=== PATIENT | male | born 1960 | race Caucasian/White ===

== ENCOUNTER 2017-01-15 09:30 | Inpatient (IN) ==
[2017-01-15] MEDS ORDERED: 0.9 % Sodium Chloride 1,000 ML IVC ONE (09:57)
[2017-01-15] MEDS ORDERED: Ondansetron 4 MG/2 ML VIAL IVP ONE (09:57)
--- NOTE | 2017-01-15 09:57 | Emergency Department Note ---
Disposition Clinical Impression: Hyponatremia Alcohol withdrawal seizure Qualifiers: Complication of substance-induced condition: with unspecified complication Qualified Code(s): F10.239 - Alcohol dependence with withdrawal, unspecified; R56.9 - Unspecified convulsions Disposition: Admitted As Inpatient Condition: Fair Referrals: Varun Jimenez MD [Primary Care Provider] - Forms: ED Satisfaction Letter Time of Disposition: 13:17 Nausea/Vomiting/Diarrhea HPI - General Chief complaint: ED Nausea/Vomiting/Diarrhea Stated complaint: vomiting, diarrhea Time Seen by Provider: 01/15/17 09:40 Source: patient, family Nursing Notes Reviewed: Yes Vital Signs Reviewed: Yes - History of Present Illness HPI Narrative: Patient is a 56-year-old male who presents to [facility] ED with 1 week history of nausea vomiting and diarrhea. States everything has been very watery. Patient is an alcoholic who has been drinking approximately 30 pack of [place] lites daily every month for the last 3 months. Family states they made him get checked out because they noticed his tremors to be worsening and he was starting to be more confused at home and stumble around. Family also states he has not been eating any food and just drinking. Patient denies any chest pain or difficulty breathing. No abdominal pain. No problems with urination. No fevers/chills. Denies any excessive Tylenol or Motrin use. No other medical problems. Pt Subjective Complaint: vomiting, diarrhea Onset (ago): week(s) Description of emesis: watery Description of Diarrhea: water Associated Abdominal Pain: No Improves with: nothing Worsens with: nonthing Associated symptoms: Reports: headaches, nausea/vomiting. Denies: chest pain, cough, diaphoresis, fever/chills, shortness of breath - Related Data Home Medications Medication Instructions Recorded Confirmed HydrOXYzine PO PRN PRN 02/27/16 Multivitamin PO DAILY 02/27/16 Previous Rx's Medication Instructions Recorded Chlordiazepoxide [Librium] 75 mg PO TID #21 capsule 03/04/16 LORazepam [Ativan] 1 mg PO Q4HR PRN #60 tablet 03/04/16 Allergies Allergy/AdvReac Type Severity Reaction Status Date / Time Sulfa (Sulfonamide Allergy Mild Rash Verified 01/15/17 09:32 Antibiotics) All systems ED: reviewed and negative except as stated. Past Medical History - Past Medical History Attestation: Yes The following information was validated with the patient. Source: patient Medical history: Reports: no medical history Surgical history: Reports: other Psychiatric history: Reports: anxiety, depression - Social History Smoking Status: Current every day smoker Smokeless Tobacco Status: No Alcohol use: Reports: heavy Drug use: Reports: none Physical Exam - General Limitations: no limitations General appearance: alert, in no apparent distress - Head Head exam: atraumatic, normocephalic, normal inspection - Eye Eye exam: Present: normal appearance, PERRL, EOMI - ENT ENT exam: normal exam, normal oropharynx, mucous membranes moist - Neck Neck exam: Present: normal inspection, full ROM, trachea midline - Chest Chest inspection: Present: normal inspection, symmetric chest wall rise - Respiratory Respiratory exam: Present: normal lung sounds bilaterally - Cardiovascular Cardiovascular exam: Present: normal rhythm, tachycardia - Abdominal Exam Abdominal exam: Present: soft, Non-Tender, normal bowel sounds. Absent: tenderness, distention, guarding, rebound, rigidity - Extremities Exam Extremities exam: Present: normal inspection, full ROM. Absent: tenderness, pedal edema - Back Exam Back exam: Present: normal inspection, full ROM. Absent: tenderness - Neurological Exam Neurological exam: Present: alert - Psychiatric Psychiatric exam: Present: normal affect, normal mood - Skin Skin exam: Present: warm, dry, intact, normal color Course Course Narrative: Patient seen and examined. Positive vomiting and diarrhea. No associated abdominal pain. Patient is an alcoholic and had 4-5 beers this morning prior to coming in. Worsening tremors, ataxia. We will give a liter of fluids, check labs, Zofran for nausea. 1 mg Ativan for any alcohol withdrawal. - Reevaluation(s) Reevaluation #1: While workup was being completed, patient had a seizure. 1 mg of Ativan was given. His seizure abated. Labwork shows low sodium of 114. We will have the team come in and place a PICC line and order 3% saline. I spoke with the acid conditioning worker Dr. Ann who has accepted patient for admission. States to repeat a BMP stat and if still low, we can start the 3% saline. Time: 13:15 Vital Signs Temperature 98.0 F 01/15/17 09:32 Pulse Rate 106 01/15/17 09:32 Respiratory Rate 14 01/15/17 09:32 Blood Pressure 141/79 01/15/17 09:32 O2 Sat by Pulse Oximetry 95 01/15/17 09:32 Temperature 98.0 F 01/15/17 09:32 Pulse Rate 85 01/15/17 11:00 Respiratory Rate 16 01/15/17 11:00 Blood Pressure 132/90 01/15/17 11:00 O2 Sat by Pulse Oximetry 97 01/15/17 11:00 Oxygen Delivery Oxygen Delivery Room Air Nausea/Vomiting/Diarrhea - MDM Narrative Medical decision making narrative: I examined this patient and my medical decision-making was reviewed with the [employer] UNIT OPERATOR/PA/Advanced Practice Nurse/Resident Physician. I agree with the documented findings, disposition and treatment plan as described except to the extent set forth below. Patient seen and evaluated that Dr. Salazar and myself, I agree with her evaluation and management plan, supravascular the patient's stay. Patient comes in today he is now on history of alcoholism quit drinking and then has drank a little bit this morning. He has been cooperative. Some nauseous, little bit weak but generalized. Not having any chest pain no fevers and no shortness of breath at this time. When start do a workup on him for his alcoholism. 1114 hrs.: Patient had one generalized seizure here. His sodium is low sort and replace that with 3% saline. Gave him another dose of Ativan here. We will also CT has had an once his labs are back any stable we will bring him in for admission. 1150 hrs.: Because the seizure we talked with pharmacy about 3% saline. They said they like to have it administered through a central line due to the fact that it can be tissue destructive visit extravasates. Patient refuses central line and I do not think he needs a central line in place for other reasons. Review make sure that he has a good IV in his before meals region where he has large veins. From the saline over an hour also running with a second IV so that it is diluted. And we will monitor for any signs of burning or pain in the area. It is difficult to say whether his seizure is from his alcohol withdrawal or from its from his low sodium. His last sodium was in the 130s where this was 114. His alcohol today is 66. Patient's in agreement with this plan. 1200 hrs.: I spoke with the PICC line team they said they would be appropriate PICC line in him in the ICU. In the medication can be run through that since that goes into the SVC. So hold off with the peripheral IV administration of the 3% saline even the pharmacy has diluted down to 500 mL's of fluid. Patient is stable at this time waiting on head CT. Then we will discuss case with ICU and admission. Head CT 01/15/17 11:14 IMPRESSION: No acute intracranial abnormality. D/ / Fredi Montesinos MD / Fredi Montesinos MD Interpreting Provider: Fredi Montesinos MD - Medical Records Medical records reviewed: Yes I reviewed the patient's medical records. - Lab Data Lab results reviewed: Yes I reviewed the patient's lab results. Result diagrams: 01/15/17 10:21 01/15/17 10:21 Lab Results 01/15/17 01/15/17 01/15/17 Range/Units 10:21 10:21 10:21 WBC 4.4 (4.3-11.1) K/mcL RBC 4.58 (4.19-5.50) M/mcL Hgb 14.4 (12.9-16.9) g/dL Hct 38.9 (37.5-50.1) % MCV 84.9 (83.0-100.0) fL MCH 31.4 (28.0-33.3) pg MCHC 37.0 H (31.6-35.5) g/dL RDW 11.9 (11.5-14.5) % Plt Count 54 L (140-400) K/mcL MPV 10.1 (9.4-12.4) fL Immature Gran % 0.7 (0-4) % Seg Neutrophils % 77.9 % Lymphocytes % 7.7 % Monocytes % 13.2 % Eosinophils % 0.0 % Basophils % 0.5 % Neutrophils # 3.4 (1.6-8.9) K/mcL Lymphocytes # 0.3 L (0.6-4.6) K/mcL Monocytes # 0.6 (0.0-1.3) K/mcL Eosinophils # 0.0 (0.0-0.6) K/mcL Basophils # 0.0 (0.0-0.2) K/mcL Sodium 114 L* (136-145) mEq/L Potassium 3.1 L (3.5-4.5) mEq/L Chloride 79 L (98-109) mEq/L Carbon Dioxide 24 (19-29) mEq/L BUN 5 L (8-26) mg/dL Creatinine 0.59 L (0.72-1.25) mg/dL Est GFR ( Amer) > 60 (> 60) Est GFR (Non-Af Amer) > 60 (> 60) BUN/Creatinine Ratio 8 (6-26) Glucose 99 (70-99) mg/dL POC Glucose (58-89) Calculated Osmolality 235 L (280-300) Calcium 8.9 (8.6-10.8) mg/dL Total Bilirubin 0.7 (0.2-1.2) mg/dL AST 232 H (5-34) Units/L ALT 110 H (0-55) Units/L Alkaline Phosphatase 105 (38-126) Units/L Troponin I 0.00 (0-0.03) ng/mL Serum Total Protein 6.5 (6.0-8.3) g/dL Albumin 3.4 L (3.5-5.0) g/dL Globulin 3.1 (2.4-3.5) g/dL Albumin/Globulin Ratio 1.1 (1.1-2.2) Lipase 54 (8-78) Units/L Acetaminophen 5.0 L (10-30) mcg/mL Ethyl Alcohol 66 H (0-10) mg/dL 01/15/ Range/Units 11:36 WBC (4.3-11.1) K/mcL RBC (4.19-5.50) M/mcL Hgb (12.9-16.9) g/dL Hct (37.5-50.1) % MCV (83.0-100.0) fL MCH (28.0-33.3) pg MCHC (31.6-35.5) g/dL RDW (11.5-14.5) % Plt Count (140-400) K/mcL MPV (9.4-12.4) fL Immature Gran % (0-4) % Seg Neutrophils % % Lymphocytes % % Monocytes % % Eosinophils % % Basophils % % Neutrophils # (1.6-8.9) K/mcL Lymphocytes # (0.6-4.6) K/mcL Monocytes # (0.0-1.3) K/mcL Eosinophils # (0.0-0.6) K/mcL Basophils # (0.0-0.2) K/mcL Sodium (136-145) mEq/L Potassium (3.5-4.5) mEq/L Chloride (98-109) mEq/L Carbon Dioxide (19-29) mEq/L BUN (8-26) mg/dL Creatinine (0.72-1.25) mg/dL Est GFR ( Amer) (> 60) Est GFR (Non-Af Amer) (> 60) BUN/Creatinine Ratio (6-26) Glucose (70-99) mg/dL POC Glucose 112 H (58-89) Calculated Osmolality (280-300) Calcium (8.6-10.8) mg/dL Total Bilirubin (0.2-1.2) mg/dL AST (5-34) Units/L ALT (0-55) Units/L Alkaline Phosphatase (38-126) Units/L Troponin I (0-0.03) ng/mL Serum Total Protein (6.0-8.3) g/dL Albumin (3.5-5.0) g/dL Globulin (2.4-3.5) g/dL Albumin/Globulin Ratio (1.1-2.2) Lipase (8-78) Units/L Acetaminophen (10-30) mcg/mL Ethyl Alcohol (0-10) mg/dL - Radiology Data Radiology results reviewed: Yes I reviewed the patient's radiology results. - EKG Data EKG attestation: Yes I reviewed and interpreted this EKG. EKG results narrative: EKG done at 11:15 shows normal sinus rhythm with a rate of 80 beats per minute. No acute ST elevation or depression. Normal axis. Unchanged from prior EKG done 02/27/2016.
[2017-01-15] MEDS ORDERED: *HR* LORazepam 2 MG/ML VIAL IVP ONE (09:59)
[2017-01-15] MEDS ORDERED: Thiamine (B-1) 100 MG in D5% in Water 50 ML IVPB STA (10:12)
[2017-01-15 10:29] LABS: Basophils % 0.5 %; Hematocrit 38.9 % (37.5-50.1); Hemoglobin 14.4 g/dL (12.9-16.9); Immature Granulocytes % 0.7 % (0-4); Lymphocytes # 0.3 K/mcL (0.6-4.6); Lymphocytes % 7.7 %; Mean Corpuscular Hemoglobin 31.4 pg (28.0-33.3); Mean Corpuscular Volume 84.9 fL (83.0-100.0); Mean Platelet Volume 10.1 fL (9.4-12.4); Monocytes # 0.6 K/mcL (0.0-1.3); Monocytes % 13.2 %; Neutrophils # 3.4 K/mcL (1.6-8.9); Red Blood Count 4.58 M/mcL (4.19-5.50); Red Cell Distribution Width 11.9 % (11.5-14.5); Segmented Neutrophils % 77.9 %
[2017-01-15 10:30] LABS: Platelet Count 54 K/mcL (140-400)
[2017-01-15 10:44] LABS: Alanine Aminotransferase 110 Units/L (0-55); Albumin 3.4 g/dL (3.5-5.0); Albumin/Globulin Ratio 1.1 (1.1-2.2); Alkaline Phosphatase 105 Units/L (38-126); Aspartate Amino Transferase 232 Units/L (5-34); BUN/Creatinine Ratio 8 (6-26); Bilirubin,Total 0.7 mg/dL (0.2-1.2); Calcium 8.9 mg/dL (8.6-10.8); Carbon Dioxide 24 mEq/L (19-29); Chloride 79 mEq/L (98-109); Globulin 3.1 g/dL (2.4-3.5); Glucose 99 mg/dL (70-99); Lipase 54 Units/L (8-78); Osmolality,Calculated 235 (280-300); Potassium 3.1 mEq/L (3.5-4.5); Total Protein 6.5 g/dL (6.0-8.3); eGFR For African Americans > 60 (> 60); eGFR For Non-African Americans > 60 (> 60)
[2017-01-15 10:45] LABS: Blood Urea Nitrogen 5 mg/dL (8-26)
[2017-01-15 10:46] LABS: Sodium 114 mEq/L (136-145)
[2017-01-15] MEDS ORDERED: *HR* 3% Sodium Chloride 500 ML IV.SOLN IVC ONE (11:14)
[2017-01-15 11:24] LABS: Ethanol 66 mg/dL (0-10)
[2017-01-15] MEDS ORDERED: *HR* Promethazine 25 MG/ML VIAL IVP PRN (13:55)
[2017-01-15] MEDS ORDERED: diazePAM 10 MG/2 ML SYRINGE IVP PRN ×5 (13:55)
--- NOTE | 2017-01-15 14:16 | Pulmonology History & Physical ---
Date of Encounter: 01/15/17 Time of Encounter: 14:14 Assessment and Plan (1) Hyponatremia Current visit: Yes Status: Acute 114 on admission. Plan to correct with less than 8 mEq every 24 hours. Received 1 L of normal saline in the emergency department. Plan: We will monitor every 2 hours. Consult nephro We will consider starting 3% normal saline after sodium recheck. Protonix for GI prophylaxis. Patient on electrolyte protocol for electrolyte replacement. (2) Alcohol withdrawal Current visit: No Status: Suspected 15 mg of Valium scheduled every 6 hours with 5 mg of Valium every 3 hours when necessary. We will reassess daily for dosing. Qualifiers: Complication of substance-induced condition: with delirium Qualified Code(s ): F10.231 - Alcohol dependence with withdrawal delirium (3) Alcohol withdrawal seizure Current visit: Yes Status: Acute Plan: 15 mg Valium every 6 hours scheduled. 5 mg Valium when necessary every 3 hours. Qualifiers: Complication of substance-induced condition: with unspecified complication Qualified Code(s): F10.239 - Alcohol dependence with withdrawal, unspecified; R56.9 - Unspecified convulsions (4) DVT prophylaxis Current visit: Yes Status: Acute ICDs. (5) Tobacco abuse Current visit: No Status: Acute (6) Elevated LFTs Current visit: Yes Status: Acute Will monitor daily Plan: Right upper quadrant ultrasound. History of Present Illness HPI: Mr. Parker is a 56 year old male who presents emergency department today for nausea and vomiting. Patient states that he has only been able to keep down 5 beers today. He generally drinks 1 beer after another she reports. She states this is about a 30 pack [place] a day. She states he has been increasingly shaky over the past couple days. He is found to be hyponatremic at 114. In the emergency department he had one generalized seizure that was resolved with 1 mg of Ativan. His head CT was read as normal. He is being admitted to the ICU for hyponatremia. He is alert but somewhat confused. He is in no respiratory distress. Past Med Surg Social Fam HX - Past Medical History Medical history: no medical history Psychiatric history: anxiety, depression - Past Surgical History Surgical History: other - Social History Smoking Status: Current every day smoker Smokeless Tobacco Status: No Alcohol use: heavy Drug use: none - Family History Mother Adopted: No Living Status: Hx Family Cardiac Disorders: Yes Hx Family Respiratory Disorders: Yes Hx Family Cancer: Yes Hx Family GI Disorders: No Hx Family Endocrine Disorder: No Hx Family Neuromuscular Disorders: No Hx Family Neurologic Disorders: No Hx Family HEENT Disorders: No Hx Family Autoimmune Disorders: No Father Hx Family Neurologic Disorders: Yes (CVA) Medications and Allergies Cyanocobalamin (Vitamin B-12) [Vitamin B-12] 100 mg PO DAILY 01/15/17 [History] Hydroxyzine HCl [Hydroxyzine HCl] 25 - 50 mg PO Q8H PRN 01/15/17 [History] Multivitamin [Tab-A-Kian] 1 tab PO DAILY 01/15/17 [History] Allergies Sulfa (Sulfonamide Antibiotics) Allergy (Mild, Verified 01/15/17 09:32) Rash All Systems: A 10-system review of systems was performed and is negative for pertinent findings except as documented above in the HPI. Physical Examination General appearance: no acute distress, alert, appears uncomfortable, other ( Confused) Eyes: nonicteric ENT: oropharynx moist Neck: supple, no lymphadenopathy, no JVD Effort: normal Inspection: normal Auscultation: bilateral: clear Cardiovascular: regular rate and rhythm Gastrointestinal: normoactive bowel sounds, soft, non-tender, non-distended Integumentary: normal Extremities: no cyanosis Musculoskeletal: no deformities non-focal exam, pupils equal and round, motor strength normal and symmetric mood appropriate, affect normal Results - Laboratory Findings CBC and BMP: 01/15/17 10:21 01/15/17 13:42 Abnormal lab findings: Abnormal lab results MCHC 37.0 g/dL (31.6-35.5) H 01/15/17 10:21 Plt Count 54 K/mcL (140-400) L 01/15/17 10:21 Lymphocytes # 0.3 K/mcL (0.6-4.6) L 01/15/17 10:21 Sodium 114 mEq/L (136-145) L* 01/15/17 10:21 Potassium 3.1 mEq/L (3.5-4.5) L 01/15/17 10:21 Chloride 79 mEq/L (98-109) L 01/15/17 10:21 BUN 5 mg/dL (8-26) L 01/15/17 10:21 Creatinine 0.59 mg/dL (0.72-1.25) L 01/15/17 10:21 POC Glucose 112 (58-89) H 01/15/17 11:36 Calculated Osmolality 235 (280-300) L 01/15/17 10:21 AST 232 Units/L (5-34) H 01/15/17 10:21 ALT 110 Units/L (0-55) H 01/15/17 10:21 Albumin 3.4 g/dL (3.5-5.0) L 01/15/17 10:21 Acetaminophen 5.0 mcg/mL (10-30) L 01/15/17 10:21 Ethyl Alcohol 66 mg/dL (0-10) H 01/15/17 10:21 - Diagnostic Findings Additional studies: Head CT 01/15/17 11:14 IMPRESSION: No acute intracranial abnormality. D/ / Fredi Montesinos MD / Fredi Montesinos MD Interpreting Provider: Fredi Montesinos MD
[2017-01-15] MEDS ORDERED: diazePAM 10 MG/2 ML SYRINGE IVP SCH (14:21)
[2017-01-15] MEDS ORDERED: Lidocaine -MPF 1% 5 ML AMPUL INFILT ONE (14:48)
[2017-01-15 15:03] LABS: BUN/Creatinine Ratio 7 (6-26); Calcium 8.2 mg/dL (8.6-10.8); Carbon Dioxide 27 mEq/L (19-29); Chloride 83 mEq/L (98-109); Glucose 94 mg/dL (70-99); Osmolality,Calculated 237 (280-300); Potassium 3.4 mEq/L (3.5-4.5); eGFR For African Americans > 60 (> 60); eGFR For Non-African Americans > 60 (> 60)
[2017-01-15 15:04] LABS: Blood Urea Nitrogen 4 mg/dL (8-26)
[2017-01-15 15:05] LABS: Sodium 115 mEq/L (136-145)
[2017-01-15] MEDS ORDERED: 0.9 % Sodium Chloride 1,000 ML IVC SCH (15:15)
[2017-01-15] MEDS: Folic Acid 1 MG in D5% in Water 50 ML IVPB SCH (16:30)
[2017-01-15] MEDS: Pantoprazole 40 MG VIAL IVP SCH (16:31)
--- NOTE | 2017-01-15 17:24 | Nephrology Consult Note ---
Date of Encounter: 01/15/17 Time of Encounter: 17:15 Assessment and Plan (1) Hyponatremia Status: Chronic Hyponatremia in the setting of EtOH abuse and intractable N/D/V Agree with volume repletion for now Will check urine sodium, creatinine and osmolality Will check uric acid level as well as TSH Continue serial sodium check and if repeat sodium is not at least up above 116, will start hypertonic saline at 30cc/hr till sodium up to 120 (2) Alcohol withdrawal Status: Acute Qualifiers: Complication of substance-induced condition: with delirium Qualified Code(s ): F10.231 - Alcohol dependence with withdrawal delirium (3) Hypokalemia Status: Acute Potassium improving with supplements from 3.1 to 3.4likely low from GI losses Will check magnesium levels as well History of Present Illness - Reason for Consult Consult date: 01/15/17 hyponatremia Requesting physician: Chyna Sanchez - History of Present Illness 56 y o male with PMH of EtOH bause admitted with intractable nausea and vomiting along with diarrhea. H was noted with sodium of 114, previously 136 as of march 2016. He had a witnessed seizure activity during ER stay and was treated with valium and also received a liter of saline. Repeat sodium now 115 after almost 4 hours. He reports daily beer consumption up to 30 cans of (12oz) beer daily. He denies any urinary sxs. He reports also smooking under a pack of cigs a day. No diuretics use noted. EtOH level noted elevated at 66. Past Med Surg Social Fam HX - Past Medical History Medical history: no medical history Psychiatric history: anxiety, depression - Past Surgical History Surgical History: other - Social History Smoking Status: Current every day smoker Smokeless Tobacco Status: No Alcohol use: heavy Drug use: none - Family History Mother Adopted: No Living Status: Cause of : old age Hx Family Cardiac Disorders: Yes Hx Family Respiratory Disorders: Yes Hx Family Cancer: Yes Hx Family GI Disorders: No Hx Family Endocrine Disorder: No Hx Family Neuromuscular Disorders: No Hx Family Neurologic Disorders: No Hx Family HEENT Disorders: No Hx Family Autoimmune Disorders: No Father Living Status: Cause of : stroke Hx Family Neurologic Disorders: Yes (CVA) Medications and Allergies Cyanocobalamin (Vitamin B-12) [Vitamin B-12] 100 mg PO DAILY 01/15/17 [History] Multivitamin [Tab-A-Kian] 1 tab PO DAILY 01/15/17 [History] Diazepam [Valium] 2 mg PO DAILY #12 tablet 01/23/17 [Rx] Diazepam [Valium] 2 mg PO DAILY PRN #10 tablet 01/23/17 [Rx] Disulfiram [Antabuse] 250 mg PO DAILY #30 tablet 01/23/17 [Rx] Folic Acid 1 mg PO DAILY #30 tablet 01/23/17 [Rx] Ipratropium/Albuterol Neb [Duoneb] 3 ml IH Q4HR 30 Days 01/23/17 [Rx] Magnesium Oxide [Mag-Ox] 400 mg PO BID #60 tablet 01/23/17 [Rx] Nebulizer [Aeroeclipse] 1 each AD #1 each 01/23/17 [Rx] Nicotine Patch [Nicoderm] 21 mg TD DAILY #30 patch.td24 01/23/17 [Rx] Sodium Chloride 1 gm PO BID #60 tablet 01/23/17 [Rx] Thiamine (B-1) [Vitamin B-1] 100 mg PO DAILY #30 tablet 01/23/17 [Rx] Allergies Sulfa (Sulfonamide Antibiotics) Allergy (Mild, Verified 01/15/17 09:32) Rash Review of Systems All Systems: reviewed and no additional remarkable complaints except as stated ( ten systems reviewed) Exam - Vital Signs Vital signs: Initial Vital Signs Temp Pulse Resp BP Pulse Ox 98.0 F 106 14 141/79 95 01/15/17 09:32 01/15/17 09:32 01/15/17 09:32 01/15/17 09:32 01/15/17 09:32 Vital Signs - Last 8 Hours Temp Pulse Resp BP Pulse Ox 01/15/17 17:05 99.2 F 01/15/17 15:18 82 01/15/17 15:00 86 18 115/68 94 L 01/15/17 14:00 98.5 F 84 18 140/121 94 L Intake and Output 01/15/17 01/15/17 01/15/17 07:59 15:59 23:59 Output Total 800 / 800 Balance -800 / -800 Output: Urine 800 / 800 Other: Stool Size Small Stool Consistency loose liquid Stool Color Green # Bowel Movements 2 Blood Glucose* 102 - General Appearance General appearance: moderate distress (shaking continuously) EENT: ATNC, mucous membranes moist Neck: no JVD, supple Respiratory: clear Cardiology: no edema, regular rate, regular rhythm, normal S1, normal S2 Gastrointestinal: no tenderness, no guarding Integumentary: warm and dry Neurologic: alert and oriented x3 Musculoskeletal: no deformities Psychiatric: mood/affect appropriate Results - Lab Results 01/21/17 07:11 01/23/17 06:12 Most recent lab results Calcium 8.2 mg/dL (8.6-10.8) L 01/15/17 13:42 Consult Discharge Plan - Plan Instructions: Alcohol Withdrawal (DC), Pneumonia (DC) Additional Instructions: STOP DRINKING ALCOHOL. USE OXYGEN ALL THE TIME FOLLOW UP WITH primary care doctor within 1 week Referrals: Varun Jimenez MD [Primary Care Provider] - (f/u in 1 week) Prescriptions: Ipratropium/Albuterol Neb [Duoneb] 3 ml IH Q4HR 30 Days Diazepam [Valium] 2 mg PO DAILY PRN #10 tablet PRN Reason: Alcohol Withdrawal Diazepam [Valium] 2 mg PO DAILY #12 tablet Disulfiram [Antabuse] 250 mg PO DAILY #30 tablet Folic Acid 1 mg PO DAILY #30 tablet Nebulizer [Aeroeclipse] 1 each MC AD #1 each Nicotine Patch [Nicoderm] 21 mg TD DAILY #30 patch.td24 Sodium Chloride 1 gm PO BID #60 tablet Thiamine (B-1) [Vitamin B-1] 100 mg PO DAILY #30 tablet
[2017-01-15 17:44] LABS: Bilirubin,Urine Negative (Negative); Blood,Urine Negative (Negative); Clarity,Urine Clear (Clear); Color,Urine Yellow (Yellow); Glucose,Urine (UA) Normal (Normal); Ketones,Urine Negative (Negative); Leukocyte Esterase,Urine Negative (Negative); Nitrite,Urine Negative (Negative); PH,Urine 6.5 pH Units (5.0-8.0); Protein,Urine Negative (Neg-Trace); Specific Gravity,Urine 1.007 (1.010-1.025); Urobilinogen,Urine Normal (Normal)
[2017-01-15 18:03] LABS: Magnesium 1.5 mg/dL (1.6-2.6); Phosphorous 2.8 mg/dL (2.3-4.7)
[2017-01-15 18:04] LABS: Albumin 3.1 g/dL (3.5-5.0); Bilirubin,Direct 0.5 mg/dL (0.0-0.5); Bilirubin,Indirect 0.5 mg/dL (0.0-1.2); Total Protein 6.1 g/dL (6.0-8.3); Uric Acid 2.5 mg/dL (3.5-7.2)
[2017-01-15 18:25] LABS: Thyroid Stimulating Hormone 1.233 mcIU/mL (0.350-4.840)
[2017-01-15 18:57] LABS: Ionized Calcium 1.05 mmol/L (1.15-1.35)
[2017-01-15] MEDS: diazePAM 10 MG/2 ML SYRINGE IVP SCH ×2 (19:58→23:17)
[2017-01-15 20:18] LABS: Creatinine,Urine 34 mg/dL
[2017-01-15 20:43] LABS: Sodium, Urine < 20.0 mEq/L
[2017-01-15 21:55] LABS: Osmolality,Urine 144 mOsm/kg (300-1090)
[2017-01-16] MEDS ORDERED: 0.9 % Sodium Chloride 1,000 ML IVC SCH (00:30)
[2017-01-16] MEDS: diazePAM 10 MG/2 ML SYRINGE IVP PRN ×4 (02:42→20:34)
[2017-01-16 03:33] LABS: Basophils % 0.3 %; Hematocrit 36.7 % (37.5-50.1); Mean Corpuscular Volume 85.5 fL (83.0-100.0); Red Blood Count 4.29 M/mcL (4.19-5.50); Red Cell Distribution Width 11.9 % (11.5-14.5)
[2017-01-16 03:35] LABS: Hemoglobin 13.1 g/dL (12.9-16.9); Immature Granulocytes % 0.6 % (0-4); Immature Platelets 6.9 % (1.1-6.1); Lymphocytes # 0.3 K/mcL (0.6-4.6); Lymphocytes % 10.4 %; Mean Corpuscular HGB Conc 35.7 g/dL (31.6-35.5); Mean Corpuscular Hemoglobin 30.5 pg (28.0-33.3); Mean Platelet Volume 10.3 fL (9.4-12.4); Monocytes # 0.5 K/mcL (0.0-1.3); Monocytes % 15.7 %; Neutrophils # 2.3 K/mcL (1.6-8.9)
[2017-01-16 03:46] LABS: Alanine Aminotransferase 111 Units/L (0-55); Albumin 2.8 g/dL (3.5-5.0); Alkaline Phosphatase 100 Units/L (38-126); Aspartate Amino Transferase 280 Units/L (5-34); BUN/Creatinine Ratio 8 (6-26); Bilirubin,Total 0.8 mg/dL (0.2-1.2); Calcium 7.6 mg/dL (8.6-10.8); Carbon Dioxide 22 mEq/L (19-29); Chloride 87 mEq/L (98-109); Globulin 2.9 g/dL (2.4-3.5); Glucose 80 mg/dL (70-99); Osmolality,Calculated 246 (280-300); Total Protein 5.7 g/dL (6.0-8.3); eGFR For African Americans > 60 (> 60); eGFR For Non-African Americans > 60 (> 60)
[2017-01-16 03:47] LABS: Platelet Count 53 K/mcL (140-400)
[2017-01-16 03:48] LABS: Blood Urea Nitrogen 5 mg/dL (8-26)
[2017-01-16 03:49] LABS: Sodium 120 mEq/L (136-145)
[2017-01-16] MEDS: Potassium Chloride 40 MEQ/200 ML BAG IVPB PRN ×2 (04:11→16:21)
[2017-01-16] MEDS: diazePAM 10 MG/2 ML SYRINGE IVP SCH ×4 (04:53→23:18)
[2017-01-16] MEDS: Pantoprazole 40 MG VIAL IVP SCH (04:53)
[2017-01-16 05:00] LABS: Ionized Calcium 1.02 mmol/L (1.15-1.35)
[2017-01-16 05:09] LABS: Magnesium 1.7 mg/dL (1.6-2.6); Phosphorous 2.3 mg/dL (2.3-4.7)
[2017-01-16] MEDS: Potassium Phosphate 44 MEQ in 0.9 % Sodium Chloride 250 ML IVPB PRN (05:36)
[2017-01-16] MEDS: Magnesium Sulfate 2 GM in D5% in Water 100 ML IVPB PRN ×2 (05:36→15:46)
[2017-01-16] MEDS: Calcium Gluconate 1,000 MG in D5% in Water 100 ML IVPB PRN ×2 (05:36→15:47)
--- NOTE | 2017-01-16 08:39 | Pulmonology Progress Note ---
Date of Encounter: 01/16/17 Time of Encounter: 08:36 Assessment and Plan (1) Hyponatremia Current Visit: Yes Status: Chronic 56 y/o male with h of alcoholism drinks up to 30 beers a day came to ER with N/ V of two days. He had a seziure in the ER and was given Ativian. On admission he had sodium of 114. He was given 1L NS in ER and has been receiving 75cc NS in the ICU. Awake and alert x3. No return of seizures. Sodium has increased 6meq in the past 24 hours. Will continue IVF Continue GI prophylaxis. appreciate nephrology input. -urine sodium <20 (low), hypoosmolar urine, TSH WNL: consistent with hypovolemic hypoosmolar hyponatremia. monitor mental status clear liquid diet. (2) Alcohol withdrawal Current Visit: Yes Status: Acute Fever 102.4, whole body tremors, Continue valium 15mg and 5mg prn continue valium for another 24 hours and will start tapering tomorrow. tynenol prn fever continue thiamine, folic acid continue phenergan for nausea. Qualifiers: Complication of substance-induced condition: with delirium Qualified Code(s ): F10.231 - Alcohol dependence with withdrawal delirium (3) Alcohol withdrawal seizure Current Visit: Yes Status: Acute Has not had repeat seizure. Continue Valium 15mg scheduled and 5mg prn Qualifiers: Complication of substance-induced condition: with unspecified complication Qualified Code(s): F10.239 - Alcohol dependence with withdrawal, unspecified; R56.9 - Unspecified convulsions (4) Elevated LFTs Current Visit: Yes Status: Acute 2nd to chronic acloholism, LFTs stable from yesterday with AST: ALT ratio 2:1. Liver ultrasound shows fatty liver Low platelets (53) Will check PT/INR hepatitis panel pending. (5) Hypokalemia Current Visit: Yes Status: Acute K+ is 3 continue electrolyte protocol replacement. (6) Tobacco abuse Current Visit: Yes Status: Chronic (7) DVT prophylaxis Current Visit: Yes Status: Acute ICDS Subjective Principal diagnosis: Hyponatremia 2nd to alcohol intoxication Interval history: Patient had no acute events overnight. He has no complaints. He is awake and alert and conversing. He denies nausea and vomiting. Objective PUL Vital signs: Last Vital Signs Temp 102.4 F H 01/16/17 07:00 Pulse 90 03/14/17 08:00 Resp 17 01/16/17 08:00 BP 124/71 01/16/17 08:00 Pulse Ox 97 01/16/17 08:03 General appearance: no acute distress, alert Eyes: nonicteric ENT: oropharynx moist Mallampati (class): 1 Neck: no lymphadenopathy, no JVD Effort: normal Auscultation: bilateral: clear Cardiovascular: regular rate and rhythm Gastrointestinal: normoactive bowel sounds, soft, non-tender, non-distended Integumentary: normal Extremities: no cyanosis, no edema, no clubbing Musculoskeletal: no deformities normal mental status, pupils equal and round, CN II-XII normal tremors b/l upper extremities. Results - Laboratory Findings CBC and BMP: 01/16/17 03:20 01/16/17 05:47 Abnormal lab findings: Abnormal lab results WBC 3.2 K/mcL (4.3-11.1) L 01/16/17 03:20 Hct 36.7 % (37.5-50.1) L 01/16/17 03:20 MCHC 35.7 g/dL (31.6-35.5) H 01/16/17 03:20 Plt Count 53 K/mcL (140-400) L 01/16/17 03:20 Lymphocytes # 0.3 K/mcL (0.6-4.6) L 01/16/17 03:20 Immature Plt Fraction 6.9 % (1.1-6.1) H 01/16/17 03:20 Sodium 120 mEq/L (136-145) L* 01/16/17 05:47 Potassium 3.0 mEq/L (3.5-4.5) L 01/16/17 03:20 Chloride 87 mEq/L (98-109) L 01/16/17 03:20 BUN 5 mg/dL (8-26) L 01/16/17 03:20 Creatinine 0.62 mg/dL (0.72-1.25) L 01/16/17 03:20 POC Glucose 102 (58-89) H 01/15/17 15:47 Serum Osmolality 246 mOsm/kg (280-300) L 01/15/17 21:30 Calculated Osmolality 246 (280-300) L 01/16/17 03:20 Uric Acid 2.5 mg/dL (3.5-7.2) L 01/15/17 17:39 Calcium 7.6 mg/dL (8.6-10.8) L 01/16/17 03:20 Ionized Calcium 1.02 mmol/L (1.15-1.35) L 01/16/17 04:25 AST 280 Units/L (5-34) H 01/16/17 03:20 ALT 111 Units/L (0-55) H 01/16/17 03:20 Serum Total Protein 5.7 g/dL (6.0-8.3) L 01/16/17 03:20 Albumin 2.8 g/dL (3.5-5.0) L 01/16/17 03:20 Albumin/Globulin Ratio 1.0 (1.1-2.2) L 01/16/17 03:20 Ur Specific [place] 1.007 (1.010-1.025) L 01/15/17 16:28 Urine Osmolality 144 mOsm/kg (300-1090) L 01/15/17 16:28 Acetaminophen 5.0 mcg/mL (10-30) L 01/15/17 10:21 Ethyl Alcohol 66 mg/dL (0-10) H 01/15/17 10:21 - Diagnostic Findings Chest x-ray: report reviewed (developing right upper lobe pneumonia (possible) ) - Clinical Findings Intake & Output: Intake & Output 01/15/17 01/16/17 01/16/17 23:59 07:59 15:59 Intake Total 50.2 / 50.2 200 / 200 Output Total 1000 / 1000 600 / 600 125 / 125 Balance -949.8 / -949.8 -400 / -400 -125 / -125 Consult Discharge Plan - Plan Referrals: Varun Jimenez MD [Primary Care Provider] -
[2017-01-16] MEDS ORDERED: Thiamine (B-1) 100 MG, Folic Acid 1 MG, MVI, adult with vitamin K 10 ML in 0.9 % Sodi... IV SCH (09:00)
[2017-01-16] MEDS ORDERED: Thiamine (B-1) 100 MG in D5% in Water 50 ML IVPB SCH (09:00)
[2017-01-16] MEDS: 0.9 % Sodium Chloride 1,000 ML IVC SCH ×2 (09:09→21:04)
[2017-01-16] MEDS: Folic Acid 1 MG in D5% in Water 50 ML IVPB SCH (09:10)
[2017-01-16 10:47] LABS: INR 1.1; Prothrombin Time 12.4 Seconds (9.4-12.1)
[2017-01-16 10:50] LABS: Ionized Calcium 0.99 mmol/L (1.15-1.35)
[2017-01-16 11:00] LABS: BUN/Creatinine Ratio 8 (6-26); Calcium 7.4 mg/dL (8.6-10.8); Carbon Dioxide 22 mEq/L (19-29); Chloride 88 mEq/L (98-109); Glucose 89 mg/dL (70-99); Magnesium 1.9 mg/dL (1.6-2.6); Osmolality,Calculated 249 (280-300); Potassium 3.8 mEq/L (3.5-4.5); Sodium 121 mEq/L (136-145); eGFR For African Americans > 60 (> 60); eGFR For Non-African Americans > 60 (> 60)
[2017-01-16 11:02] LABS: Blood Urea Nitrogen 5 mg/dL (8-26); Phosphorous 3.7 mg/dL (2.3-4.7)
--- NOTE | 2017-01-16 11:24 | Nephrology Progress Note ---
Date of Encounter: 01/16/17 Time of Encounter: 11:00 - Assessment and Plan (1) Hyponatremia Status: Chronic Hyponatremia due to volume depletion +/- beer potomia Sodium improving and currently at 121, continue IVF with NS Tanner consistent with volume depletion at <20 Uosmolality noted appropriate at 144 (2) Alcohol withdrawal Status: Acute EtOH withdrawal protocol per primary team Qualifiers: Complication of substance-induced condition: with delirium Qualified Code(s ): F10.231 - Alcohol dependence with withdrawal delirium (3) Hypokalemia Status: Acute Subjective Principal diagnosis: Hyponatremia 2nd to alcohol intoxication Interval history: Pt seen and examined with some confusion and still with tremors Objective - Vital Signs Vital signs: Vital Signs Temp Pulse Resp BP Pulse Ox 01/16/17 10:00 102.9 F H 103 16 133/110 94 L 01/16/17 09:00 92 22 124/94 95 01/16/17 08:03 97 01/16/17 08:00 90 17 124/71 96 01/16/17 07:00 102.4 F H 84 19 137/83 96 01/16/17 05:52 86 20 132/83 98 01/16/17 05:05 86 16 129/82 97 01/16/17 04:46 101.2 F H 01/16/17 04:00 91 18 124/76 97 01/16/17 03:00 96 22 132/81 97 01/16/17 01:56 96 16 120/87 97 01/16/17 01:00 91 18 135/88 97 01/16/17 00:00 86 17 151/88 95 01/15/17 23:00 96 22 155/86 96 01/15/17 22:00 96 20 122/75 96 01/15/17 21:00 86 17 134/88 96 01/15/17 20:01 100.9 F H 01/15/17 20:00 89 22 131/74 94 L 01/15/17 19:00 88 18 137/75 92 L 01/15/17 18:50 86 01/15/17 18:02 86 18 137/75 94 L 01/15/17 17:05 99.2 F 01/15/17 15:18 82 01/15/17 15:00 86 18 115/68 94 L 01/15/17 14:00 98.5 F 84 18 140/121 94 L Intake and Output 01/15/17 01/16/17 01/16/17 23:59 07:59 15:59 Intake Total 50.2 / 50.2 200 / 200 Output Total 1000 / 1000 600 / 600 125 / 125 Balance -949.8 / -949.8 -400 / -400 -125 / -125 Intake: IV Fluids 50.2 / 50.2 200 / 200 Folvite 1 MG In Dextrose 50.2 / 50.2 5% 50 ML @ 50 mls/hr IVPB DAILY [facility] Rx#:[id number] Potassium Chloride 20 mEq 200 / 200 /100 mL 40 meq In 200 ml @ 100 mls/hr IVPB Q1H PRN Rx#:[id number] Oral 0 / 0 Output: Urine 1000 / 1000 600 / 600 125 / 125 Other: Stool Size Small Stool Consistency loose liquid Stool Color Green # Bowel Movements 2 Blood Glucose* 102 - General Appearance General appearance: Present: chronically ill EENT: Present: ATNC, mucous membranes moist Neck: Present: no JVD, supple Respiratory: Present: clear Cardiology: Present: no edema, normal S1, normal S2 Gastrointestinal: Present: no tenderness, no guarding Integumentary: Present: warm and dry Neurologic: Present: confused Additional Comments: tremors Musculoskeletal: Present: no deformities Psychiatric: Present: mood/affect appropriate - Lab 01/21/17 07:11 01/23/17 06:12 Most recent lab results Calcium 7.4 mg/dL (8.6-10.8) L 01/16/17 10:30 Phosphorus 3.7 mg/dL (2.3-4.7) D 01/16/17 10:30 Magnesium 1.9 mg/dL (1.6-2.6) 01/16/17 10:30 Urine Creatinine 34 mg/dL 01/15/17 16:28 Urine Sodium < 20.0 mEq/L 01/15/17 16:28 Consult Discharge Plan - Plan Instructions: Alcohol Withdrawal (DC), Pneumonia (DC) Additional Instructions: STOP DRINKING ALCOHOL. USE OXYGEN ALL THE TIME FOLLOW UP WITH primary care doctor within 1 week Referrals: Varun Jimenez MD [Primary Care Provider] - (f/u in 1 week) Prescriptions: Ipratropium/Albuterol Neb [Duoneb] 3 ml IH Q4HR 30 Days Diazepam [Valium] 2 mg PO DAILY PRN #10 tablet PRN Reason: Alcohol Withdrawal Diazepam [Valium] 2 mg PO DAILY #12 tablet Disulfiram [Antabuse] 250 mg PO DAILY #30 tablet Folic Acid 1 mg PO DAILY #30 tablet Nebulizer [Aeroeclipse] 1 each MC AD #1 each Nicotine Patch [Nicoderm] 21 mg TD DAILY #30 patch.[id number] Sodium Chloride 1 gm PO BID #60 tablet Thiamine (B-1) [Vitamin B-1] 100 mg PO DAILY #30 tablet
[2017-01-16] MEDS: Acetaminophen 325 MG TABLET PO PRN ×2 (11:39→23:41)
[2017-01-16] MEDS: *HR* Heparin 5,000 UNIT/ML VIAL SQ SCH ×2 (15:45→20:56)
--- NOTE | 2017-01-16 15:47 | Electrocardiograph Report ---
[address] [place] [address] Test Date: 2017-01-15 Pat Name: Douglas Parker Department: 103 Room: 02 Gender: M Residential Life Director: : 1960 Requested By: Manuela Schmidt Order Number: [id number] Reading MD: Shyanne Cohen Measurements Intervals [place] Rate: 80 P: 62 MN: 205 QRS: 50 QRSD: 98 T: 69 QT: 359 QTc: 395 Interpretive Statements SINUS RHYTHM INCOMPLETE RIGHT BUNDLE BRANCH BLOCK SEPTAL MYOCARDIAL INFARCTION, PROBABLY OLD Electronically Signed On 01-16-2017 15:46:01 EDT by Shyanne Cohen
[2017-01-16 15:58] LABS: Phosphorous 3.3 mg/dL (2.3-4.7); Potassium 3.1 mEq/L (3.5-4.5)
[2017-01-17 01:13] LABS: Ionized Calcium 1.02 mmol/L (1.15-1.35); Magnesium 1.8 mg/dL (1.6-2.6); Potassium 3.2 mEq/L (3.5-4.5)
[2017-01-17] MEDS: Potassium Chloride 40 MEQ/200 ML BAG IVPB PRN (01:19)
[2017-01-17] MEDS: Magnesium Sulfate 2 GM in D5% in Water 100 ML IVPB PRN (01:33)
[2017-01-17] MEDS: Calcium Gluconate 1,000 MG in D5% in Water 100 ML IVPB PRN (01:33)
[2017-01-17] MEDS ORDERED: Albuterol 2.5 MG/3 ML NEBULIZER IH PRN (01:59)
[2017-01-17] MEDS ORDERED: Benzonatate 100 MG CAPSULE PO PRN (02:00)
[2017-01-17] MEDS: Levofloxacin 500 MG/100 ML 500 MG/100 ML BAG IVPB SCH (02:15)
[2017-01-17] MEDS: 0.9 % Sodium Chloride 1,000 ML IVC SCH ×2 (02:30→09:37)
[2017-01-17 03:34] LABS: Hemoglobin 14.1 g/dL (12.9-16.9); Mean Platelet Volume 9.5 fL (9.4-12.4)
[2017-01-17 03:35] LABS: Hematocrit 40.3 % (37.5-50.1); Immature Platelets 4.8 % (1.1-6.1); Mean Corpuscular Hemoglobin 30.8 pg (28.0-33.3); Red Blood Count 4.58 M/mcL (4.19-5.50); Red Cell Distribution Width 12.1 % (11.5-14.5)
[2017-01-17 03:36] LABS: Platelet Count 65 K/mcL (140-400)
[2017-01-17 03:38] LABS: Ionized Calcium 1.09 mmol/L (1.15-1.35)
[2017-01-17 03:48] LABS: Alanine Aminotransferase 91 Units/L (0-55); Albumin 2.7 g/dL (3.5-5.0); Albumin/Globulin Ratio 0.9 (1.1-2.2); Alkaline Phosphatase 101 Units/L (38-126); Aspartate Amino Transferase 198 Units/L (5-34); BUN/Creatinine Ratio 7 (6-26); Bilirubin,Total 0.9 mg/dL (0.2-1.2); Calcium 7.8 mg/dL (8.6-10.8); Carbon Dioxide 21 mEq/L (19-29); Chloride 93 mEq/L (98-109); Globulin 3.1 g/dL (2.4-3.5); Glucose 107 mg/dL (70-99); Osmolality,Calculated 255 (280-300); Potassium 4.2 mEq/L (3.5-4.5); Sodium 124 mEq/L (136-145); Total Protein 5.8 g/dL (6.0-8.3); eGFR For African Americans > 60 (> 60); eGFR For Non-African Americans > 60 (> 60)
[2017-01-17 03:51] LABS: Blood Urea Nitrogen 4 mg/dL (8-26)
[2017-01-17 03:54] LABS: Magnesium 2.9 mg/dL (1.6-2.6)
[2017-01-17] MEDS ORDERED: Ipratropium/Albuterol Neb 3 ML IH SCH (05:00)
[2017-01-17] MEDS: *HR* Heparin 5,000 UNIT/ML VIAL SQ SCH ×3 (05:06→21:25)
[2017-01-17] MEDS: diazePAM 10 MG/2 ML SYRINGE IVP SCH (05:07)
[2017-01-17 05:32] LABS: Basophils # 0.1 K/mcL (0.0-0.2); Lymphocytes # 0.1 K/mcL (0.6-4.6); Monocytes # 0.1 K/mcL (0.0-1.3); Neutrophils # 6.3 K/mcL (1.6-8.9)
[2017-01-17 05:33] LABS: Large Platelets Present (Not Present); Platelet Estimate Decreased (Normal)
[2017-01-17] MEDS ORDERED: Pantoprazole 40 MG VIAL IVP SCH (09:00)
--- NOTE | 2017-01-17 09:12 | Pulmonology Progress Note ---
Date of Encounter: 01/17/17 Time of Encounter: 09:10 Assessment and Plan (1) Hyponatremia Current Visit: Yes Status: Chronic 114 on admission. Plan to correct with less than 8 mEq every 24 hours. Received 1 L of normal saline in the emergency department. on 0.9% NS at 75 mL/ hr. 124 this am. Plan: Monitor every 8 hours. Nephro onboard Per their reccomendations we will d/c the fluid, and place the Pt on Sodium tablets. We will place Pt on a full diet. Protonix for GI prophylaxis. Patient on electrolyte protocol for electrolyte replacement. Patient on multivitamin. (2) Alcohol withdrawal Current Visit: Yes Status: Acute Will decrease patient's Valium and intervals. He is still getting 50 mg scheduled today but we have lengthened the time to every 8. Tomorrow he will get 10 mg scheduled every every 8. Patient still has breakthrough diameter available. Qualifiers: Complication of substance-induced condition: with delirium Qualified Code(s ): F10.231 - Alcohol dependence with withdrawal delirium (3) Alcohol withdrawal seizure Current Visit: Yes Status: Acute Plan: 15 mg Valium every 8 hours scheduled. 5 mg Valium when necessary every 3 hours. Qualifiers: Complication of substance-induced condition: with unspecified complication Qualified Code(s): F10.239 - Alcohol dependence with withdrawal, unspecified; R56.9 - Unspecified convulsions (4) DVT prophylaxis Current Visit: Yes Status: Acute Plan : Heparin (5) Tobacco abuse Current Visit: Yes Status: Chronic Plan: Nicotine patch Smoking cessation (6) Elevated LFTs Current Visit: Yes Status: Acute Right upper quadrant ultrasound: Showed fatty liver. Plan: We will continue to monitor daily Awaiting hepatitis panel results (7) Pneumonia Current Visit: Yes Status: Acute Right upper lobe pneumonia, patient does not appear in distress. Normal white count of 6.7. Neutrophils are increased to 16. Plan: Albuterol every 6hrs Levofloxacin 500 mg daily Patient maintain appropriate oxygen saturation on 2 L nasal cannula. Qualifiers: Pneumonia type: due to unspecified organism Laterality: right Lung location: upper lobe of lung Qualified Code(s): J18.1 - Lobar pneumonia, unspecified organism Subjective Principal diagnosis: Hyponatremia 2nd to alcohol intoxication Interval history: Patient is still confused. He is aware that he is and that is January and is unaware of the year. He does not appear in any distress while he is lying in bed however he does have tremors. Overnight patient developed mild respiratory distress. He was placed on levofloxacin and albuterol every 6. His chest x- ray was read as a possible right upper lobe pneumonia. We will continue to treat this as such. His white count is normal at 6.7 however his neutrophils have increased to 16. Sodium is increasing appropriately. It is 124 this morning. We will continue with normal saline replacement for this. Objective PUL Vital signs: Last Vital Signs Temp 98.3 F 01/17/17 07:40 Pulse 90 01/17/17 08:00 Resp 20 01/17/17 08:00 BP 129/86 01/17/17 08:00 Pulse Ox 98 01/17/17 08:00 General appearance: no acute distress, alert, other (Confused. Aware he is in the hospital and that it is January of the year. Unaware of the reason he is in hospital.) Eyes: nonicteric ENT: oropharynx moist Neck: supple, no lymphadenopathy, lymphadenopathy, no JVD Effort: normal Auscultation: bilateral: clear Cardiovascular: regular rate and rhythm Gastrointestinal: normoactive bowel sounds, soft, non-tender, non-distended Integumentary: normal Extremities: no cyanosis, no edema, no clubbing, pink and warm, pulses normal, no ischemia or petechiae Musculoskeletal: no deformities, ROM normal Gait: normal posture non-focal exam, pupils equal and round, motor strength normal and symmetric, other (Patient confused but alert.) mood appropriate, affect normal Results - Laboratory Findings CBC and BMP: 01/17/17 03:15 01/17/17 03:15 PT/INR, D-dimer PT 12.4 Seconds (9.4-12.1) H 01/16/17 10:30 Abnormal lab findings: Abnormal lab results Plt Count 65 K/mcL (140-400) L 01/17/17 03:15 Band Neutrophils % 16.0 % (0-4) H 01/17/17 03:15 Lymphocytes # 0.1 K/mcL (0.6-4.6) L 01/17/17 03:15 Platelet Estimate Decreased (Normal) L 01/17/17 03:15 Large Platelets Present (Not Present) A 01/17/17 03:15 PT 12.4 Seconds (9.4-12.1) H 01/16/17 10:30 Sodium 124 mEq/L (136-145) L 01/17/17 03:15 Chloride 93 mEq/L (98-109) L 01/17/17 03:15 BUN 4 mg/dL (8-26) L 01/17/17 03:15 Creatinine 0.61 mg/dL (0.72-1.25) L 01/17/17 03:15 Glucose 107 mg/dL (70-99) H 01/17/17 03:15 POC Glucose 102 (58-89) H 01/15/17 15:47 Serum Osmolality 246 mOsm/kg (280-300) L 01/15/17 21:30 Calculated Osmolality 255 (280-300) L 01/17/17 03:15 Uric Acid 2.5 mg/dL (3.5-7.2) L 01/15/17 17:39 Calcium 7.8 mg/dL (8.6-10.8) L 01/17/17 03:15 Ionized Calcium 1.09 mmol/L (1.15-1.35) L 01/17/17 03:15 Magnesium 2.9 mg/dL (1.6-2.6) H 01/17/17 03:15 AST 198 Units/L (5-34) H 01/17/17 03:15 ALT 91 Units/L (0-55) H 01/17/17 03:15 Serum Total Protein 5.8 g/dL (6.0-8.3) L 01/17/17 03:15 Albumin 2.7 g/dL (3.5-5.0) L 01/17/17 03:15 Albumin/Globulin Ratio 0.9 (1.1-2.2) L 01/17/17 03:15 Ur Specific [place] 1.007 (1.010-1.025) L 01/15/17 16:28 Urine Osmolality 144 mOsm/kg (300-1090) L 01/15/17 16:28 Acetaminophen 5.0 mcg/mL (10-30) L 01/15/17 10:21 Ethyl Alcohol 66 mg/dL (0-10) H 01/15/17 10:21 - Diagnostic Findings Additional studies: Head CT 01/15/17 11:14 IMPRESSION: No acute intracranial abnormality. D/ / Fredi Montesinos MD / Fredi Montesinos MD Interpreting Provider: Fredi Montesinos MD Liver Ultrasound 01/15/17 15:08 IMPRESSION: Fatty liver D/ / Julio C Curtis MD / Julio C Curtis MD Interpreting Provider: Julio C Curtis MD Chest X-Ray 01/16/17 06:59 IMPRESSION: Subtle right upper lobe base opacities which suggest developing pneumonia. D/ / 01/16/2017 07:32:58 Feder[facility] Interpreting Provider: Federico Burnham MD - Clinical Findings Intake & Output: Intake & Output 01/16/17 01/17/17 01/17/17 23:59 07:59 15:59 Intake Total 1174 / 1174 1104 / 1104 Output Total 500 / 500 100 / 100 Balance 674 / 674 1004 / 1004 Weight 78.653 kg Consult Discharge Plan - Plan Referrals: Varun Jimenez MD [Primary Care Provider] -
[2017-01-17] MEDS ORDERED: Ipratropium/Albuterol Neb 3 ML IH PRN (09:26)
[2017-01-17] MEDS: Nicotine 21 MG PATCH.TD24 TD SCH (09:36)
[2017-01-17] MEDS: Thiamine (B-1) 100 MG TABLET PO SCH (09:37)
[2017-01-17] MEDS: Folic Acid 1 MG TABLET PO SCH (09:37)
[2017-01-17] MEDS: Acetaminophen 325 MG TABLET PO PRN (11:52)
[2017-01-17 14:39] LABS: Hepatitis A Antibody IgM Nonreactive (Nonreactive); Hepatitis B Core IgM Nonreactive (Nonreactive); Hepatitis B Surface Antigen Nonreactive (Nonreactive); Hepatitis C Virus Antibody Nonreactive (Nonreactive)
[2017-01-17] MEDS ORDERED: diazePAM 10 MG/2 ML SYRINGE IVP SCH (16:00)
[2017-01-17] MEDS ORDERED: diazePAM 10 MG TABLET PO SCH (16:00)
[2017-01-17] MEDS: diazePAM 5 MG TABLET PO SCH ×2 (16:25→23:13)
[2017-01-18] MEDS: Levofloxacin 500 MG/100 ML 500 MG/100 ML BAG IVPB SCH (01:42)
[2017-01-18 05:51] LABS: Hemoglobin 13.2 g/dL (12.9-16.9)
[2017-01-18 05:53] LABS: Immature Platelets 5.7 % (1.1-6.1)
[2017-01-18 05:56] LABS: Basophils % 0.1 %; Eosinophils % 0.1 %; Hematocrit 37.5 % (37.5-50.1); Immature Granulocytes % 1.2 % (0-4); Lymphocytes # 0.7 K/mcL (0.6-4.6); Lymphocytes % 9.8 %; Mean Corpuscular HGB Conc 35.2 g/dL (31.6-35.5); Mean Corpuscular Hemoglobin 31.4 pg (28.0-33.3); Mean Corpuscular Volume 89.3 fL (83.0-100.0); Mean Platelet Volume 9.8 fL (9.4-12.4); Monocytes # 0.8 K/mcL (0.0-1.3); Red Cell Distribution Width 12.3 % (11.5-14.5); Segmented Neutrophils % 77.8 %
[2017-01-18] MEDS: *HR* Heparin 5,000 UNIT/ML VIAL SQ SCH ×3 (06:07→21:18)
[2017-01-18 06:10] LABS: Alanine Aminotransferase 62 Units/L (0-55); Albumin 2.5 g/dL (3.5-5.0); Albumin/Globulin Ratio 0.8 (1.1-2.2); Alkaline Phosphatase 87 Units/L (38-126); Aspartate Amino Transferase 116 Units/L (5-34); BUN/Creatinine Ratio 8 (6-26); Bilirubin,Total 0.8 mg/dL (0.2-1.2); Carbon Dioxide 25 mEq/L (19-29); Chloride 94 mEq/L (98-109); Globulin 3.1 g/dL (2.4-3.5); Glucose 100 mg/dL (70-99); Osmolality,Calculated 261 (280-300); Potassium 3.6 mEq/L (3.5-4.5); Sodium 127 mEq/L (136-145); Total Protein 5.6 g/dL (6.0-8.3); eGFR For African Americans > 60 (> 60); eGFR For Non-African Americans > 60 (> 60)
[2017-01-18 06:11] LABS: Blood Urea Nitrogen 5 mg/dL (8-26)
[2017-01-18 06:28] LABS: Neutrophils # 5.8 K/mcL (1.6-8.9); Platelet Count 71 K/mcL (140-400)
[2017-01-18 06:31] LABS: Platelet Estimate Decreased (Normal); Reactive Lymphocytes Present (Not Present)
[2017-01-18] MEDS ORDERED: diazePAM 10 MG/2 ML SYRINGE IVP SCH (08:00)
--- NOTE | 2017-01-18 08:29 | Pulmonology Progress Note ---
Date of Encounter: 01/18/17 Time of Encounter: 08:27 Assessment and Plan (1) Hyponatremia Current Visit: Yes Status: Chronic 114 on admission. Plan to correct with less than 8 mEq every 24 hours. Patient on a by mouth diet. 127 this am. Plan: Monitor daily Nephro onboard Per their reccomendations we will d/c the fluid, and place the Pt on Sodium tablets. We will place Pt on a full diet. Limiting free water. Protonix for GI prophylaxis. Patient on electrolyte protocol for electrolyte replacement. Patient on multivitamin. (2) Alcohol withdrawal Current Visit: Yes Status: Acute Patient still confused. Tremors have decreased significantly. Plan Will continue to decrease patient's Valium dose and intervals. 10 mg every 8 hours. 5 mg IV push when necessary for rescue Qualifiers: Complication of substance-induced condition: with delirium Qualified Code(s ): F10.231 - Alcohol dependence with withdrawal delirium (3) Alcohol withdrawal seizure Current Visit: Yes Status: Acute Plan: 10 mg Valium PO every 8 hours scheduled. 5 mg Valium IVP when necessary every 3 hours. Qualifiers: Complication of substance-induced condition: with unspecified complication Qualified Code(s): F10.239 - Alcohol dependence with withdrawal, unspecified; R56.9 - Unspecified convulsions (4) Pneumonia Current Visit: Yes Status: Acute Right upper lobe pneumonia, patient does not appear in distress. Normal lung sounds. Normal white count. Plan: DuoNeb nebs as needed Levofloxacin 500 mg daily Patient maintaining appropriate oxygen saturation on 2 L nasal cannula. Qualifiers: Pneumonia type: due to unspecified organism Laterality: right Lung location: upper lobe of lung Qualified Code(s): J18.1 - Lobar pneumonia, unspecified organism (5) DVT prophylaxis Current Visit: Yes Status: Acute Plan : Heparin (6) Tobacco abuse Current Visit: Yes Status: Chronic Plan: Nicotine patch Smoking cessation (7) Elevated LFTs Current Visit: Yes Status: Acute Decreasing appropriately daily. Right upper quadrant ultrasound: Showed fatty liver. Hepatitis panel was negative. Plan: We will continue to monitor daily Subjective Principal diagnosis: Hyponatremia 2nd to alcohol intoxication Interval history: Patient confusion is improving. However he is still somewhat confused. He is up at bedside in a chair today. He is able to maintain a by mouth diet. He does not appear in any distress. He does complain of minor aches to his upper legs. Lung sounds are clear and his respirations are unlabored. Were still treating for right upper lobe pneumonia. He is on Levaquin for day 2. He has when necessary albuterol. His sodium is 127 this morning. This is up from 124 yesterday. We will continue with a high sodium diet. Patient's tremors have decreased significantly. Will discuss discharging patient from ICU to the floor today. We have ordered PT /OT and a sitter for him for discharge from the ICU. Objective PUL Vital signs: Last Vital Signs Temp 97.3 F L 01/18/17 07:46 Pulse 104 01/18/17 08:00 Resp 24 01/18/17 08:00 BP 118/86 01/18/17 08:00 Pulse Ox 92 L 01/18/17 08:00 General appearance: no acute distress, alert, other (Confused) Eyes: nonicteric ENT: oropharynx moist Neck: supple Effort: normal Auscultation: bilateral: clear Cardiovascular: regular rate and rhythm Gastrointestinal: normoactive bowel sounds, soft, non-tender, non-distended Integumentary: normal Extremities: no cyanosis, no edema, no clubbing, pink and warm, pulses normal, no ischemia or petechiae Musculoskeletal: no deformities Gait: normal posture non-focal exam, pupils equal and round, motor strength normal and symmetric mood appropriate, affect normal Results - Laboratory Findings CBC and BMP: 01/18/17 05:06 01/18/17 04:30 PT/INR, D-dimer PT 12.4 Seconds (9.4-12.1) H 01/16/17 10:30 Abnormal lab findings: Abnormal lab results Plt Count 71 K/mcL (140-400) L 01/18/17 05:06 Band Neutrophils % 16.0 % (0-4) H 01/17/17 03:15 Reactive Lymphocytes Present (Not Present) A 01/18/17 05:06 Platelet Estimate Decreased (Normal) L 01/18/17 05:06 Large Platelets Present (Not Present) A 01/17/17 03:15 PT 12.4 Seconds (9.4-12.1) H 01/16/17 10:30 Sodium 127 mEq/L (136-145) L 01/18/17 04:30 Chloride 94 mEq/L (98-109) L 01/18/17 04:30 BUN 5 mg/dL (8-26) L 01/18/17 04:30 Creatinine 0.60 mg/dL (0.72-1.25) L 01/18/17 04:30 Glucose 100 mg/dL (70-99) H 01/18/17 04:30 POC Glucose 102 (58-89) H 01/15/17 15:47 Serum Osmolality 246 mOsm/kg (280-300) L 01/15/17 21:30 Calculated Osmolality 261 (280-300) L 01/18/17 04:30 Uric Acid 2.5 mg/dL (3.5-7.2) L 01/15/17 17:39 Calcium 8.0 mg/dL (8.6-10.8) L 01/18/17 04:30 Ionized Calcium 1.09 mmol/L (1.15-1.35) L 01/17/17 03:15 Magnesium 2.9 mg/dL (1.6-2.6) H 01/17/17 03:15 AST 116 Units/L (5-34) H 01/18/17 04:30 ALT 62 Units/L (0-55) H 01/18/17 04:30 Serum Total Protein 5.6 g/dL (6.0-8.3) L 01/18/17 04:30 Albumin 2.5 g/dL (3.5-5.0) L 01/18/17 04:30 Albumin/Globulin Ratio 0.8 (1.1-2.2) L 01/18/17 04:30 Ur Specific [place] 1.007 (1.010-1.025) L 01/15/17 16:28 Urine Osmolality 144 mOsm/kg (300-1090) L 01/15/17 16:28 Acetaminophen 5.0 mcg/mL (10-30) L 01/15/17 10:21 Ethyl Alcohol 66 mg/dL (0-10) H 01/15/17 10:21 - Clinical Findings Intake & Output: Intake & Output 01/17/17 01/18/17 01/18/17 23:59 07:59 15:59 Output Total 500 / 500 0 / 0 Balance -500 / -500 0 / 0 Weight 76.657 kg - VTE Documentation of Mechanical Device: Intermittent pneumatic compression device Consult Discharge Plan - Plan Referrals: Varun Jimenez MD [Primary Care Provider] -
[2017-01-18] MEDS: Nicotine 21 MG PATCH.TD24 TD SCH (09:29)
[2017-01-18] MEDS: Thiamine (B-1) 100 MG TABLET PO SCH (09:29)
[2017-01-18] MEDS: Folic Acid 1 MG TABLET PO SCH (09:30)
[2017-01-18] MEDS: diazePAM 10 MG TABLET PO SCH ×3 (09:30→23:40)
[2017-01-18] MEDS: Potassium Chloride 40 MEQ/200 ML BAG IVPB PRN ×2 (10:32→17:57)
[2017-01-18] MEDS ORDERED: diazePAM 10 MG TABLET PO SCH (16:00)
[2017-01-18 16:59] LABS: Ionized Calcium 1.12 mmol/L (1.15-1.35)
[2017-01-18 17:08] LABS: BUN/Creatinine Ratio 7 (6-26); Calcium 7.9 mg/dL (8.6-10.8); Carbon Dioxide 25 mEq/L (19-29); Chloride 95 mEq/L (98-109); Glucose 97 mg/dL (70-99); Magnesium 1.6 mg/dL (1.6-2.6); Osmolality,Calculated 259 (280-300); Potassium 3.7 mEq/L (3.5-4.5); Sodium 126 mEq/L (136-145); eGFR For African Americans > 60 (> 60); eGFR For Non-African Americans > 60 (> 60)
[2017-01-18 17:44] LABS: Blood Urea Nitrogen 4 mg/dL (8-26); Phosphorous 1.4 mg/dL (2.3-4.7)
--- NOTE | 2017-01-18 17:52 | Nephrology Progress Note ---
Date of Encounter: 01/18/17 Time of Encounter: 11:00 - Assessment and Plan (1) Hyponatremia Current Visit: Yes Status: Chronic Sodium improved at 127. Continue salt tabs 1g bid as started yesterday Continue liberalized sodium in diet (2) Alcohol withdrawal Current Visit: Yes Status: Acute per primary team Qualifiers: Complication of substance-induced condition: with delirium Qualified Code(s ): F10.231 - Alcohol dependence with withdrawal delirium (3) Hypokalemia Current Visit: Yes Status: Acute Resolved Subjective Principal diagnosis: Hyponatremia 2nd to alcohol intoxication Interval history: Pt seen and examined sitting up in chair with girlfriend at bedside eating. His tremors has significantly subsided and he feels better Objective - Vital Signs Vital signs: Vital Signs Temp Pulse Resp BP Pulse Ox 01/18/17 16:27 100.7 F H 01/18/17 15:00 90 18 88 L 01/18/17 13:00 90 16 01/18/17 12:13 99.0 F 01/18/17 11:00 97 20 118/79 98 01/18/17 10:00 97 20 117/100 98 01/18/17 09:00 88 20 116/81 99 01/18/17 08:00 104 24 118/86 92 L 01/18/17 07:46 97.3 F L 01/18/17 07:00 88 18 116/78 94 L 01/18/17 06:00 88 16 114/82 100 01/18/17 05:00 96 16 113/71 95 01/18/17 04:00 98.5 F 95 16 113/77 95 01/18/17 03:25 92 01/18/17 03:00 92 16 114/75 95 01/18/17 02:00 102 18 113/79 95 01/18/17 01:00 92 16 104/72 96 01/18/17 00:00 99 18 127/84 95 01/17/17 23:48 99.4 F 01/17/17 23:03 98 01/17/17 23:00 98 20 118/82 95 01/17/17 22:00 96 18 126/88 92 L 01/17/17 21:00 95 20 144/76 97 01/17/17 20:40 99.6 F 01/17/17 20:00 96 20 109/78 95 01/17/17 19:37 98 01/17/17 19:00 96 20 128/84 93 L 01/17/17 18:00 94 18 130/83 94 L Intake and Output 01/18/17 01/18/17 01/18/17 07:59 15:59 23:59 Intake Total 100 / 100 560 / 560 Output Total 0 / 0 275 / 275 Balance 100 / 100 285 / 285 Intake: IV Fluids 100 / 100 200 / 200 Levaquin 500mg/100mL 500 100 / 100 mg In 100 ml @ 100 mls/hr IVPB Q24H [facility] Rx#: [id number] Potassium Chloride 20 mEq 200 / 200 /100 mL 40 meq In 200 ml @ 100 mls/hr IVPB Q1H PRN Rx#:[id number] Oral 360 / 360 Output: Urine 0 / 0 275 / 275 Other: Meal Lunch Percent of Meal Consumed 40% Stool Size Small Stool Consistency loose Stool Color Brown # Bowel Movements 1 - General Appearance General appearance: Present: chronically ill (NAD) EENT: Present: ATNC, mucous membranes moist Neck: Present: no JVD, supple Respiratory: Present: clear Cardiology: Present: no edema, normal S1, normal S2 Gastrointestinal: Present: no tenderness, no guarding Integumentary: Present: warm and dry Neurologic: Present: alert and oriented x3 Musculoskeletal: Present: no deformities Psychiatric: Present: mood/affect appropriate - Lab 01/18/17 05:06 01/18/17 16:20 Most recent lab results Calcium 7.9 mg/dL (8.6-10.8) L 01/18/17 16:20 Phosphorus 1.4 mg/dL (2.3-4.7) L D 01/18/17 16:20 Magnesium 1.6 mg/dL (1.6-2.6) 01/18/17 16:20 Urine Creatinine 34 mg/dL 01/15/17 16:28 Urine Sodium < 20.0 mEq/L 01/15/17 16:28 - VTE Documentation of Mechanical Device: Intermittent pneumatic compression device Consult Discharge Plan - Plan Referrals: Varun Jimenez MD [Primary Care Provider] -
[2017-01-18] MEDS: Acetaminophen 325 MG TABLET PO PRN (17:56)
[2017-01-18] MEDS: Magnesium Sulfate 2 GM in D5% in Water 100 ML IVPB PRN (18:33)
[2017-01-18] MEDS: Potassium Phosphate 44 MEQ in 0.9 % Sodium Chloride 250 ML IVPB PRN (18:33)
[2017-01-19] MEDS: Levofloxacin 500 MG/100 ML 500 MG/100 ML BAG IVPB SCH (03:28)
[2017-01-19 03:55] LABS: Basophils % 0.3 %; Immature Granulocytes % 1.6 % (0-4); Red Cell Distribution Width 12.6 % (11.5-14.5)
[2017-01-19 03:56] LABS: Hematocrit 36.1 % (37.5-50.1); Hemoglobin 12.5 g/dL (12.9-16.9); Immature Platelets 4.1 % (1.1-6.1); Lymphocytes % 14.4 %; Mean Corpuscular HGB Conc 34.6 g/dL (31.6-35.5); Mean Corpuscular Hemoglobin 31.3 pg (28.0-33.3); Mean Corpuscular Volume 90.5 fL (83.0-100.0); Red Blood Count 3.99 M/mcL (4.19-5.50); Segmented Neutrophils % 66.6 %
[2017-01-19 03:57] LABS: Eosinophils # 0.1 K/mcL (0.0-0.6); Eosinophils % 1.6 %; Lymphocytes # 0.8 K/mcL (0.6-4.6); Monocytes # 0.9 K/mcL (0.0-1.3); Monocytes % 15.5 %
[2017-01-19 04:08] LABS: Alanine Aminotransferase 46 Units/L (0-55); Albumin 2.2 g/dL (3.5-5.0); Albumin/Globulin Ratio 0.7 (1.1-2.2); Alkaline Phosphatase 94 Units/L (38-126); Aspartate Amino Transferase 80 Units/L (5-34); BUN/Creatinine Ratio 7 (6-26); Bilirubin,Total 0.7 mg/dL (0.2-1.2); Calcium 7.8 mg/dL (8.6-10.8); Carbon Dioxide 25 mEq/L (19-29); Chloride 99 mEq/L (98-109); Globulin 3.2 g/dL (2.4-3.5); Glucose 96 mg/dL (70-99); Osmolality,Calculated 271 (280-300); Potassium 4.1 mEq/L (3.5-4.5); Sodium 132 mEq/L (136-145); Total Protein 5.4 g/dL (6.0-8.3); eGFR For African Americans > 60 (> 60); eGFR For Non-African Americans > 60 (> 60)
[2017-01-19 04:09] LABS: Blood Urea Nitrogen 4 mg/dL (8-26)
[2017-01-19 04:16] LABS: Neutrophils # 3.9 K/mcL (1.6-8.9); Platelet Count 93 K/mcL (140-400)
[2017-01-19 04:22] LABS: Ionized Calcium 1.12 mmol/L (1.15-1.35)
[2017-01-19 04:29] LABS: Magnesium 1.8 mg/dL (1.6-2.6)
[2017-01-19 04:30] LABS: Phosphorous 4.2 mg/dL (2.3-4.7)
[2017-01-19 05:11] LABS: Platelet Estimate Decreased (Normal)
[2017-01-19] MEDS: *HR* Heparin 5,000 UNIT/ML VIAL SQ SCH ×3 (05:49→21:09)
[2017-01-19] MEDS: Magnesium Sulfate 2 GM in D5% in Water 100 ML IVPB PRN (05:49)
--- NOTE | 2017-01-19 08:42 | Pulmonology Progress Note ---
Date of Encounter: 01/19/17 Time of Encounter: 08:42 Assessment and Plan (1) Hyponatremia Current Visit: Yes Status: Chronic 114 on admission. Plan to correct with less than 8 mEq every 24 hours. Patient on a by mouth diet. 132 this am. Plan: Monitor daily Nephro onboard Per their reccomendations we will d/c the fluid, and place the Pt on Sodium tablets. We will place Pt on a full diet. Limiting free water. Protonix for GI prophylaxis. Patient on electrolyte protocol for electrolyte replacement. Patient on multivitamin. (2) Alcohol withdrawal Current Visit: Yes Status: Acute Patient alert and oriented to person place and time at this time. Tremors have decreased significantly. Plan Will continue to decrease patient's Valium dose and intervals. Qualifiers: Complication of substance-induced condition: with delirium Qualified Code(s ): F10.231 - Alcohol dependence with withdrawal delirium (3) Alcohol withdrawal seizure Current Visit: Yes Status: Acute Plan: Continue to decrease Valium daily. Qualifiers: Complication of substance-induced condition: with unspecified complication Qualified Code(s): F10.239 - Alcohol dependence with withdrawal, unspecified; R56.9 - Unspecified convulsions (4) Pneumonia Current Visit: Yes Status: Acute Right upper lobe pneumonia, patient does not appear in distress. Normal lung sounds. Normal white count. Plan: DuoNeb nebs as needed Levofloxacin 500 mg daily Patient maintaining appropriate oxygen saturation on 2 L nasal cannula. Qualifiers: Pneumonia type: due to unspecified organism Laterality: right Lung location: upper lobe of lung Qualified Code(s): J18.1 - Lobar pneumonia, unspecified organism (5) DVT prophylaxis Current Visit: Yes Status: Acute Plan : Heparin (6) Tobacco abuse Current Visit: Yes Status: Chronic Plan: Nicotine patch Smoking cessation (7) Elevated LFTs Current Visit: Yes Status: Acute Decreasing appropriately daily. Right upper quadrant ultrasound: Showed fatty liver. Hepatitis panel was negative. Plan: We will continue to monitor daily Subjective Principal diagnosis: Hyponatremia 2nd to alcohol intoxication Interval history: Patient alert and oriented sitting in his bedside chair at this time. He states that he is unaware of why he was brought to the emergency department. I discussed this with him. He does know where he is what month it is and what year it is. His tremors have improved significantly. He only has it at rest tremor that is mild. He has no complaints and appears in no distress. His lung sounds are clear and unlabored. He has been tolerating a by mouth diet very well. We will continue to limit his free water as his sodium is increasing appropriately. He is on day 3 of Levaquin for right upper lobe pneumonia. He is still spiking fevers are being treated with Tylenol. Sign out was given to the hospitalist yesterday. We are awaiting bed placement on the floor. Objective PUL Vital signs: Last Vital Signs Temp 98.4 F 01/19/17 07:41 Pulse 79 01/19/17 03:53 Resp 20 01/19/17 03:53 BP 122/85 01/19/17 03:53 Pulse Ox 94 L 01/19/17 03:53 General appearance: no acute distress, alert Eyes: nonicteric ENT: oropharynx moist Neck: supple, no lymphadenopathy Effort: normal Auscultation: bilateral: clear Cardiovascular: regular rate and rhythm Gastrointestinal: normoactive bowel sounds Integumentary: normal Extremities: no cyanosis, no edema, no clubbing, pink and warm, pulses normal Musculoskeletal: no deformities Gait: normal posture normal mental status, non-focal exam, pupils equal and round mood appropriate, affect normal Results - Laboratory Findings CBC and BMP: 01/19/17 03:30 01/19/17 03:30 PT/INR, D-dimer PT 12.4 Seconds (9.4-12.1) H 01/16/17 10:30 Abnormal lab findings: Abnormal lab results RBC 3.99 M/mcL (4.19-5.50) L 01/19/17 03:30 Hgb 12.5 g/dL (12.9-16.9) L 01/19/17 03:30 Hct 36.1 % (37.5-50.1) L 01/19/17 03:30 Plt Count 93 K/mcL (140-400) L 01/19/17 03:30 MPV 9.0 fL (9.4-12.4) L 01/19/17 03:30 Band Neutrophils % 16.0 % (0-4) H 01/17/17 03:15 Reactive Lymphocytes Present (Not Present) A 01/18/17 05:06 Platelet Estimate Decreased (Normal) L 01/19/17 03:30 Large Platelets Present (Not Present) A 01/17/17 03:15 PT 12.4 Seconds (9.4-12.1) H 01/16/17 10:30 Sodium 132 mEq/L (136-145) L 01/19/17 03:30 BUN 4 mg/dL (8-26) L 01/19/17 03:30 Creatinine 0.54 mg/dL (0.72-1.25) L 01/19/17 03:30 POC Glucose 102 (58-89) H 01/15/17 15:47 Serum Osmolality 246 mOsm/kg (280-300) L 01/15/17 21:30 Calculated Osmolality 271 (280-300) L 01/19/17 03:30 Uric Acid 2.5 mg/dL (3.5-7.2) L 01/15/17 17:39 Calcium 7.8 mg/dL (8.6-10.8) L 01/19/17 03:30 Ionized Calcium 1.12 mmol/L (1.15-1.35) L 01/19/17 03:55 AST 80 Units/L (5-34) H 01/19/17 03:30 Serum Total Protein 5.4 g/dL (6.0-8.3) L 01/19/17 03:30 Albumin 2.2 g/dL (3.5-5.0) L 01/19/17 03:30 Albumin/Globulin Ratio 0.7 (1.1-2.2) L 01/19/17 03:30 Ur Specific [place] 1.007 (1.010-1.025) L 01/15/17 16:28 Urine Osmolality 144 mOsm/kg (300-1090) L 01/15/17 16:28 Acetaminophen 5.0 mcg/mL (10-30) L 01/15/17 10:21 Ethyl Alcohol 66 mg/dL (0-10) H 01/15/17 10:21 - Clinical Findings Intake & Output: Intake & Output 01/18/17 01/19/17 01/19/17 23:59 07:59 15:59 Intake Total 304 / 304 704 / 704 Balance 304 / 304 704 / 704 Weight 81 kg - VTE Documentation of Mechanical Device: Intermittent pneumatic compression device Consult Discharge Plan - Plan Referrals: Varun Jiemnez MD [Primary Care Provider] -
[2017-01-19] MEDS: Thiamine (B-1) 100 MG TABLET PO SCH (08:51)
[2017-01-19] MEDS: Nicotine 21 MG PATCH.TD24 TD SCH (08:51)
[2017-01-19] MEDS: Folic Acid 1 MG TABLET PO SCH (08:51)
[2017-01-19] MEDS ORDERED: diazePAM 10 MG TABLET PO SCH ×2 (09:00→21:00)
--- NOTE | 2017-01-19 11:09 | Nephrology Progress Note ---
Date of Encounter: 01/19/17 Time of Encounter: 09:00 - Assessment and Plan (1) Hyponatremia Current Visit: Yes Status: Chronic Acute on chronic hyponatremia. He has slowly and safely corrected to his baseline PNa of the low 130s. Agree with NaCl 1gm po bid. Will sign-off, but I do recommend outpt nephrology follow up in about 3-6 weeks after discharge. Thank you. Subjective Principal diagnosis: Hyponatremia 2nd to alcohol intoxication Interval history: Pt was s/e earlier today. He did not affirm N/V/D at present. He voiced having a hx of beer drinking. He did not report other major complaints. Objective - Vital Signs Vital signs: Vital Signs Temp Pulse Resp BP Pulse Ox 01/19/17 08:00 89 18 112/92 97 01/19/17 07:41 98.4 F 01/19/17 03:53 97.6 F 79 20 122/85 94 L 01/19/17 03:00 87 01/19/17 00:00 97.6 F 87 16 109/87 97 01/18/17 19:00 99.9 F H 89 14 109/71 92 L 01/18/17 18:00 91 20 119/84 96 01/18/17 16:27 100.7 F H 01/18/17 15:00 90 18 112/76 88 L 01/18/17 13:00 90 16 01/18/17 12:13 99.0 F Intake and Output 01/18/17 01/19/17 01/19/17 23:59 07:59 15:59 Intake Total 304 / 304 704 / 704 120 / 120 Output Total 700 / 700 Balance 304 / 304 704 / 704 -580 / -580 Intake: IV Fluids 304 / 304 464 / 464 Levaquin 500mg/100mL 500 100 / 100 mg In 100 ml @ 100 mls/hr IVPB Q24H [facility] Rx#: [id number] Magnesium Sulfate 2 GM In 104 / 104 104 / 104 Dextrose 5% 100 ML @ 50 mls/hr IVPB Q6H PRN Rx#: [id number] Potassium Chloride 20 mEq 200 / 200 /100 mL 40 meq In 200 ml @ 100 mls/hr IVPB Q1H PRN Rx#:[id number] Potassium Phosphate 44 260 / 260 MEQ In 0.9 % Sodium Chloride 250 ML @ 40 mls/ hr IVPB Q10H PRN Rx#: [id number] Oral 240 / 240 120 / 120 Output: Urine 700 / 700 Other: Stool Size Moderate Stool Consistency liquid soft Stool Color Brown Green # Voids 1 # Bowel Movements 1 Weight 81 kg Patient Weight 01/19/17 23:59 Weight 81 kg - General Appearance General appearance: Present: cachectic, fatigue EENT: Present: ATNC, mucous membranes moist Neck: Present: supple Respiratory: Present: clear Cardiology: Present: no edema, regular rate, normal S1, normal S2 Gastrointestinal: Present: normoactive bowel sounds, no guarding Integumentary: Present: warm and dry Neurologic: Present: no focal deficit (but slow response) Musculoskeletal: Present: no deformities, no erythema Psychiatric: Present: cooperative - Lab 01/19/17 03:30 01/19/17 03:30 Most recent lab results Calcium 7.8 mg/dL (8.6-10.8) L 01/19/17 03:30 Phosphorus 4.2 mg/dL (2.3-4.7) D 01/19/17 03:55 Magnesium 1.8 mg/dL (1.6-2.6) 01/19/17 03:55 Urine Creatinine 34 mg/dL 01/15/17 16:28 Urine Sodium < 20.0 mEq/L 01/15/17 16:28 - VTE Documentation of Mechanical Device: Intermittent pneumatic compression device Consult Discharge Plan - Plan Referrals: Varun Jimenez MD [Primary Care Provider] -
[2017-01-19] MEDS ORDERED: *HR* Promethazine 25 MG/ML VIAL IVP PRN (11:28)
[2017-01-19] MEDS ORDERED: Calcium Gluconate 1,000 MG in D5% in Water 100 ML IVPB PRN (11:28)
[2017-01-19] MEDS ORDERED: Ipratropium/Albuterol Neb 3 ML IH PRN (11:28)
[2017-01-19] MEDS ORDERED: diazePAM 10 MG/2 ML SYRINGE IVP PRN (11:28)
[2017-01-19] MEDS ORDERED: Magnesium Sulfate 2 GM in D5% in Water 100 ML IVPB PRN (11:28)
[2017-01-19] MEDS ORDERED: Acetaminophen 325 MG TABLET PO PRN (11:28)
[2017-01-19] MEDS ORDERED: Potassium Chloride 40 MEQ/200 ML BAG IVPB PRN (11:28)
[2017-01-19] MEDS ORDERED: Potassium Phosphate 44 MEQ in 0.9 % Sodium Chloride 250 ML IVPB PRN (11:28)
[2017-01-20] MEDS: Levofloxacin 500 MG/100 ML 500 MG/100 ML BAG IVPB SCH (02:26)
[2017-01-20] MEDS: *HR* Heparin 5,000 UNIT/ML VIAL SQ SCH ×3 (05:29→23:23)
[2017-01-20] MEDS ORDERED: diazePAM 5 MG TABLET PO SCH (09:00)
[2017-01-20] MEDS: Thiamine (B-1) 100 MG TABLET PO SCH (09:14)
[2017-01-20] MEDS: Nicotine 21 MG PATCH.TD24 TD SCH (09:15)
[2017-01-20] MEDS: Folic Acid 1 MG TABLET PO SCH (09:15)
[2017-01-20] MEDS: diazePAM 5 MG TABLET PO SCH ×3 (09:15→20:56)
--- NOTE | 2017-01-20 17:35 | Internal Med Progress Note ---
Date of Encounter: 01/20/17 Time of Encounter: 14:30 - Assessment and plan (1) Acute encephalopathy Current Visit: Yes Status: Acute Assessment and plan: metabolic. multifactorial: hyponatremia, seizure, infection. (2) Hyponatremia Current Visit: No Status: Chronic Assessment and plan: Patient presented to our ED complaining of nausea, vomiting and no oral intake. Sodium was 114. He was admitted to our ICU and his sodium has corrected nicely to 132. continue sodium tablets 1 gm bid. discontinue fluid restriction. (3) Alcohol withdrawal Current Visit: Yes Status: Acute Assessment and plan: heavy alcohol drinker, he drinks up to 30 beers per day. continue fixed diazepam regimen taper and prn. still having tremors and imbalance. close monitor. Qualifiers: Complication of substance-induced condition: with delirium Qualified Code(s ): F10.231 - Alcohol dependence with withdrawal delirium (4) Seizure Current Visit: Yes Status: Resolved Assessment and plan: Patient had seizure in the ER on admission. Sodium was 114. seizure secondary to hyponatremia and alcohol withdrawal (not able to drink due to nausea and vomiting). (5) Pneumonia Current Visit: Yes Status: Acute Assessment and plan: CXR showed right lower lobe pna improving slowly. continue levaquin for total of 5 days. Qualifiers: Pneumonia type: due to unspecified organism Laterality: right Lung location: upper lobe of lung Qualified Code(s): J18.1 - Lobar pneumonia, unspecified organism (6) Elevated LFTs Current Visit: Yes Status: Acute Assessment and plan: secondary to alcohol abuse. LFTs are trending down. (7) Tobacco abuse Current Visit: Yes Status: Chronic Assessment and plan: counseled to quit. nicotine patch - Subjective Interval history: patient is alert but confused. he still complains of tremors and difficulty ambulating. - Constitutional Vitals: Temp Pulse Resp BP Pulse Ox 98.1 F 93 18 143/90 93 L 01/20/17 15:55 01/20/17 15:55 01/20/17 15:55 01/20/17 15:55 01/20/17 15:55 General appearance: Present: cooperative, A&O X 2, pleasant, no acute distress - Eye Eye exam: Present: PERRL, sclera anicteric - Neck Neck exam general surgery: Present: supple, trachea midline. Absent: lymphadenopathy - Respiratory Respiratory exam: Present: CTAB - Cardiovascular Cardiovascular exam: Present: RRR - GI/Abdominal GI/Abdominal exam: Present: normal bowel sounds, soft. Absent: distended, tenderness - Extremities Exam Extremities exam: Absent: pedal edema - Back Exam Back exam: Absent: CVA tenderness (L), CVA tenderness (R) - Neurological Exam Neurological exam: Present: alert, strengths equal and symetr throughout. Absent: facial droop, speech deficit - Skin Skin exam: Present: dry. Absent: rash Internal Medicine: Result - Labs CBC & Chem 7: 01/19/17 03:30 01/19/17 03:30 - ABG Interpretation ABG results: PT/INR, D-dimer PT 12.4 Seconds (9.4-12.1) H 01/16/17 10:30 - VTE Documentation of Mechanical Device: Intermittent pneumatic compression device Consult Discharge Plan - Plan Referrals: Varun Jimenez MD [Primary Care Provider] -
[2017-01-21] MEDS: Levofloxacin 500 MG/100 ML 500 MG/100 ML BAG IVPB SCH (04:01)
[2017-01-21] MEDS: *HR* Heparin 5,000 UNIT/ML VIAL SQ SCH ×3 (05:32→23:25)
[2017-01-21 06:50] LABS: BUN/Creatinine Ratio 7 (6-26); Calcium 8.1 mg/dL (8.6-10.8); Carbon Dioxide 27 mEq/L (19-29); Chloride 99 mEq/L (98-109); Glucose 100 mg/dL (70-99); Magnesium 1.4 mg/dL (1.6-2.6); Osmolality,Calculated 273 (280-300); Potassium 3.5 mEq/L (3.5-4.5); Sodium 133 mEq/L (136-145); eGFR For African Americans > 60 (> 60); eGFR For Non-African Americans > 60 (> 60)
[2017-01-21 06:52] LABS: Blood Urea Nitrogen 4 mg/dL (8-26)
[2017-01-21 08:09] LABS: Hemoglobin 12.6 g/dL (12.9-16.9); Mean Corpuscular HGB Conc 34.1 g/dL (31.6-35.5); Mean Corpuscular Volume 91.1 fL (83.0-100.0); Mean Platelet Volume 8.8 fL (9.4-12.4); Platelet Count 196 K/mcL (140-400); Red Blood Count 4.06 M/mcL (4.19-5.50); Red Cell Distribution Width 12.4 % (11.5-14.5)
[2017-01-21] MEDS: diazePAM 5 MG TABLET PO SCH ×2 (08:12→19:45)
[2017-01-21] MEDS: Folic Acid 1 MG TABLET PO SCH (08:12)
[2017-01-21] MEDS: Thiamine (B-1) 100 MG TABLET PO SCH (08:12)
[2017-01-21] MEDS: Nicotine 21 MG PATCH.TD24 TD SCH (08:12)
[2017-01-21] MEDS ORDERED: diazePAM 5 MG TABLET PO SCH (09:00)
[2017-01-21 09:08] LABS: Eosinophils # 0.2 K/mcL (0.0-0.6); Lymphocytes # 1.3 K/mcL (0.6-4.6); Neutrophils # 3.3 K/mcL (1.6-8.9); Platelet Estimate Normal (Normal); Reactive Lymphocytes Present (Not Present)
[2017-01-21] MEDS ORDERED: Magnesium Sulfate 1 GM in D5% in Water 100 ML IVPB ONE (12:31)
--- NOTE | 2017-01-21 17:54 | Internal Med Progress Note ---
Date of Encounter: 01/21/17 Time of Encounter: 17:30 - Assessment and plan (1) Alcohol withdrawal Current Visit: Yes Status: Acute Assessment and plan: heavy alcohol drinker, he drinks up to 30 beers per day. continue fixed diazepam regimen taper and prn. still having tremors and imbalance. close monitor. Awaiting social services coordinator input about discharged to rehabilitation facility. Qualifiers: Complication of substance-induced condition: with delirium Qualified Code(s ): F10.231 - Alcohol dependence with withdrawal delirium (2) Acute encephalopathy Current Visit: Yes Status: Acute Assessment and plan: metabolic. multifactorial: hyponatremia, seizure, infection. Treating underlying etiology (3) Hyponatremia Current Visit: No Status: Chronic Assessment and plan: Patient presented to our ED complaining of nausea, vomiting and no oral intake. Sodium was 114. He was admitted to our ICU and his sodium has corrected nicely to 133. continue sodium tablets 1 gm bid. (4) Seizure Current Visit: Yes Status: Resolved Assessment and plan: Patient had seizure in the ER on admission. Sodium was 114. seizure secondary to hyponatremia and alcohol withdrawal (not able to drink due to nausea and vomiting). (5) Pneumonia Current Visit: Yes Status: Acute Assessment and plan: CXR showed right lower lobe pna improving slowly. continue levaquin for total of 5 days. Qualifiers: Pneumonia type: due to unspecified organism Laterality: right Lung location: upper lobe of lung Qualified Code(s): J18.1 - Lobar pneumonia, unspecified organism (6) Elevated LFTs Current Visit: Yes Status: Acute Assessment and plan: secondary to alcohol abuse. LFTs are trending down. (7) Tobacco abuse Current Visit: Yes Status: Chronic Assessment and plan: counseled to quit. nicotine patch - Subjective Interval history: patient is alert but confused. He reports persistent tremors and imbalance. - Constitutional Vitals: Temp Pulse Resp BP Pulse Ox 99.0 F 88 16 145/87 93 L 01/21/17 15:12 01/21/17 15:12 01/21/17 15:12 01/21/17 15:12 01/21/17 15:12 General appearance: Present: cooperative, A&O X 2, pleasant, no acute distress - Eye Eye exam: Present: PERRL, sclera anicteric - Neck Neck exam general surgery: Present: supple, trachea midline. Absent: lymphadenopathy - Respiratory Respiratory exam: Present: decreased breath sounds (At the right lung base) - Cardiovascular Cardiovascular exam: Present: RRR - GI/Abdominal GI/Abdominal exam: Present: normal bowel sounds, soft. Absent: distended, tenderness - Extremities Exam Extremities exam: Absent: pedal edema - Back Exam Back exam: Absent: CVA tenderness (L), CVA tenderness (R) - Neurological Exam Neurological exam: Present: alert, oriented X3, no focal deficits, strengths equal and symetr throughout. Absent: facial droop, speech deficit Additional comments: Tremors. - Skin Skin exam: Absent: rash Internal Medicine: Result - Labs CBC & Chem 7: 01/21/17 07:11 01/21/17 06:20 Labs: Short CBC 01/21/17 Range/Units 07:11 WBC 5.7 (4.3-11.1) K/mcL Hgb 12.6 L (12.9-16.9) g/dL Hct 37.0 L (37.5-50.1) % Plt Count 196 D (140-400) K/mcL Neutrophils # 3.3 (1.6-8.9) K/mcL BMP 01/21/17 06:20 Sodium 133 L Potassium 3.5 Chloride 99 Carbon Dioxide 27 BUN 4 L Creatinine 0.58 L Glucose 100 H Calcium 8.1 L - ABG Interpretation ABG results: PT/INR, D-dimer PT 12.4 Seconds (9.4-12.1) H 01/16/17 10:30 - VTE Documentation of Mechanical Device: Intermittent pneumatic compression device Consult Discharge Plan - Plan Referrals: Varun Jimenez MD [Primary Care Provider] -
[2017-01-22] MEDS: Levofloxacin 500 MG/100 ML 500 MG/100 ML BAG IVPB SCH (02:06)
[2017-01-22] MEDS: *HR* Heparin 5,000 UNIT/ML VIAL SQ SCH ×3 (05:16→22:29)
[2017-01-22 05:40] LABS: BUN/Creatinine Ratio 7 (6-26); Calcium 8.1 mg/dL (8.6-10.8); Carbon Dioxide 25 mEq/L (19-29); Chloride 99 mEq/L (98-109); Glucose 121 mg/dL (70-99); Magnesium 1.4 mg/dL (1.6-2.6); Osmolality,Calculated 274 (280-300); Potassium 3.4 mEq/L (3.5-4.5); Sodium 133 mEq/L (136-145); eGFR For African Americans > 60 (> 60); eGFR For Non-African Americans > 60 (> 60)
[2017-01-22 05:41] LABS: Blood Urea Nitrogen 4 mg/dL (8-26)
[2017-01-22] MEDS ORDERED: Magnesium Sulfate 2 GM in D5% in Water 100 ML IVPB ONE (08:02)
[2017-01-22] MEDS ORDERED: diazePAM 2 MG TABLET PO SCH (09:00)
[2017-01-22] MEDS: Nicotine 21 MG PATCH.TD24 TD SCH (09:03)
[2017-01-22] MEDS: Folic Acid 1 MG TABLET PO SCH (09:05)
[2017-01-22] MEDS: diazePAM 2 MG TABLET PO SCH ×2 (09:05→20:27)
[2017-01-22] MEDS: Thiamine (B-1) 100 MG TABLET PO SCH (09:05)
--- NOTE | 2017-01-22 16:51 | Internal Med Progress Note ---
Date of Encounter: 01/22/17 Time of Encounter: 15:00 - Assessment and plan (1) Acute respiratory failure with hypoxia Current Visit: Yes Status: Acute Assessment and plan: Secondary to pneumonia. Service consulted for oxygen to be set up at home. (2) Pneumonia Current Visit: Yes Status: Acute Assessment and plan: CXR showed right lower lobe pna improving slowly. completed 7 days of levaquin inpatient. reepat CXR given persistent hypoxemia. Qualifiers: Pneumonia type: due to unspecified organism Laterality: right Lung location: upper lobe of lung Qualified Code(s): J18.1 - Lobar pneumonia, unspecified organism (3) Alcohol withdrawal Current Visit: Yes Status: Acute Assessment and plan: heavy alcohol drinker, he drinks up to 30 beers per day. continue fixed diazepam regimen taper and prn. still having tremors and imbalance. close monitor. Patient and family declined any rehabilitation placement despite patient is unable to ambulate and is at high risk for falling. Sister reports that his girlfriend will stay with him 24 hours daily and 7 days a week. Qualifiers: Complication of substance-induced condition: with delirium Qualified Code(s ): F10.231 - Alcohol dependence with withdrawal delirium (4) Acute encephalopathy Current Visit: Yes Status: Acute Assessment and plan: metabolic. multifactorial: hyponatremia, seizure, infection. Treating underlying etiology (5) Hyponatremia Current Visit: No Status: Chronic Assessment and plan: Patient presented to our ED complaining of nausea, vomiting and no oral intake. Sodium was 114. He was admitted to our ICU and his sodium has corrected nicely to 133. continue sodium tablets 1 gm bid. (6) Seizure Current Visit: Yes Status: Resolved Assessment and plan: Patient had seizure in the ER on admission. Sodium was 114. seizure secondary to hyponatremia and alcohol withdrawal (not able to drink due to nausea and vomiting). (7) Elevated LFTs Current Visit: Yes Status: Acute Assessment and plan: secondary to alcohol abuse. LFTs are trending down. (8) Tobacco abuse Current Visit: Yes Status: Chronic Assessment and plan: counseled to quit. nicotine patch (9) Hypomagnesemia Current Visit: Yes Status: Acute Assessment and plan: replete - Subjective Interval history: patient is alert and is eager to go home. He and his sister decline any rehabilitation placement. resting SaO2 is 84% at room air. - Constitutional Vitals: Temp Pulse Resp BP Pulse Ox 97.8 F 84 16 132/83 95 01/22/17 15:24 01/22/17 15:24 01/22/17 15:24 01/22/17 15:24 01/22/17 15:24 General appearance: Present: cooperative, A&O X 2, pleasant, no acute distress - Eye Eye exam: Present: PERRL, sclera anicteric - Neck Neck exam general surgery: Present: supple, trachea midline. Absent: lymphadenopathy - Respiratory Respiratory exam: Present: decreased breath sounds (at right lung base) - GI/Abdominal GI/Abdominal exam: Present: normal bowel sounds, soft. Absent: distended, tenderness - Extremities Exam Extremities exam: Absent: pedal edema - Back Exam Back exam: Absent: CVA tenderness (L), CVA tenderness (R) - Neurological Exam Neurological exam: Present: abnormal gait (imbalance), alert, oriented X3, no focal deficits, strengths equal and symetr throughout. Absent: facial droop, speech deficit - Skin Skin exam: Present: dry. Absent: normal color Internal Medicine: Result - Labs CBC & Chem 7: 01/21/17 07:11 01/22/17 05:03 Labs: BMP 01/22/17 05:03 Sodium 133 L Potassium 3.4 L Chloride 99 Carbon Dioxide 25 BUN 4 L Creatinine 0.59 L Glucose 121 H Calcium 8.1 L - ABG Interpretation ABG results: PT/INR, D-dimer PT 12.4 Seconds (9.4-12.1) H 01/16/17 10:30 - VTE Documentation of Mechanical Device: Intermittent pneumatic compression device Consult Discharge Plan - Plan Referrals: Varun Jimenez MD [Primary Care Provider] -
[2017-01-23] MEDS: Levofloxacin 500 MG/100 ML 500 MG/100 ML BAG IVPB SCH (01:46)
[2017-01-23] MEDS: *HR* Heparin 5,000 UNIT/ML VIAL SQ SCH (05:55)
[2017-01-23 06:44] LABS: BUN/Creatinine Ratio 8 (6-26); Calcium 8.6 mg/dL (8.6-10.8); Carbon Dioxide 28 mEq/L (19-29); Chloride 100 mEq/L (98-109); Glucose 100 mg/dL (70-99); Magnesium 1.8 mg/dL (1.6-2.6); Osmolality,Calculated 279 (280-300); Sodium 136 mEq/L (136-145); eGFR For African Americans > 60 (> 60); eGFR For Non-African Americans > 60 (> 60)
[2017-01-23 06:46] LABS: Blood Urea Nitrogen 5 mg/dL (8-26); Potassium 4.6 mEq/L (3.5-4.5)
--- NOTE | 2017-01-23 07:56 | Discharge Summary ---
Date of Encounter: 01/23/17 Time of Encounter: 07:45 - Discharge Diagnosis (1) Acute respiratory failure with hypoxia Priority: Primary Status: Acute (2) Pneumonia Priority: Primary Status: Acute Qualifiers: Pneumonia type: due to unspecified organism Laterality: right Lung location: upper lobe of lung Qualified Code(s): J18.1 - Lobar pneumonia, unspecified organism (3) Alcohol withdrawal Priority: Primary Status: Acute Qualifiers: Complication of substance-induced condition: with delirium Qualified Code(s ): F10.231 - Alcohol dependence with withdrawal delirium (4) Acute encephalopathy Priority: Primary Status: Acute (5) Hyponatremia Priority: Primary Status: Chronic (6) Seizure Priority: Primary Status: Resolved (7) Elevated LFTs Priority: Primary Status: Acute (8) Tobacco abuse Priority: Secondary Status: Chronic (9) Hypomagnesemia Priority: Primary Status: Resolved - Discharge Medications Prescriptions: Ipratropium/Albuterol Neb [Duoneb] 3 ml IH Q4HR 30 Days Diazepam [Valium] 2 mg PO DAILY PRN #10 tablet PRN Reason: Alcohol Withdrawal Diazepam [Valium] 2 mg PO DAILY #12 tablet Disulfiram [Antabuse] 250 mg PO DAILY #30 tablet Folic Acid 1 mg PO DAILY #30 tablet Nebulizer [Aeroeclipse] 1 each MC AD #1 each Nicotine Patch [Nicoderm] 21 mg TD DAILY #30 patch.td24 Sodium Chloride 1 gm PO BID #60 tablet Thiamine (B-1) [Vitamin B-1] 100 mg PO DAILY #30 tablet Home Medications: Cyanocobalamin (Vitamin B-12) [Vitamin B-12] 100 mg PO DAILY 01/15/17 [History] Multivitamin [Tab-A-Kian] 1 tab PO DAILY 01/15/17 [History] Diazepam [Valium] 2 mg PO DAILY #12 tablet 01/23/17 [Rx] Diazepam [Valium] 2 mg PO DAILY PRN #10 tablet 01/23/17 [Rx] Disulfiram [Antabuse] 250 mg PO DAILY #30 tablet 01/23/17 [Rx] Folic Acid 1 mg PO DAILY #30 tablet 01/23/17 [Rx] Ipratropium/Albuterol Neb [Duoneb] 3 ml IH Q4HR 30 Days 01/23/17 [Rx] Magnesium Oxide [Mag-Ox] 400 mg PO BID #60 tablet 01/23/17 [Rx] Nebulizer [Aeroeclipse] 1 each MC AD #1 each 01/23/17 [Rx] Nicotine Patch [Nicoderm] 21 mg TD DAILY #30 patch.td24 01/23/17 [Rx] Sodium Chloride 1 gm PO BID #60 tablet 01/23/17 [Rx] Thiamine (B-1) [Vitamin B-1] 100 mg PO DAILY #30 tablet 01/23/17 [Rx] Allergies/Adverse Reactions: Allergies Sulfa (Sulfonamide Antibiotics) Allergy (Mild, Verified 01/15/17 09:32) Rash Date of admission: 01/16/17 14:38 Primary care physician: Varun Jimenez MD Consults: 01/17/17 01:59 Consult to Nurse Navigator [CONS] Routine Comment: 01/18/17 11:00 Consult to Physical Therapy [CONS] Routine Comment: Evaluate, develop and implement POC OT [Consult to Occupational Therapy] [CONS] Routine Comment: Evaluate, develop and implement POC - Patient Status Disposition: Home, Self-Care Condition: Fair Functional capacity at discharge: uses cane/walker Overall status at discharge: patient is not back to baseline - Discharge Instructions Instructions: Alcohol Withdrawal (DC), Pneumonia (DC) Follow Up With: Varun Jimenez MD [Primary Care Provider] - (f/u in 1 week) Additional Instructions: STOP DRINKING ALCOHOL. USE OXYGEN ALL THE TIME FOLLOW UP WITH primary care doctor within 1 week - Diet and Activity Activity: ambulate only with your walker, wear oxygen at all times Diet: regular diet Interval History: No nausea. No vomiting. No chest pain. Chronic cough is still present. No abdominal pain. Patient is eager to go home. Hospital course: Mr. Parker is a 56 year old male with past medical history of heavy alcohol use and tobacco use who presented with nausea, vomiting and no oral intake. In our ED, patient had a seizure and received IV Ativan with resolution of it. Sodium on admission was 114. She was admitted to our intensive care unit where his sodium corrected nicely to 133. He was treated for metabolic encephalopathy due to hyponatremia, seizures, aspiration pneumonia. Completed 7 days of Levaquin in patient and was started on sodium tablets 1 g twice a day. He had no more seizures during this hospitalization. She required oxygen due to aspiration pneumonia and possible COPD from long-term use of tobacco. PLAN: repeat CXR in 4-6 weeks. PFTs as an outpatient. Alcohol cessation as outpatient. Follow-up with primary care physician in one week for possible COPD , alcohol withdrawal, repeat BMP, LFTs. Patient encouraged to quit alcohol and tobacco. He will try. - Time Spent with Patient Total time spent providing and/or coordinating discharge services: - Constitutional Vitals: Temp Pulse Resp BP Pulse Ox 98.3 F 82 16 138/89 93 L 01/23/17 06:35 01/23/17 06:35 01/23/17 06:35 01/23/17 06:35 01/23/17 06:35 General appearance: Present: cooperative, A&O X 2, pleasant, no acute distress - Eye Eye exam: Present: PERRL, sclera anicteric - ENT ENT exam: Present: mucous membranes moist - Neck Neck exam general surgery: Present: supple, trachea midline. Absent: lymphadenopathy - Respiratory Respiratory exam: Present: decreased breath sounds - Cardiovascular Cardiovascular exam: Present: RRR - GI/Abdominal GI/Abdominal exam: Present: normal bowel sounds, soft. Absent: distended, tenderness - Extremities Exam Extremities exam: Absent: pedal edema - Back Exam Back exam: Absent: CVA tenderness (L), CVA tenderness (R) - Neurological Exam Neurological exam: Present: alert, oriented X3, no focal deficits, strengths equal and symetr throughout. Absent: facial droop, speech deficit - Skin Skin exam: Absent: rash - VTE Documentation of Mechanical Device: Intermittent pneumatic compression device
[2017-01-23] MEDS: Folic Acid 1 MG TABLET PO SCH (08:45)
[2017-01-23] MEDS: Nicotine 21 MG PATCH.TD24 TD SCH (08:45)
[2017-01-23] MEDS: Thiamine (B-1) 100 MG TABLET PO SCH (08:45)
[2017-01-23] MEDS ORDERED: diazePAM 2 MG TABLET PO SCH (09:00)
[2017-01-23] MEDS ORDERED: Magnesium Oxide 400 MG TABLET PO SCH (09:00)
[2017-01-23 10:46] VITALS: BP 117/76
== END 2017-01-23 15:33 | disposition home or self-care (01) | DRG 775 ==
LOC: ICNU 09:30 → EMEROO 09:30 → ICNU 13:41 → SUATTDRO 01-16 14:38 → 3NENU 01-19 23:02
PROVIDERS: ADMIT Internal Medicine; ATTEND Internal Medicine

== ENCOUNTER 2017-05-29 14:27 | Inpatient (IN) ==
--- NOTE | 2017-05-29 14:31 | Emergency Department Note ---
Disposition Clinical Impression: Alcohol withdrawal Disposition: Admitted As Inpatient Forms: ED Satisfaction Letter Alcohol HPI - General Chief Complaint: ED Alcohol Abuse Stated Complaint: Alcohol withdrawl Time Seen by Provider: 05/29/17 14:30 Source: patient Mode of arrival: ambulatory Limitations: no limitations Nursing Notes Reviewed: Yes Vital Signs Reviewed: Yes - History of Present Illness Pt Subjective Complaint: alcohol withdrawal Last Drink: days (ago) (1) Alcohol Type: Beer Amount of alcohol consumed: 12 per day Chronic Alcohol Use: Yes Previous Visits for Alcohol Intoxication?: Yes Recent Trauma: No Associated symptoms: Reports: diaphoresis, tremors Treatments prior to arrival: none - Related Data Home Medications Medication Instructions Recorded Confirmed Cyanocobalamin (Vitamin B-12) 100 mg PO DAILY 01/15/17 01/15/17 [Vitamin B-12] Multivitamin [Tab-A-Kian] 1 tab PO DAILY 01/15/17 01/15/17 Previous Rx's Medication Instructions Recorded Disulfiram [Antabuse] 250 mg PO DAILY #30 tablet 01/23/17 Folic Acid 1 mg PO DAILY #30 tablet 01/23/17 Ipratropium/Albuterol Neb [Duoneb] 3 ml IH Q4HR 30 Days 01/23/17 Magnesium Oxide [Mag-Ox] 400 mg PO BID #60 tablet 01/23/17 Nebulizer [Aeroeclipse] 1 each AD #1 each 01/23/17 Nicotine Patch [Nicoderm] 21 mg TD DAILY #30 patch.td24 01/23/17 Sodium Chloride 1 gm PO BID #60 tablet 01/23/17 Thiamine (B-1) [Vitamin B-1] 100 mg PO DAILY #30 tablet 01/23/17 diazePAM [Valium] 2 mg PO DAILY #12 tablet 01/23/17 diazePAM [Valium] 2 mg PO DAILY PRN #10 tablet 01/23/17 Ondansetron ODT [Zofran ODT] 4 mg SL Q6HR #10 tab.rapdis 02/17/17 Allergies Allergy/AdvReac Type Severity Reaction Status Date / Time Sulfa (Sulfonamide Allergy Mild Rash Verified 05/29/17 14:28 Antibiotics) All systems ED: reviewed and negative except as stated. Constitutional: Denies: fever, chills Cardiovascular: Denies: chest pain, palpitations, dyspnea on exertion Respiratory: Denies: cough Gastrointestinal: Denies: abdominal pain Past Medical History - Past Medical History Source: patient, old records reviewed, nursing notes reviewed Medical history: Reports: no medical history Surgical history: Reports: other Psychiatric history: Reports: anxiety, depression - Social History Smoking Status: Current every day smoker Smokeless Tobacco Status: No Alcohol use: Reports: heavy Drug use: Reports: none Physical Exam - General Limitations: no limitations General appearance: alert, in no apparent distress - Head Head exam: atraumatic, normocephalic, normal inspection - Eye Eye exam: Present: normal appearance, PERRL, EOMI - Expanded Eye Exam Pupils: Left: reactive - ENT ENT exam: normal exam, normal oropharynx, mucous membranes moist - Expanded ENT Exam External ear exam: Present: normal external inspection Mouth exam: Present: normal external inspection Teeth exam: Present: normal inspection Throat exam: Present: normal inspection - Neck Neck exam: Present: normal inspection, full ROM, trachea midline - Chest Chest inspection: Present: normal inspection, symmetric chest wall rise - Respiratory Respiratory exam: Present: normal lung sounds bilaterally - Cardiovascular Cardiovascular exam: Present: regular rate, normal rhythm, normal heart sounds - Abdominal Exam Abdominal exam: Present: soft, Non-Tender. Absent: tenderness, distention, guarding, rebound, rigidity - Extremities Exam Extremities exam: Present: normal inspection, full ROM. Absent: tenderness, pedal edema - Expanded Upper Extremity Exam Shoulder exam: Present: normal inspection, full ROM Arm exam: Present: normal inspection, full ROM Elbow exam: Present: normal inspection, full ROM Forearm/Wrist exam: Present: normal inspection, full ROM Hand exam: Present: normal inspection, full ROM Vascular exam: Normal: capillary refill, radial pulse - Expanded Lower Extremity Exam Hip/Pelvis exam: Present: normal inspection, full ROM Upper leg exam: Present: normal inspection, full ROM Knee exam: Present: normal inspection, full ROM Lower leg exam: Present: normal inspection, full ROM Ankle exam: Present: normal inspection, full ROM Foot/toe exam: Present: normal inspection, full ROM Neurovascular/Tendon exam: Absent: motor deficit, sensory deficit, tendon deficit - Back Exam Back exam: Present: normal inspection, full ROM. Absent: tenderness - Neurological Exam Neurological exam: Present: alert, oriented X3, other (tremor bilat upper ext.) - Expanded Neurological Exam Patient oriented to: Present: person, place, time Coma Scale Eye Opening: Spontaneous Coma Scale Motor Response: Obeys Commands Coma Scale Verbal Response: Oriented Coma Scale Total: 15 - Psychiatric Psychiatric exam: Present: normal affect, normal mood - Skin Skin exam: Present: warm, dry, intact, normal color Course Vital Signs Temperature 98.6 F 05/29/17 14:28 Pulse Rate 85 05/29/17 14:28 Respiratory Rate 18 05/29/17 14:28 Blood Pressure 143/92 05/29/17 14:28 O2 Sat by Pulse Oximetry 100 05/29/17 14:28 Temperature 98.6 F 05/29/17 14:28 Pulse Rate 90 05/29/17 15:38 Respiratory Rate 18 05/29/17 14:28 Blood Pressure 137/93 05/29/17 15:38 O2 Sat by Pulse Oximetry 96 05/29/17 15:38 Oxygen Delivery Oxygen Delivery Room Air Alcohol - Lab Data Result diagrams: 05/29/17 14:51 05/29/17 15:44 Lab Results 05/29/17 05/29/17 05/29/17 Range/Units 14:51 14:51 15:44 WBC 5.8 (4.3-11.1) K/mcL RBC 5.12 (4.19-5.50) M/mcL Hgb 15.9 (12.9-16.9) g/dL Hct 45.2 (37.5-50.1) % MCV 88.3 (83.0-100.0) fL MCH 31.1 (28.0-33.3) pg MCHC 35.2 (31.6-35.5) g/dL RDW 12.7 (11.5-14.5) % Plt Count 90 L (140-400) K/mcL MPV 9.9 (9.4-12.4) fL Immature Gran % 0.3 (0-4) % Seg Neutrophils % 91.0 % Lymphocytes % 3.8 % Monocytes % 4.7 % Eosinophils % 0.0 % Basophils % 0.2 % Neutrophils # 5.3 (1.6-8.9) K/mcL Lymphocytes # 0.2 L (0.6-4.6) K/mcL Monocytes # 0.3 (0.0-1.3) K/mcL Eosinophils # 0.0 (0.0-0.6) K/mcL Basophils # 0.0 (0.0-0.2) K/mcL Immature Plt Fraction 5.3 (1.1-6.1) % Sodium 134 L (136-145) mEq/L Potassium 4.0 (3.5-4.5) mEq/L Chloride 95 L (98-109) mEq/L Carbon Dioxide 27 (19-29) mEq/L BUN 7 L (8-26) mg/dL Creatinine 0.70 L (0.72-1.25) mg/dL Est GFR ( Amer) > 60 (> 60) Est GFR (Non-Af Amer) > 60 (> 60) BUN/Creatinine Ratio 10 (6-26) Glucose 125 H (70-99) mg/dL Calculated Osmolality 277 L (280-300) Calcium 9.3 (8.6-10.8) mg/dL Magnesium 1.5 L (1.6-2.6) mg/dL Total Bilirubin 0.4 (0.2-1.2) mg/dL AST 34 (5-34) Units/L ALT 12 (0-55) Units/L Alkaline Phosphatase 41 (38-126) Units/L Serum Total Protein 7.1 (6.0-8.3) g/dL Albumin 3.5 (3.5-5.0) g/dL Globulin 3.6 H (2.4-3.5) g/dL Albumin/Globulin Ratio 1.0 L (1.1-2.2) Lipase 26 (8-78) Units/L Ethyl Alcohol 97 H (0-10) mg/dL Specimen Rejected Hemolyzed
[2017-05-29] MEDS ORDERED: *HR* LORazepam 2 MG/ML VIAL IVP ONE ×2 (14:37→15:07)
[2017-05-29 14:59] LABS: Mean Corpuscular HGB Conc 35.2 g/dL (31.6-35.5); Mean Platelet Volume 9.9 fL (9.4-12.4)
[2017-05-29 15:01] LABS: Basophils % 0.2 %; Hematocrit 45.2 % (37.5-50.1); Hemoglobin 15.9 g/dL (12.9-16.9); Immature Granulocytes % 0.3 % (0-4); Immature Platelets 5.3 % (1.1-6.1); Lymphocytes # 0.2 K/mcL (0.6-4.6); Lymphocytes % 3.8 %; Mean Corpuscular Hemoglobin 31.1 pg (28.0-33.3); Mean Corpuscular Volume 88.3 fL (83.0-100.0); Monocytes # 0.3 K/mcL (0.0-1.3); Monocytes % 4.7 %; Red Blood Count 5.12 M/mcL (4.19-5.50); Red Cell Distribution Width 12.7 % (11.5-14.5)
[2017-05-29 15:06] LABS: Neutrophils # 5.3 K/mcL (1.6-8.9)
[2017-05-29 15:07] LABS: Platelet Count 90 K/mcL (140-400)
[2017-05-29 16:05] LABS: Alanine Aminotransferase 12 Units/L (0-55); Albumin 3.5 g/dL (3.5-5.0); Alkaline Phosphatase 41 Units/L (38-126); Aspartate Amino Transferase 34 Units/L (5-34); BUN/Creatinine Ratio 10 (6-26); Bilirubin,Total 0.4 mg/dL (0.2-1.2); Blood Urea Nitrogen 7 mg/dL (8-26); Calcium 9.3 mg/dL (8.6-10.8); Carbon Dioxide 27 mEq/L (19-29); Chloride 95 mEq/L (98-109); Globulin 3.6 g/dL (2.4-3.5); Glucose 125 mg/dL (70-99); Lipase 26 Units/L (8-78); Magnesium 1.5 mg/dL (1.6-2.6); Osmolality,Calculated 277 (280-300); Sodium 134 mEq/L (136-145); Total Protein 7.1 g/dL (6.0-8.3); eGFR For African Americans > 60 (> 60); eGFR For Non-African Americans > 60 (> 60)
[2017-05-29] MEDS ORDERED: Folic Acid 1 MG in D5% in Water 50 ML IVPB STA (16:09)
[2017-05-29] MEDS ORDERED: Thiamine (B-1) 100 MG TABLET PO STA (16:09)
[2017-05-29 16:24] LABS: Ethanol 97 mg/dL (0-10)
[2017-05-29 16:38] LABS: Folate 13.2 ng/mL (7.0-31.4)
[2017-05-29] MEDS ORDERED: *HR* Morphine 2 MG/ML SYRINGE IVP PRN (17:15)
[2017-05-29] MEDS ORDERED: Ondansetron 4 MG/2 ML VIAL IVP PRN (17:15)
[2017-05-29] MEDS ORDERED: Naloxone 0.4 MG/ML INJ IVP PRN (17:15)
[2017-05-29] MEDS ORDERED: Acetaminophen 325 MG TABLET PO PRN (17:15)
[2017-05-29] MEDS ORDERED: *HR* LORazepam 2 MG/ML VIAL IVP PRN (17:15)
[2017-05-29] MEDS ORDERED: Ipratropium/Albuterol Neb 3 ML IH PRN (17:18)
[2017-05-29] MEDS ORDERED: MVI, adult with vitamin K 10 ML in 0.9 % Sodium Chloride 1,000 ML IVC ONE (17:20)
--- NOTE | 2017-05-29 17:24 | Internal Med History&Physical ---
Date of Encounter: 05/29/17 Time of Encounter: 17:21 Assessment and Plan (1) Alcohol withdrawal Current visit: No Status: Acute Possible early alcohol withdrawal Continue and taper Librium. Order Ativan as needed for CIWA scale Banana bag, IV fluids afterwards. Start thiamine, folate and multivitamins Fall and aspiration precautions Hold Antabuse Omeprazole for GI prophylaxis and subcutaneous Heparin for DVT prophylaxis. The patient will be admitted as inpatient, expected to stay more than 2 midnights. Full code. Time spent on this admission 40 minutes. High risk due to alcohol withdrawal Qualifiers: Complication of substance-induced condition: with delirium Qualified Code(s ): F10.231 - Alcohol dependence with withdrawal delirium (2) Hyponatremia Current visit: No Status: Chronic Monitor sodium (3) Tobacco abuse Current visit: No Status: Chronic Smoking cessation counseling. Nicotine patch ordered (4) Depression Current visit: Yes Status: Acute Qualifiers: Depression Type: major depressive disorder Major depression recurrence: recurrent Active/Remission status: remission status unspecified Qualified Code(s): F33.9 - Major depressive disorder, recurrent, unspecified Internal Medicine - H&P: HPI Chief complaint: Shaking Admitted From: Emergency Dept History of present illness: Mr. Parker is a 56 year old male with a past medical history of alcohol abuse, seizures in the past due to withdrawal, tobacco abuse, hypomagnesemia, depression. Came to the emergency room complaining of severe shaking. He started shaking last night after having his last drink of beer. In the past he used to drink 30 beers a day now he cut down to 12 per day. The patient is not sure whether he was started recently on disulfiram/Antabuse but currently is on his list of medications being likely the source of his symptoms of nausea. His alcohol level was 97. He is tachycardic appears dehydrated complains of severe nausea and some abdominal pain. Denies any chest pain, has watery diarrhea since early this morning without cramps at this time. Past Med Surg Social Fam HX - Past Medical History Medical history: other (Aspiration pneumonia, respiratory failure, alcohol abuse , hyponatremia, seizures secondary to withdrawal, tobacco, hypomagnesemia, depression, possible COPD diagnosed officially) Psychiatric history: anxiety, depression - Past Surgical History Surgical History: other (Back surgery) - Social History Smoking Status: Current every day smoker Packs per day: One pack per day Smokeless Tobacco Status: No Alcohol use: heavy (12 beers a day) Drug use: none - Family History Mother Adopted: No Living Status: Hx Family Cardiac Disorders: Yes Hx Family Respiratory Disorders: Yes Hx Family Cancer: Yes Hx Family GI Disorders: No Hx Family Endocrine Disorder: No Hx Family Neuromuscular Disorders: No Hx Family Neurologic Disorders: No Hx Family HEENT Disorders: No Hx Family Autoimmune Disorders: No Father Living Status: Hx Family Neurologic Disorders: Yes (CVA) - Additional Family History Additional family history: Mother with heart disease Internal Medicine - H&P: Meds Cyanocobalamin (Vitamin B-12) [Vitamin B-12] 100 mg PO DAILY 01/15/17 [History] Multivitamin [Tab-A-Kian] 1 tab PO DAILY 01/15/17 [History] Disulfiram [Antabuse] 250 mg PO DAILY #30 tablet 01/23/17 [Rx] Folic Acid 1 mg PO DAILY #30 tablet 01/23/17 [Rx] Ipratropium/Albuterol Neb [Duoneb] 3 ml IH Q4HR 30 Days 01/23/17 [Rx] Magnesium Oxide [Mag-Ox] 400 mg PO BID #60 tablet 01/23/17 [Rx] Nebulizer [Aeroeclipse] 1 each AD #1 each 01/23/17 [Rx] Nicotine Patch [Nicoderm] 21 mg TD DAILY #30 patch.td24 01/23/17 [Rx] Sodium Chloride 1 gm PO BID #60 tablet 01/23/17 [Rx] Thiamine (B-1) [Vitamin B-1] 100 mg PO DAILY #30 tablet 01/23/17 [Rx] diazePAM [Valium] 2 mg PO DAILY #12 tablet 01/23/17 [Rx] diazePAM [Valium] 2 mg PO DAILY PRN #10 tablet 01/23/17 [Rx] Ondansetron ODT [Zofran ODT] 4 mg SL Q6HR #10 tab.rapdis 02/17/17 [Rx] Allergies Sulfa (Sulfonamide Antibiotics) Allergy (Mild, Verified 05/29/17 14:28) Rash All Systems PM: A 10-system review of systems was performed and is negative for pertinent findings except as documented above in the HPI. Review of systems: No chest pain, no shortness of breath. Tremors are evident are very evident. Denies any other complaints. Other systems out of the 10 reviewed were negative - Constitutional Vitals: Temp Pulse Resp BP Pulse Ox 98.6 F 82 12 139/93 96 05/29/17 14:28 05/29/17 16:36 05/29/17 16:36 05/29/17 16:36 05/29/17 16:36 General appearance: Present: A&O X 3, underweight - Head Head exam: Present: atraumatic, normocephalic - Eye Eye exam: Present: PERRL, conjuntiva pink, sclera anicteric Pupils: Present: PERRL - Neck Neck exam general surgery: Present: supple, trachea midline. Absent: lymphadenopathy - Respiratory Respiratory exam: Present: CTAB. Absent: accessory muscle use, rales, rhonchi, wheezes - Cardiovascular Cardiovascular exam: Present: RRR, +S1, +S2. Absent: diastolic murmur, gallop, rubs, systolic murmur - GI/Abdominal GI/Abdominal exam: Present: normal bowel sounds, soft, no peritoneal signs. Absent: distended, tenderness - Extremities Exam Extremities exam: Present: warm, radial pulses palpable and symetrical. Absent : calf tenderness, cyanotic, pedal edema - Neurological Exam Neurological exam: Present: CN II-XII intact, oriented X3, no focal deficits. Absent: pronater drift, facial droop, speech deficit Additional comments: Severe tremors - Skin Skin exam: Present: dry, intact Internal Med - H&P Results - Labs CBC & Chem 7: 05/29/17 14:51 05/29/17 15:44
[2017-05-29] MEDS: Folic Acid 1 MG TABLET PO SCH (18:40)
[2017-05-29] MEDS: Nicotine 21 MG PATCH.TD24 TD SCH (18:40)
[2017-05-29] MEDS: *HR* LORazepam 2 MG/ML VIAL IVP PRN ×2 (18:40→23:49)
[2017-05-29] MEDS: *HR* Heparin 5,000 UNIT/ML VIAL SQ SCH ×2 (18:41→21:23)
[2017-05-29] MEDS: 0.9 % Sodium Chloride 1,000 ML IVC SCH (18:52)
[2017-05-29] MEDS: Magnesium Oxide 400 MG TABLET PO SCH (21:22)
[2017-05-30] MEDS: 0.9 % Sodium Chloride 1,000 ML IVC SCH ×3 (04:14→22:19)
[2017-05-30 05:47] LABS: Alanine Aminotransferase 9 Units/L (0-55); Albumin/Globulin Ratio 0.9 (1.1-2.2); Alkaline Phosphatase 39 Units/L (38-126); Aspartate Amino Transferase 35 Units/L (5-34); BUN/Creatinine Ratio 8 (6-26); Calcium 8.8 mg/dL (8.6-10.8); Carbon Dioxide 31 mEq/L (19-29); Chloride 98 mEq/L (98-109); Globulin 3.3 g/dL (2.4-3.5); Glucose 87 mg/dL (70-99); Magnesium 1.6 mg/dL (1.6-2.6); Osmolality,Calculated 273 (280-300); Potassium 3.6 mEq/L (3.5-4.5); Sodium 133 mEq/L (136-145); Total Protein 6.3 g/dL (6.0-8.3); eGFR For African Americans > 60 (> 60); eGFR For Non-African Americans > 60 (> 60)
[2017-05-30 05:50] LABS: Bilirubin,Total 0.9 mg/dL (0.2-1.2); Blood Urea Nitrogen 5 mg/dL (8-26)
[2017-05-30] MEDS: *HR* Heparin 5,000 UNIT/ML VIAL SQ SCH ×3 (06:38→21:47)
[2017-05-30] MEDS: Folic Acid 1 MG TABLET PO SCH (07:34)
[2017-05-30] MEDS: Magnesium Oxide 400 MG TABLET PO SCH ×2 (07:34→20:00)
[2017-05-30] MEDS: Multivit/Ca/Min/Fe/FA 1 TAB TABLET PO SCH (07:34)
[2017-05-30] MEDS: Nicotine 21 MG PATCH.TD24 TD SCH (07:35)
[2017-05-30] MEDS ORDERED: Thiamine (B-1) 100 MG TABLET PO SCH (09:00)
[2017-05-30] MEDS: *HR* LORazepam 2 MG/ML VIAL IVP PRN ×3 (12:44→16:22)
[2017-05-30] MEDS ORDERED: THIAMINE IVPB ONE (16:48)
[2017-05-30] MEDS ORDERED: WATER IVPB ONE (16:48)
[2017-05-30] MEDS ORDERED: D5 IVPB ONE (16:48)
--- NOTE | 2017-05-30 16:50 | Internal Med Progress Note ---
Date of Encounter: 05/30/17 Time of Encounter: 10:00 - Assessment and plan (1) Alcohol withdrawal Current Visit: No Status: Acute Assessment and plan: We will continue to closely monitor patient and treat patient according to CINJ protocol. Continue Librium by mouth for anxiety. Banana bag has been given. - Closely follow-up magnesium level, treat Hypomagnesia - Increased dose of thiamine to prevent Wernicke encephalopathy. - cafeteria worker consult. Patient to need to discharge to detox center. Qualifiers: Complication of substance-induced condition: with delirium Qualified Code(s ): F10.231 - Alcohol dependence with withdrawal delirium (2) Hyponatremia Current Visit: No Status: Chronic Assessment and plan: Mild hyponatremia. Closely monitor sodium level. (3) DVT prophylaxis Current Visit: No Status: Acute Assessment and plan: Heparin subcutaneously. (4) Tobacco abuse Current Visit: No Status: Chronic Assessment and plan: Smoking cessation education. Nicotine patch placed. - Time Spent With Patient 25 - 35 minutes - Subjective Interval history: Patient is a 56-year-old male admitted for Alcoholism. I saw and examined patient today. Patient has nausea, hand shaking, and behavior abnormality. Consider alcohol withdrawal. Vitals are stable. Will continue closely monitor with patient according to CINJ protocol. Continue Librium for anxiety. Increase dose of thiamine to prevent Wernicke encephalopathy. - Constitutional Vitals: Temp Pulse Resp BP Pulse Ox 98.4 F 75 16 159/99 97 05/30/17 15:56 05/30/17 15:56 05/30/17 15:56 05/30/17 15:56 05/30/17 15:56 General appearance: Present: mild distress, A&O X 3, underweight - Head Head exam: Present: atraumatic, normocephalic - Eye Eye exam: Present: PERRL, conjuntiva pink, sclera anicteric Pupils: Present: PERRL - Neck Neck exam general surgery: Present: supple, trachea midline. Absent: lymphadenopathy - Respiratory Respiratory exam: Present: CTAB. Absent: accessory muscle use, rales, rhonchi, wheezes - Cardiovascular Cardiovascular exam: Present: RRR, +S1, +S2. Absent: diastolic murmur, gallop, rubs, systolic murmur - GI/Abdominal GI/Abdominal exam: Present: normal bowel sounds, soft, no peritoneal signs. Absent: distended, tenderness - Extremities Exam Extremities exam: Present: warm, radial pulses palpable and symetrical. Absent : calf tenderness, cyanotic, pedal edema - Neurological Exam Neurological exam: Present: CN II-XII intact, oriented X3, no focal deficits. Absent: pronater drift, facial droop, speech deficit - Skin Skin exam: Present: dry, intact Internal Medicine: Result - Labs CBC & Chem 7: 05/29/17 14:51 05/30/17 04:59 Labs: BMP 05/30/17 04:59 Sodium 133 L Potassium 3.6 Chloride 98 Carbon Dioxide 31 H BUN 5 L Creatinine 0.63 L Glucose 87 Calcium 8.8 Liver Function 05/30/17 Range/Units 04:59 Total Bilirubin 0.9 D (0.2-1.2) mg/dL AST 35 H (5-34) Units/L ALT 9 (0-55) Units/L Alkaline Phosphatase 39 (38-126) Units/L Albumin 3.0 L (3.5-5.0) g/dL Consult Discharge Plan - Plan Referrals: Varun Jimenez MD [Primary Care Provider] -
[2017-05-30] MEDS ORDERED: Nicotine 21 MG PATCH.TD24 TD ONE (18:56)
[2017-05-31] MEDS: 0.9 % Sodium Chloride 1,000 ML IVC SCH ×3 (05:47→17:58)
[2017-05-31] MEDS: *HR* Heparin 5,000 UNIT/ML VIAL SQ SCH ×3 (05:48→20:22)
[2017-05-31 06:31] LABS: Hemoglobin 14.6 g/dL (12.9-16.9); Immature Granulocytes % 0.5 % (0-4); Mean Platelet Volume 10.6 fL (9.4-12.4); Red Cell Distribution Width 12.3 % (11.5-14.5)
[2017-05-31 06:32] LABS: Basophils % 0.5 %; Eosinophils # 0.1 K/mcL (0.0-0.6); Eosinophils % 1.2 %; Hematocrit 42.2 % (37.5-50.1); Immature Platelets 8.2 % (1.1-6.1); Lymphocytes % 16.9 %; Mean Corpuscular HGB Conc 34.6 g/dL (31.6-35.5); Mean Corpuscular Hemoglobin 31.1 pg (28.0-33.3); Mean Corpuscular Volume 89.8 fL (83.0-100.0); Monocytes # 0.5 K/mcL (0.0-1.3); Neutrophils # 4.3 K/mcL (1.6-8.9); Segmented Neutrophils % 71.9 %
[2017-05-31 06:39] LABS: Platelet Count 81 K/mcL (140-400)
[2017-05-31 06:42] LABS: BUN/Creatinine Ratio 5 (6-26); Calcium 9.1 mg/dL (8.6-10.8); Carbon Dioxide 32 mEq/L (19-29); Chloride 97 mEq/L (98-109); Glucose 128 mg/dL (70-99); Magnesium 1.7 mg/dL (1.6-2.6); Osmolality,Calculated 276 (280-300); Potassium 3.1 mEq/L (3.5-4.5); Sodium 134 mEq/L (136-145); eGFR For African Americans > 60 (> 60); eGFR For Non-African Americans > 60 (> 60)
[2017-05-31 06:45] LABS: Blood Urea Nitrogen 3 mg/dL (8-26)
[2017-05-31 07:31] LABS: Platelet Estimate Decreased (Normal)
[2017-05-31] MEDS: Folic Acid 1 MG TABLET PO SCH (08:15)
[2017-05-31] MEDS: Multivit/Ca/Min/Fe/FA 1 TAB TABLET PO SCH (08:16)
[2017-05-31] MEDS: Magnesium Oxide 400 MG TABLET PO SCH ×2 (08:16→20:22)
[2017-05-31] MEDS: Nicotine 21 MG PATCH.TD24 TD SCH (08:16)
[2017-05-31] MEDS ORDERED: Thiamine (B-1) 100 MG TABLET PO SCH (09:00)
[2017-05-31] MEDS: *HR* LORazepam 2 MG/ML VIAL IVP PRN (13:54)
--- NOTE | 2017-05-31 17:06 | Internal Med Progress Note ---
Date of Encounter: 05/31/17 Time of Encounter: 10:00 - Assessment and plan (1) Alcohol withdrawal Current Visit: No Status: Acute Assessment and plan: We will continue to closely monitor patient and treat patient according to CIWA protocol. Continue Librium by mouth for anxiety. Banana bag has been given. - Closely follow-up magnesium level, treat Hypomagnesia - Increased dose of thiamine to prevent Wernicke encephalopathy. - rotary shear worker helper consult. Patient to need to discharge to detox center. Qualifiers: Complication of substance-induced condition: with delirium Qualified Code(s ): F10.231 - Alcohol dependence with withdrawal delirium (2) Hyponatremia Current Visit: No Status: Chronic Assessment and plan: Mild hyponatremia. Closely monitor sodium level. (3) DVT prophylaxis Current Visit: No Status: Acute Assessment and plan: Heparin subcutaneously. (4) Tobacco abuse Current Visit: No Status: Chronic Assessment and plan: Smoking cessation education. Nicotine patch placed. - Time Spent With Patient 25 - 35 minutes - Subjective Interval history: Patient is a 56-year-old male admitted for Alcoholism. I saw and examined patient today. Patient is fine today, denies nausea, hand shaking, or diaphoresis. Vitals are stable. Will continue closely monitor patient according to CIWA protocol. Continue Librium for anxiety. Increase dose of thiamine to prevent Wernicke encephalopathy. - Constitutional Vitals: Temp Pulse Resp BP Pulse Ox 98.2 F 75 17 136/84 95 05/31/17 15:31 05/31/17 15:31 05/31/17 15:31 05/31/17 15:31 05/31/17 15:31 General appearance: Present: mild distress, A&O X 3, underweight - Head Head exam: Present: atraumatic, normocephalic - Eye Eye exam: Present: PERRL, conjuntiva pink, sclera anicteric Pupils: Present: PERRL - Neck Neck exam general surgery: Present: supple, trachea midline. Absent: lymphadenopathy - Respiratory Respiratory exam: Present: CTAB. Absent: accessory muscle use, rales, rhonchi, wheezes - Cardiovascular Cardiovascular exam: Present: RRR, +S1, +S2. Absent: diastolic murmur, gallop, rubs, systolic murmur - GI/Abdominal GI/Abdominal exam: Present: normal bowel sounds, soft, no peritoneal signs. Absent: distended, tenderness - Extremities Exam Extremities exam: Present: warm, radial pulses palpable and symetrical. Absent : calf tenderness, cyanotic, pedal edema - Neurological Exam Neurological exam: Present: CN II-XII intact, oriented X3, no focal deficits. Absent: pronater drift, facial droop, speech deficit - Skin Skin exam: Present: dry, intact Internal Medicine: Result - Labs CBC & Chem 7: 05/31/17 06:01 05/31/17 06:01 Labs: Short CBC 05/31/17 Range/Units 06:01 WBC 6.0 (4.3-11.1) K/mcL Hgb 14.6 (12.9-16.9) g/dL Hct 42.2 (37.5-50.1) % Plt Count 81 L (140-400) K/mcL Neutrophils # 4.3 (1.6-8.9) K/mcL BMP 05/31/17 06:01 Sodium 134 L Potassium 3.1 L Chloride 97 L Carbon Dioxide 32 H BUN 3 L Creatinine 0.63 L Glucose 128 H Calcium 9.1 Consult Discharge Plan - Plan Referrals: Varun Jimenez MD [Primary Care Provider] - 06/08/17 10:15 am
[2017-06-01] MEDS: 0.9 % Sodium Chloride 1,000 ML IVC SCH ×3 (00:02→17:18)
[2017-06-01 05:34] LABS: Basophils % 0.7 %; Red Cell Distribution Width 12.5 % (11.5-14.5)
[2017-06-01 05:36] LABS: Eosinophils # 0.1 K/mcL (0.0-0.6); Hematocrit 38.4 % (37.5-50.1); Hemoglobin 12.8 g/dL (12.9-16.9); Immature Granulocytes % 0.5 % (0-4); Lymphocytes % 26.2 %; Mean Corpuscular HGB Conc 33.3 g/dL (31.6-35.5); Mean Corpuscular Hemoglobin 30.1 pg (28.0-33.3); Mean Corpuscular Volume 90.4 fL (83.0-100.0); Mean Platelet Volume 10.5 fL (9.4-12.4); Monocytes # 0.4 K/mcL (0.0-1.3); Monocytes % 8.7 %; Neutrophils # 2.7 K/mcL (1.6-8.9); Red Blood Count 4.25 M/mcL (4.19-5.50); Segmented Neutrophils % 60.9 %
[2017-06-01 05:37] LABS: Lymphocytes # 1.2 K/mcL (0.6-4.6); Platelet Count 80 K/mcL (140-400)
[2017-06-01 06:07] LABS: BUN/Creatinine Ratio 6 (6-26); Blood Urea Nitrogen 4 mg/dL (8-26); Calcium 8.8 mg/dL (8.6-10.8); Carbon Dioxide 29 mEq/L (19-29); Chloride 101 mEq/L (98-109); Glucose 115 mg/dL (70-99); Magnesium 1.6 mg/dL (1.6-2.6); Osmolality,Calculated 282 (280-300); Phosphorous 3.5 mg/dL (2.3-4.7); Potassium 3.4 mEq/L (3.5-4.5); Sodium 137 mEq/L (136-145); eGFR For African Americans > 60 (> 60); eGFR For Non-African Americans > 60 (> 60)
[2017-06-01] MEDS: *HR* Heparin 5,000 UNIT/ML VIAL SQ SCH ×3 (06:14→20:06)
[2017-06-01] MEDS: Folic Acid 1 MG TABLET PO SCH (09:30)
[2017-06-01] MEDS: Nicotine 21 MG PATCH.TD24 TD SCH (09:31)
[2017-06-01] MEDS: Thiamine (B-1) 100 MG TABLET PO SCH (09:31)
[2017-06-01] MEDS: Magnesium Oxide 400 MG TABLET PO SCH ×2 (09:31→20:09)
[2017-06-01] MEDS: Multivit/Ca/Min/Fe/FA 1 TAB TABLET PO SCH (09:31)
[2017-06-01] MEDS: *HR* LORazepam 2 MG/ML VIAL IVP PRN ×2 (09:31→20:09)
--- NOTE | 2017-06-01 18:43 | Internal Med Progress Note ---
Date of Encounter: 06/01/17 Time of Encounter: 09:00 - Assessment and plan (1) Alcohol withdrawal Current Visit: No Status: Acute Assessment and plan: We will continue to closely monitor patient and treat patient according to CIWA protocol. Continue Librium by mouth for anxiety. Banana bag has been given. - Closely follow-up magnesium level, treat Hypomagnesia - To prevent Wernicke encephalopathy, pt had thiamine 250mg po daily for 3 days , resume 100mg po daily. - rubber worker consult. Patient to need to discharge to detox center. Qualifiers: Complication of substance-induced condition: with delirium Qualified Code(s ): F10.231 - Alcohol dependence with withdrawal delirium (2) Hyponatremia Current Visit: No Status: Chronic Assessment and plan: Mild hyponatremia. Closely monitor sodium level. Improved. (3) DVT prophylaxis Current Visit: No Status: Acute Assessment and plan: Heparin subcutaneously. (4) Tobacco abuse Current Visit: No Status: Chronic Assessment and plan: Smoking cessation education. Nicotine patch placed. - Time Spent With Patient 25 - 35 minutes - Subjective Interval history: Patient is a 56-year-old male admitted for Alcoholism. I saw and examined patient today. Patient feels, denies nausea, hand shaking, or diaphoresis. Vitals are stable. Will continue closely monitor patient according to CIWA protocol. Taper down Librium. - Constitutional Vitals: Temp Pulse Resp BP Pulse Ox 98.6 F 77 16 138/86 96 06/01/17 14:52 06/01/17 14:52 06/01/17 14:52 06/01/17 14:52 06/01/17 14:52 General appearance: Present: mild distress, A&O X 3, underweight - Head Head exam: Present: atraumatic, normocephalic - Eye Eye exam: Present: PERRL, conjuntiva pink, sclera anicteric Pupils: Present: PERRL - Neck Neck exam general surgery: Present: supple, trachea midline. Absent: lymphadenopathy - Respiratory Respiratory exam: Present: CTAB. Absent: accessory muscle use, rales, rhonchi, wheezes - Cardiovascular Cardiovascular exam: Present: RRR, +S1, +S2. Absent: diastolic murmur, gallop, rubs, systolic murmur - GI/Abdominal GI/Abdominal exam: Present: normal bowel sounds, soft, no peritoneal signs. Absent: distended, tenderness - Extremities Exam Extremities exam: Present: warm, radial pulses palpable and symetrical. Absent : calf tenderness, cyanotic, pedal edema - Neurological Exam Neurological exam: Present: CN II-XII intact, oriented X3, no focal deficits. Absent: pronater drift, facial droop, speech deficit - Skin Skin exam: Present: dry, intact Internal Medicine: Result - Labs CBC & Chem 7: 06/01/17 04:41 06/01/17 04:41 Labs: Short CBC 06/01/17 Range/Units 04:41 WBC 4.4 (4.3-11.1) K/mcL Hgb 12.8 L D (12.9-16.9) g/dL Hct 38.4 (37.5-50.1) % Plt Count 80 L (140-400) K/mcL Neutrophils # 2.7 (1.6-8.9) K/mcL BMP 06/01/17 04:41 Sodium 137 Potassium 3.4 L Chloride 101 Carbon Dioxide 29 BUN 4 L Creatinine 0.69 L Glucose 115 H Calcium 8.8 Consult Discharge Plan - Plan Referrals: Varun Jimenez MD [Primary Care Provider] - 06/08/17 10:15 am
[2017-06-02] MEDS: *HR* Heparin 5,000 UNIT/ML VIAL SQ SCH ×3 (05:11→21:18)
[2017-06-02 05:20] LABS: Basophils # 0.1 K/mcL (0.0-0.2); Basophils % 1.1 %; Eosinophils # 0.1 K/mcL (0.0-0.6); Eosinophils % 2.8 %; Hematocrit 37.9 % (37.5-50.1); Hemoglobin 12.9 g/dL (12.9-16.9); Immature Granulocytes % 0.9 % (0-4); Lymphocytes # 1.1 K/mcL (0.6-4.6); Lymphocytes % 24.4 %; Mean Corpuscular Hemoglobin 30.9 pg (28.0-33.3); Mean Corpuscular Volume 90.7 fL (83.0-100.0); Mean Platelet Volume 10.6 fL (9.4-12.4); Monocytes # 0.5 K/mcL (0.0-1.3); Monocytes % 10.1 %; Neutrophils # 2.8 K/mcL (1.6-8.9); Platelet Count 102 K/mcL (140-400); Red Blood Count 4.18 M/mcL (4.19-5.50); Red Cell Distribution Width 12.4 % (11.5-14.5); Segmented Neutrophils % 60.7 %
[2017-06-02 05:33] LABS: BUN/Creatinine Ratio 13 (6-26); Blood Urea Nitrogen 8 mg/dL (8-26); Calcium 9.2 mg/dL (8.6-10.8); Carbon Dioxide 28 mEq/L (19-29); Chloride 100 mEq/L (98-109); Glucose 79 mg/dL (70-99); Magnesium 1.7 mg/dL (1.6-2.6); Osmolality,Calculated 275 (280-300); Phosphorous 4.4 mg/dL (2.3-4.7); Sodium 134 mEq/L (136-145); eGFR For African Americans > 60 (> 60); eGFR For Non-African Americans > 60 (> 60)
[2017-06-02] MEDS: *HR* LORazepam 2 MG/ML VIAL IVP PRN ×4 (08:20→16:36)
[2017-06-02] MEDS: Folic Acid 1 MG TABLET PO SCH (08:21)
[2017-06-02] MEDS: Multivit/Ca/Min/Fe/FA 1 TAB TABLET PO SCH (08:21)
[2017-06-02] MEDS: Magnesium Oxide 400 MG TABLET PO SCH ×2 (08:21→21:20)
[2017-06-02] MEDS: Thiamine (B-1) 100 MG TABLET PO SCH (08:21)
[2017-06-02] MEDS: Nicotine 21 MG PATCH.TD24 TD SCH (08:21)
--- NOTE | 2017-06-02 17:12 | Internal Med Progress Note ---
Date of Encounter: 06/02/17 Time of Encounter: 10:00 - Assessment and plan (1) Alcohol withdrawal Current Visit: No Status: Acute Assessment and plan: We will continue to closely monitor patient and treat patient according to CIWA protocol. Continue Librium by mouth for anxiety. Banana bag has been given. - Closely follow-up magnesium level, treat Hypomagnesia - To prevent Wernicke encephalopathy, pt had thiamine 250mg po daily for 3 days , resume to 100mg po daily. - hospital tray service worker consult. Patient to need to discharge to detox center. Qualifiers: Complication of substance-induced condition: with delirium Qualified Code(s ): F10.231 - Alcohol dependence with withdrawal delirium (2) Hyponatremia Current Visit: No Status: Chronic Assessment and plan: Mild hyponatremia. Closely monitor sodium level. Improved. (3) DVT prophylaxis Current Visit: No Status: Acute Assessment and plan: Heparin subcutaneously. (4) Tobacco abuse Current Visit: No Status: Chronic Assessment and plan: Smoking cessation education. Nicotine patch placed. - Time Spent With Patient 25 - 35 minutes - Subjective Interval history: Patient is a 56-year-old male admitted for Alcoholism. I saw and examined patient today. Patient feels fine, denies nausea, hand shaking, or diaphoresis. Has mild anxiety this morning. Vitals are stable. Will continue closely monitor patient according to CIWA protocol. Taper down Librium. - Constitutional Vitals: Temp Pulse Resp BP Pulse Ox 98.8 F 61 16 160/94 98 06/02/17 16:00 06/02/17 16:00 06/02/17 16:00 06/02/17 16:00 06/02/17 16:00 General appearance: Present: mild distress, A&O X 3, underweight - Head Head exam: Present: atraumatic, normocephalic - Eye Eye exam: Present: PERRL, conjuntiva pink, sclera anicteric Pupils: Present: PERRL - Neck Neck exam general surgery: Present: supple, trachea midline. Absent: lymphadenopathy - Respiratory Respiratory exam: Present: CTAB. Absent: accessory muscle use, rales, rhonchi, wheezes - Cardiovascular Cardiovascular exam: Present: RRR, +S1, +S2. Absent: diastolic murmur, gallop, rubs, systolic murmur - GI/Abdominal GI/Abdominal exam: Present: normal bowel sounds, soft, no peritoneal signs. Absent: distended, tenderness - Extremities Exam Extremities exam: Present: warm, radial pulses palpable and symetrical. Absent : calf tenderness, cyanotic, pedal edema - Neurological Exam Neurological exam: Present: CN II-XII intact, oriented X3, no focal deficits. Absent: pronater drift, facial droop, speech deficit - Skin Skin exam: Present: dry, intact Internal Medicine: Result - Labs CBC & Chem 7: 06/02/17 04:14 06/02/17 04:14 Labs: Short CBC 06/02/17 Range/Units 04:14 WBC 4.7 (4.3-11.1) K/mcL Hgb 12.9 (12.9-16.9) g/dL Hct 37.9 (37.5-50.1) % Plt Count 102 L (140-400) K/mcL Neutrophils # 2.8 (1.6-8.9) K/mcL BMP 06/02/17 04:14 Sodium 134 L Potassium 4.0 Chloride 100 Carbon Dioxide 28 BUN 8 Creatinine 0.61 L Glucose 79 Calcium 9.2 Consult Discharge Plan - Plan Referrals: Varun Jimenez MD [Primary Care Provider] - 06/08/17 10:15 am
[2017-06-03] MEDS: *HR* Heparin 5,000 UNIT/ML VIAL SQ SCH (05:43)
[2017-06-03 06:52] VITALS: BP 122/86
[2017-06-03] MEDS ORDERED: amLODIPine 5 MG TABLET PO SCH (09:00)
[2017-06-03] MEDS: Multivit/Ca/Min/Fe/FA 1 TAB TABLET PO SCH (09:29)
[2017-06-03] MEDS: Folic Acid 1 MG TABLET PO SCH (09:29)
[2017-06-03] MEDS: Thiamine (B-1) 100 MG TABLET PO SCH (09:29)
[2017-06-03] MEDS: Magnesium Oxide 400 MG TABLET PO SCH (09:29)
[2017-06-03] MEDS: Nicotine 21 MG PATCH.TD24 TD SCH (09:30)
[2017-06-03] MEDS: *HR* LORazepam 2 MG/ML VIAL IVP PRN (09:30)
--- NOTE | 2017-06-03 10:46 | Discharge Summary ---
Date of Encounter: 06/03/17 Time of Encounter: 09:00 - Discharge Diagnosis (1) Alcohol withdrawal Priority: Primary Status: Acute Qualifiers: Complication of substance-induced condition: with delirium Qualified Code(s ): F10.231 - Alcohol dependence with withdrawal delirium (2) Hyponatremia Priority: Secondary Status: Chronic (3) DVT prophylaxis Priority: Secondary Status: Acute (4) Tobacco abuse Priority: Secondary Status: Chronic (5) Hypertension Priority: Primary Status: Acute Qualifiers: Hypertension type: essential hypertension Qualified Code(s): I10 - Essential (primary) hypertension - Discharge Medications Prescriptions: amLODIPine [Norvasc] 5 mg PO DAILY #30 tab Chlordiazepoxide [Librium] See Taper PO TID #10 Losartan [Cozaar] 50 mg PO DAILY #60 tab Nicotine Patch [Nicoderm] 21 mg TD DAILY #30 Home Medications: Cyanocobalamin (Vitamin B-12) [Vitamin B-12] 100 mcg PO DAILY 05/29/17 [History] Folic Acid 1 mg PO DAILY 05/29/17 [History] Mv-Mn/FA/Vit K/Lycop/Lut/Coq10 [Daily Multivitamin Capsule] 1 tab PO DAILY 05/29 [History] Thiamine (B-1) [Vitamin B-1] 100 mg PO DAILY 05/29/17 [History] Chlordiazepoxide [Librium] See Taper PO TID #10 06/03/17 [Rx] Losartan [Cozaar] 50 mg PO DAILY #60 tab 06/03/17 [Rx] Magnesium Oxide [Mag-Ox] 400 mg PO BID tab 06/03/17 [Rx] Multivit/Ca/Min/Fe/FA [Thera M Plus] 1 tab PO DAILY tab 06/03/17 [Rx] Nicotine Patch [Nicoderm] 21 mg TD DAILY #30 06/03/17 [Rx] amLODIPine [Norvasc] 5 mg PO DAILY #30 tab 06/03/17 [Rx] Allergies/Adverse Reactions: Allergies Sulfa (Sulfonamide Antibiotics) Allergy (Mild, Verified 05/29/17 18:49) Rash - Notes to Outpatient Provider 1. Patient was found hypertension, hypertension medication losartan 50 mg by mouth daily plus amlodipine 5 mg by mouth daily prescribed. Please follow-up of BP. 2. Patient on Librium tapering down dose: 25 mg by mouth 3 times a day for 2 days, then 25 mg by mouth twice a day for 2 days, then stop. Date of admission: 05/29/17 17:01 Primary care physician: Varun Jimenez MD Consults: 05/29/17 17:15 Consult to Exercise Specialist [CONS] Routine Reason for SW Consult: plan Discharging clinician: Barbara Jaquez Anticipated date of discharge: 06/03/17 - Patient Status Disposition: Home, Self-Care Condition: Good Functional capacity at discharge: independent ambulation Overall status at discharge: patient is back to baseline - Discharge Instructions Follow Up With: Varun Jimenez MD [Primary Care Provider] - 06/08/17 10:15 am - Diet and Activity Activity: increase activity as tolerated Diet: low fat, low cholesterol, low salt diet Interval History: HPI: Mr. Parker is a 56 year old male with a past medical history of alcohol abuse, seizures in the past due to withdrawal, tobacco abuse, hypomagnesemia, depression. Came to the emergency room complaining of severe shaking. He started shaking last night after having his last drink of beer. In the past he used to drink 30 beers a day now he cut down to 12 per day. The patient is not sure whether he was started recently on disulfiram/Antabuse but currently is on his list of medications being likely the source of his symptoms of nausea. His alcohol level was 97. He is tachycardic appears dehydrated complains of severe nausea and some abdominal pain. Denies any chest pain, has watery diarrhea since early this morning without cramps at this time. Hospital course: Mr. Parker is a 56 year old male admitted for alcoholism. He was treated with CIWA protocol, vitamin B1, folic acid, Librium. Patient has minimal withdrawal symptoms with anxiety and confusion. Symptoms has been controlled by medications. Patient has been monitored in hospital for 5 days. No further withdrawal symptoms today. Patient was found hypertension, hypertension medication has been placed. Patient feels fine now. We will discharge patient home. Alcohol detox referal offered to patient, but he refused. I saw and examined the patient today. He is awake alert, oriented 3. Vitals are stable. Denies nausea, palpitation, anxiety, or diaphoresis. No hand shaking. Will discharge patient home with taper down Librium. Patient was advised no driving until further cleared by PCP. Patient will follow-up with PCP as outpatient. - Time Spent with Patient Total time spent providing and/or coordinating discharge services: 40 minutes Greater than 30 minutes - Constitutional Vitals: Temp Pulse Resp BP Pulse Ox 98.3 F 100 16 122/86 95 06/03/17 06:50 06/03/17 06:50 06/03/17 06:50 06/03/17 06:50 06/03/17 06:50 General appearance: Present: mild distress, A&O X 3, underweight, answers questions appropriately - Head Head exam: Present: atraumatic, normocephalic - Eye Eye exam: Present: PERRL, conjuntiva pink, sclera anicteric Pupils: Present: PERRL - Neck Neck exam general surgery: Present: supple, trachea midline. Absent: lymphadenopathy - Respiratory Respiratory exam: Present: CTAB. Absent: accessory muscle use, rales, rhonchi, wheezes - Cardiovascular Cardiovascular exam: Present: RRR, +S1, +S2. Absent: diastolic murmur, gallop, rubs, systolic murmur - GI/Abdominal GI/Abdominal exam: Present: normal bowel sounds, soft, no peritoneal signs. Absent: distended, tenderness - Extremities Exam Extremities exam: Present: warm, radial pulses palpable and symetrical. Absent : calf tenderness, cyanotic, pedal edema - Neurological Exam Neurological exam: Present: CN II-XII intact, oriented X3, no focal deficits. Absent: pronater drift, facial droop, speech deficit - Skin Skin exam: Present: dry, intact
== END 2017-06-03 11:06 | disposition home or self-care (01) | DRG 897 ==
LOC: 3BNU 14:27 → EMEROO 14:27 → SUATTDRO 17:01 → 3BNU 17:52
PROVIDERS: ADMIT Internal Medicine; ATTEND Internal Medicine

== ENCOUNTER 2017-06-12 19:15 | Observation (INO) ==
--- NOTE | 2017-06-12 19:20 | Emergency Department Note ---
Disposition Clinical Impression: Pulmonary nodule, right Concussion with loss of consciousness Qualifiers: Encounter type: initial encounter Qualified Code(s): S06.0X9A - Concussion with loss of consciousness of unspecified duration, initial encounter Syncope Qualifiers: Syncope type: heat syncope Encounter type: initial encounter Qualified Code(s) : T67.1XXA - Heat syncope, initial encounter Chest pain Qualifiers: Chest pain type: unspecified Qualified Code(s): R07.9 - Chest pain, unspecified Laceration of skin of forehead without complication Qualifiers: Encounter type: initial encounter Qualified Code(s): S01.81XA - Laceration without foreign body of other part of head, initial encounter Alcohol intoxication Qualifiers: Complication of substance-induced condition: uncomplicated Qualified Code(s): F10.920 - Alcohol use, unspecified with intoxication, uncomplicated Disposition: Admitted As Inpatient Condition: Fair Time of Disposition: 21:26 Fall HPI - General Chief Complaint: ED Fall Stated Complaint: Fall Time Seen by Provider: 06/12/17 19:19 Mode of arrival: ambulatory Limitations: no limitations Nursing Notes Reviewed: Yes Vital Signs Reviewed: Yes - History of Present Illness HPI Narrative: 56-year-old male history of alcoholism, presents after a syncopal event at home , he states that he was outside mowing the lawn, he came inside and felt dizzy and lightheaded, and some 3 out of 10 substernal chest pain, he syncopized passed out unsure if he lost consciousness or for how long. He hit his left forehead, and sustained a laceration to his head. He is not up-to-date on his tetanus shot. Patient reports drinking one or 2 beers today. When he has been in ED on records review previously for EtOH abuse. Patient denies history of blood clots, patient denies history of cardiac workup, he has a family history, and is a smoker. Pt Subjective Complaint: fall Onset (ago): hour(s) Fall Witnessed: no Place Fall Occurred: home Loss of Consciousness: unsure Symptoms Prior to Fall: lightheadedness, dizziness, chest pain Context: alcohol use Location of injury: head Severity: moderate Severity scale (1-10): 3 Associated symptoms (after fall): Reports: headache, chest pain - Related Data Home Medications Medication Instructions Recorded Confirmed Cyanocobalamin (Vitamin B-12) 100 mcg PO DAILY 05/29/17 06/12/17 [Vitamin B-12] Folic Acid 1 mg PO DAILY 05/29/17 06/12/17 Mv-Mn/FA/Vit K/Lycop/Lut/Coq10 1 tab PO DAILY 05/29/17 06/12/17 [Daily Multivitamin Capsule] Thiamine (B-1) [Vitamin B-1] 100 mg PO DAILY 05/29/17 06/12/17 Disulfiram [Antabuse] 250 mg PO DAILY 06/12/17 06/12/17 Losartan [Cozaar] 25 mg PO DAILY 06/12/17 06/12/17 hydrOXYzine HCl [Hydroxyzine HCl] 25 - 50 mg PO Q8H PRN 06/12/17 06/12/17 Previous Rx's Medication Instructions Recorded Nicotine Patch [Nicoderm] 21 mg TD DAILY #30 06/03/17 amLODIPine [Norvasc] 5 mg PO DAILY #30 tab 06/03/17 Allergies Allergy/AdvReac Type Severity Reaction Status Date / Time Sulfa (Sulfonamide Allergy Mild Rash Verified 05/29/17 18:49 Antibiotics) All systems ED: reviewed and negative except as stated. Review of Systems: As Per HPI Constitutional: Denies: fever, weakness Eyes: Denies: eye pain ENT ED: Denies: ear pain Cardiovascular: Reports: as per HPI, chest pain Respiratory: Denies: cough, dyspnea Gastrointestinal: Denies: abdominal pain Genitourinary: Denies: urgency Musculoskeletal: Reports: as per HPI. Denies: back pain, neck pain, joint swelling, arthralgia Neurological: Reports: as per HPI, headache. Denies: weakness, numbness, paresthesias Psychiatric: Denies: anxiety Endocrine: Denies: fatigue Fall PMH - Past Medical History Medical history: Reports: other Surgical history: Reports: other Psychiatric history: Reports: anxiety, depression - Social History Smoking Status: Current every day smoker Alcohol use: Reports: heavy Drug use: Reports: none Physical Exam - General Limitations: no limitations - Head Head exam: other (forehead lac 4 cm) - Eye Eye exam: Present: normal appearance, PERRL - ENT ENT exam: normal exam - Neck Neck exam: Present: normal inspection, full ROM - Chest Chest inspection: Present: normal inspection, symmetric chest wall rise. Absent : tenderness - Respiratory Respiratory exam: Present: normal lung sounds bilaterally. Absent: respiratory distress - Cardiovascular Cardiovascular exam: Present: regular rate, normal rhythm - Abdominal Exam Abdominal exam: Present: soft, Non-Tender. Absent: tenderness, distention, guarding - Extremities Exam Extremities exam: Present: normal inspection, full ROM - Neurological Exam Neurological exam: Present: alert, oriented X3, CN II-XII intact, other ( intoxicated) - Psychiatric Psychiatric exam: Present: normal affect Course Course Narrative: 56-year-old male with syncope and chest pain, EKG ordered, CBC BMP troponin, I did a d-dimer because the patient was not able to work out, however I do feel that he is a low risk for pulmonary embolus his chest pain and syncope and this must be evaluated. Check a blood alcohol level as well because he appears mildly intoxicated. - Reevaluation(s) Reevaluation #1: Alcohol was 113, d-dimer was 1100, plan CT of the chest, laceration repair updated tetanus, plan for admission secondary to chest pain, syncope Time: 20:20 Reevaluation #2: No evidence of pulmonary embolus, CT head negative, CTA negative except for right pulmonary nodules. Patient noted for alcohol intoxication, pulmonary nodules, syncope, chest pain. Time: 21:24 Vital Signs Temperature 97.5 F L 06/12/17 19:21 Pulse Rate 82 06/12/17 19:21 Respiratory Rate 18 06/12/17 19:21 Blood Pressure 105/59 06/12/17 19:21 O2 Sat by Pulse Oximetry 96 06/12/17 19:21 Temperature 97.5 F L 06/12/17 19:21 Pulse Rate 96 06/12/17 21:44 Respiratory Rate 18 06/12/17 21:44 Blood Pressure 111/65 06/12/17 21:44 O2 Sat by Pulse Oximetry 98 06/12/17 21:44 Oxygen Delivery Oxygen Delivery Room Air Procedures - Laceration Laceration 1 Site: scalp Side (If applicable): left Size (cm): 4 Description: linear, irregular Depth: simple, single layer Local Anesthetic: lidocaine 1%, with epi Amount of Anesthesia Used (mL): 5 Pre-repair: wound explored, irrigated extensively, deep structures intact, wound margins revised Skin layer closed with: nylon Size: 5-0 Number of sutures/dashawn: 5 Technique: simple, interrupted Fall - MDM Narrative Medical decision making narrative: 56 over male in [facility] for chest pain and syncope, laceration repaired admitted to Dr. peña to hospitalist accepted the patient, no ischemic changes on EKG, aspirin and Maalox given, - Differential Diagnosis Likely: syncope - Medical Records Medical records reviewed: Yes I reviewed the patient's medical records. - Lab Data Lab results reviewed: Yes I reviewed the patient's lab results. Result diagrams: 06/12/17 19:35 06/12/17 19:35 Lab Results 06/12/17 06/12/17 06/12/17 Range/Units 19:35 19:35 19:35 WBC 7.8 (4.3-11.1) K/mcL RBC 4.63 (4.19-5.50) M/mcL Hgb 14.0 (12.9-16.9) g/dL Hct 41.7 (37.5-50.1) % MCV 90.1 (83.0-100.0) fL MCH 30.2 (28.0-33.3) pg MCHC 33.6 (31.6-35.5) g/dL RDW 12.7 (11.5-14.5) % Plt Count 307 (140-400) K/mcL MPV 8.3 L (9.4-12.4) fL Immature Gran % 1.0 (0-4) % Seg Neutrophils % 61.5 % Lymphocytes % 27.3 % Monocytes % 8.2 % Eosinophils % 0.8 % Basophils % 1.2 % Neutrophils # 4.8 (1.6-8.9) K/mcL Lymphocytes # 2.1 (0.6-4.6) K/mcL Monocytes # 0.6 (0.0-1.3) K/mcL Eosinophils # 0.1 (0.0-0.6) K/mcL Basophils # 0.1 (0.0-0.2) K/mcL Immature Plt Fraction 2.1 (1.1-6.1) % D-Dimer 1125 H (0-500) ng/mLFEU Sodium 132 L (136-145) mEq/L Potassium 4.1 (3.5-4.5) mEq/L Chloride 97 L (98-109) mEq/L Carbon Dioxide 24 (19-29) mEq/L BUN 16 (8-26) mg/dL Creatinine 1.30 H (0.72-1.25) mg/dL Est GFR ( Amer) > 60 (> 60) Est GFR (Non-Af Amer) 57 L (> 60) BUN/Creatinine Ratio 12 (6-26) Glucose 119 H (70-99) mg/dL Calculated Osmolality 276 L (280-300) Calcium 8.7 (8.6-10.8) mg/dL Troponin I (0-0.03) ng/mL Ethyl Alcohol 113 H (0-10) mg/dL /06/21 Range/Units 19:35 WBC (4.3-11.1) K/mcL RBC (4.19-5.50) M/mcL Hgb (12.9-16.9) g/dL Hct (37.5-50.1) % MCV (83.0-100.0) fL MCH (28.0-33.3) pg MCHC (31.6-35.5) g/dL RDW (11.5-14.5) % Plt Count (140-400) K/mcL MPV (9.4-12.4) fL Immature Gran % (0-4) % Seg Neutrophils % % Lymphocytes % % Monocytes % % Eosinophils % % Basophils % % Neutrophils # (1.6-8.9) K/mcL Lymphocytes # (0.6-4.6) K/mcL Monocytes # (0.0-1.3) K/mcL Eosinophils # (0.0-0.6) K/mcL Basophils # (0.0-0.2) K/mcL Immature Plt Fraction (1.1-6.1) % D-Dimer (0-500) ng/mLFEU Sodium (136-145) mEq/L Potassium (3.5-4.5) mEq/L Chloride (98-109) mEq/L Carbon Dioxide (19-29) mEq/L BUN (8-26) mg/dL Creatinine (0.72-1.25) mg/dL Est GFR ( Amer) (> 60) Est GFR (Non-Af Amer) (> 60) BUN/Creatinine Ratio (6-26) Glucose (70-99) mg/dL Calculated Osmolality (280-300) Calcium (8.6-10.8) mg/dL Troponin I 0.00 (0-0.03) ng/mL Ethyl Alcohol (0-10) mg/dL - Radiology Data Radiology results reviewed: Yes I reviewed the patient's radiology results. Head CT 06/12/17 19:25 IMPRESSION: No acute intracranial abnormality. D/ / Dutch Alfredo MD / Dutch Alfredo MD Interpreting Provider: Dutch Alfredo MD Chest CTA 06/12/17 19:58 IMPRESSION: 1. No evidence of pulmonary embolism or aortic dissection. 2. No acute infiltrates are seen within the lungs. 3. Small nodules within the right lung. Recommendations below. RECOMMENDATIONS: Fleischner Society guidelines for follow-up and management of incidentally detected pulmonary nodules: Nodule size equals 6-8 mm In a low-risk patient, CT at 3-6 months, then consider CT at 18-24 months. In a high-risk patient, CT at 3-6 months, then CT at 18-24 months. - Low risk patients include individuals with minimal or absent history of smoking and other known risk factors. - High risk patients include individuals with a history or smoking or known risk factors. Radiology 2017 http://pubs.rsna.org/doi/full/10.1148/radiol.[email or web address] D/ / Dutch Alfredo MD / Dutch Alfredo MD Interpreting Provider: Dutch Alfredo MD - EKG Data EKG attestation: Yes I reviewed and interpreted this EKG. EKG shows normal: sinus rhythm ([address] 168 QRS [address] segment elevations or depressions unchanged from previous EKG.) Rate: normal Rhythm: NSR Interpretation: unchanged when compared to prior tracing (date) - Core Measures Measure Exclusions: contraindicated (Fall head lac) Attestation Statement - Attestation Attestation: I, Дмитрий Barreto, examined this patient and my medical decision-making was reviewed with the GIS COORDINATOR/PA/Advanced Practice Nurse/Resident Physician. I agree with the documented findings, disposition and treatment plan as described except to the extent set forth below. 56-year-old male brought in by EMS to the emergency department after a syncopal episode. Patient states that he was mowing the lawn, when inside to the bathroom and was found on the ground. Patient is unable to give a good history regarding the case and presentation or the circumstances regarding his fall the ground. Patient does admit to EtOH use prior to arrival to the emergency department. During her initial evaluation the patient reported epigastric pain. EMS states the patient was hypotensive on their initial evaluation. EKG showed normal sinus rhythm with rate of 83 without evidence of acute ischemia. CT of the head was negative for acute intracranial hemorrhage or fracture. Laceration repaired by resident and student. Patient agreed with plan for admission to the hospital for further care and evaluation of his syncope and epigastric pain to rule out ACS.
[2017-06-12] MEDS ORDERED: 0.9 % Sodium Chloride 1,000 ML IVC ONE (19:25)
[2017-06-12] MEDS ORDERED: Tdap (Boostrix) Vaccine 0.5 ML SYRINGE IM ONE (19:31)
[2017-06-12] MEDS ORDERED: Lidocaine/EPI 1:100k 1% 20 ML VIAL INFILT ONE (19:31)
[2017-06-12 19:42] LABS: Basophils # 0.1 K/mcL (0.0-0.2); Basophils % 1.2 %; Eosinophils # 0.1 K/mcL (0.0-0.6); Eosinophils % 0.8 %; Hematocrit 41.7 % (37.5-50.1); Immature Platelets 2.1 % (1.1-6.1); Lymphocytes # 2.1 K/mcL (0.6-4.6); Lymphocytes % 27.3 %; Mean Corpuscular HGB Conc 33.6 g/dL (31.6-35.5); Mean Corpuscular Hemoglobin 30.2 pg (28.0-33.3); Mean Corpuscular Volume 90.1 fL (83.0-100.0); Mean Platelet Volume 8.3 fL (9.4-12.4); Monocytes # 0.6 K/mcL (0.0-1.3); Monocytes % 8.2 %; Neutrophils # 4.8 K/mcL (1.6-8.9); Platelet Count 307 K/mcL (140-400); Red Blood Count 4.63 M/mcL (4.19-5.50); Red Cell Distribution Width 12.7 % (11.5-14.5); Segmented Neutrophils % 61.5 %
[2017-06-12 19:53] LABS: BUN/Creatinine Ratio 12 (6-26); Blood Urea Nitrogen 16 mg/dL (8-26); Calcium 8.7 mg/dL (8.6-10.8); Carbon Dioxide 24 mEq/L (19-29); Chloride 97 mEq/L (98-109); Ethanol 113 mg/dL (0-10); Glucose 119 mg/dL (70-99); Osmolality,Calculated 276 (280-300); Potassium 4.1 mEq/L (3.5-4.5); Sodium 132 mEq/L (136-145); eGFR For African Americans > 60 (> 60); eGFR For Non-African Americans 57 (> 60)
[2017-06-12] MEDS ORDERED: Mag Hydrox/Al Hydrox/Simeth 30 ML UDC PO STA (21:29)
[2017-06-12] MEDS ORDERED: Aspirin 81 MG TAB.CHEW PO STA (21:29)
[2017-06-12] MEDS ORDERED: Naloxone 0.4 MG/ML INJ IVP PRN (22:28)
[2017-06-12] MEDS ORDERED: *HR* Promethazine 25 MG/ML VIAL IVP PRN (22:35)
[2017-06-12] MEDS ORDERED: *HR* LORazepam 2 MG/ML VIAL IVP PRN ×3 (22:35)
--- NOTE | 2017-06-12 22:50 | Internal Med History&Physical ---
<Rajesh Reyna - Last Filed: 06/12/17 23:24> Date of Encounter: 06/12/17 Time of Encounter: 22:49 Assessment and Plan (1) Chest pain Current visit: Yes Status: Acute Admitted to midsternal CP this afternoon while mowing the lawn, EKG in ED NSR with no morphologic changes from prior EKG. Troponin negative at 0.00. Denies any dyspnea or chest pain at the moment. Admits to syncopal event after he went inside to rest. Patient has been drinking ETOH throughout the day but is unsure of the amount he ingested. Not very cooperative with the exam. Will place on tele, continuous pulse ox. Trend troponins, ordered echocardiogram. Will continue to monitor. Qualifiers: Chest pain type: unspecified Qualified Code(s): R07.9 - Chest pain, unspecified (2) Syncope Current visit: Yes Status: Acute Syncopal event today after developing CP mowing the lawn. Unsure of how long he was unconscious. CT head obtained in the ED and was normal. Does have a history of seizures and was previously seen as an outpatient by neurology with a recommendation for antiepileptic meds but he declined. Also h/oETOH abuse. Was drinking this afternoon. ETOH 113 in ED. Will work up to r/o neuro vs cardiogenic syncope. Orders to obtain Echocardiogram, Bilateral carotid duplex and orthostatic vs. Troponin in the ED was found to be negative but will continue to trend at this time. Qualifiers: Syncope type: heat syncope Encounter type: initial encounter Qualified Code(s): T67.1XXA - Heat syncope, initial encounter (3) RIGO (acute kidney injury) Current visit: Yes Status: Acute Creatinine has increased from baseline of 0.61 to 1.3. Started gentle IV hydration NS @100ml/hr. Will check CMP in am. (4) Alcohol intoxication Current visit: Yes Status: Acute Etoh 113 in ED. Patient with known history of alcoholism and multiple admissions for withdrawal and alcohol related seizures. Unable to obtain an adequate H&P d/t being uncooperative. Stopped antabuse. Began CIWA protocol. Qualifiers: Complication of substance-induced condition: uncomplicated Qualified Code(s ): F10.920 - Alcohol use, unspecified with intoxication, uncomplicated (5) Alcohol withdrawal Current visit: Yes Status: Chronic ETOH withdrawal history. Patient had an ETOH of 113 in the ED. Was uncooperative with examination and a poor historian. Was taking antabuse prior to admission. Stopped antabuse. Started CIWA protocol, and ordered banana bags. Checking LFT's in the am. SS consulted. Aspiration precautions implemented. Continue to monitor for signs and symptoms of withdrawal. Qualifiers: Complication of substance-induced condition: with unspecified complication Qualified Code(s): F10.239 - Alcohol dependence with withdrawal, unspecified (6) Laceration of skin of forehead without complication Current visit: Yes Status: Acute Acute skin laceration Lt forehead. Addressed in the ED. Continue to monitor site for signs of infection or bleeding. Qualifiers: Encounter type: initial encounter Qualified Code(s): S01.81XA - Laceration without foreign body of other part of head, initial encounter (7) Seizure Current visit: Yes Status: Chronic H/O chronic seizures. Has seen Neuro in the past with a recommendation of starting antiepileptic medication. However, the patient refused. Will consider a Neuro consult during this visit. Seizure precautions implemented as well as CIWA precautions. Banana bags ordered. (8) DVT prophylaxis Current visit: Yes Status: Acute Prolonged immobilization d/t bedrest orders with syncope. Risk for DVT. SC heparin d/t RIGO Internal Medicine - H&P: HPI Chief complaint: CP, syncope, ETHO abuse/withdrawal Admitted From: Home Plans for Post Hospital Care: Home History of present illness: Mr. Parker is a 56 year old male with a PMH of ETOH abuse, seizures, COPD, aspiration pneumonia, respiratory, anxiety and depression who presents to [facility] on 06-12-17 with syncope and a head laceration. All information obtained from chart review and from what information the patient was able to provide. Reports that he was mowing his lawn and began to feel some midsternal chest pain , then went inside to rest and became syncopal. " I don't know how long I was passed out". Patient hit is head during syncopal event and suffered a laceration to the left forehead which was sutured in the ED. A CT of the head was obtained and was found to be unremarkable with the exception of the laceration. An elevated D-dimer was found during the w/u so a CT chest was obtained, no PE noted but nodules were found. Lab workup was unremarkable with the exception of an elevated Cr from baseline. Cr result in ED was 1.3. Likely RIGO. Additionally, the patient was drinking at the time of the syncopal event and when interviewed in the ED he was unable to recall the amount of ETOH ingested. Lab ETOH was 113. The patient did mention a h/o seizures over the last few years but the ETOH has made him a poor historian during this assessment and he was unable to tell me how long he's been having them or who has taken care of them. He is being admitted for observation for further workup and evaluation. Past Med Surg Social Fam HX - Past Medical History Medical history: other Psychiatric history: anxiety, depression - Past Surgical History Surgical History: other - Social History Smoking Status: Current every day smoker Smokeless Tobacco Status: No Alcohol use: heavy Drug use: none - Family History Mother Adopted: No Living Status: Hx Family Cardiac Disorders: Yes Hx Family Respiratory Disorders: Yes Hx Family Cancer: Yes Hx Family GI Disorders: No Hx Family Endocrine Disorder: No Hx Family Neuromuscular Disorders: No Hx Family Neurologic Disorders: No Hx Family HEENT Disorders: No Hx Family Autoimmune Disorders: No Father Adopted: No Race: Family Member Ethnicity: Non- Living Status: Age at : 67 Cause of : heart disease Hx Family Neurologic Disorders: Yes (CVA) Internal Medicine - H&P: Meds Cyanocobalamin (Vitamin B-12) [Vitamin B-12] 100 mcg PO DAILY 05/29/17 [History] Folic Acid 1 mg PO DAILY 05/29/17 [History] Mv-Mn/FA/Vit K/Lycop/Lut/Coq10 [Daily Multivitamin Capsule] 1 tab PO DAILY 05/29 [History] Thiamine (B-1) [Vitamin B-1] 100 mg PO DAILY 05/29/17 [History] Nicotine Patch [Nicoderm] 21 mg TD DAILY #30 06/03/17 [Rx] amLODIPine [Norvasc] 5 mg PO DAILY #30 tab 06/03/17 [Rx] Disulfiram [Antabuse] 250 mg PO DAILY 06/12/17 [History] Losartan [Cozaar] 25 mg PO DAILY 06/12/17 [History] hydrOXYzine HCl [Hydroxyzine HCl] 25 - 50 mg PO Q8H PRN 08/08/17 [History] Allergies Sulfa (Sulfonamide Antibiotics) Allergy (Mild, Verified 05/29/17 18:49) Rash All Systems PM: A 10-system review of systems was performed and is negative for pertinent findings except as documented above in the HPI. - Constitutional Constitutional: falls, no chills, no fatigue, no fever(s), no night sweats - EENT Eyes: no blurry vision, no change in vision, no discharge, no pain, no photophobia, no tunnel vision Ears: no ear discharge, no ear pain, no tinnitus Nose, mouth and throat: no dysphagia, no nasal discharge, no neck pain, no sore throat - Cardiovascular Cardiovascular ROS IM: as per HPI, chest pain, lightheadedness, syncope, no diaphoresis, no dyspnea, no dyspnea on exertion, no edema, no palpitations - Respiratory Respiratory: no cough, no dyspnea, no dyspnea on exertion, no wheezing, no excessive phlegm production - Gastrointestinal Gastrointestinal: no abdominal pain, no diarrhea, no hematemesis, no hematochezia, no melena, no nausea, no vomiting - Musculoskeletal Musculoskeletal ROS IM: no muscle weakness, no numbness, no tingling - Integumentary Integumentary IM: no rash, no unusual bruising - Neurological Neurological ROS: dizziness, no confusion, no convulsions, no focal weakness, no loss of vision, no numbness, no tingling, no tremor(s) - Psychiatric Psychiatric: anxiety - Hematologic/Lymphatic Hematologic/Lymphatic: no easy bruising - Constitutional Vitals: Temp Pulse Resp BP Pulse Ox 97.5 F L 96 18 111/65 98 06/12/17 19:21 06/12/17 21:44 06/12/17 21:44 06/12/17 21:44 06/12/17 21:44 Exam: Was alert to self with loud verbal stimulus, however, unable to answer question appropriately, poor historian, likely d/t ETOH intoxication. - Head Head exam: Present: normocephalic Additional comments: Head laceration on Lt forehead above Lt brow. Sutures in place in the ED. - Expanded Head Exam Head exam expanded: Present: laceration. Absent: Steven's sign, contusion, raccoon eyes - Eye Eye exam: Present: PERRL, conjuntiva pink, sclera anicteric. Absent: nystagmus , periorbital swelling, periorbital tenderness Pupils: Present: PERRL Additional comments: Unable to assess EOMS as he was not cooperative at this time. - Neck Neck exam general surgery: Present: supple, trachea midline. Absent: lymphadenopathy, tenderness - Respiratory Respiratory exam: Present: CTAB. Absent: accessory muscle use, rales, rhonchi, wheezes - Cardiovascular Cardiovascular exam: Present: RRR, +S1, +S2. Absent: diastolic murmur, gallop, rubs, systolic murmur - GI/Abdominal GI/Abdominal exam: Present: normal bowel sounds, soft, no peritoneal signs. Absent: distended, tenderness - Extremities Exam Extremities exam: Present: normal capillary refill, warm, radial pulses palpable and symmetrical. Absent: calf tenderness, cyanotic, pedal edema - Neurological Exam Neurological exam: Absent: pronater drift, facial droop, speech deficit Additional comments: No obvious focal deficits, however, exam was limited by the patients cooperation d/t ETOH intoxication. - Psychiatric Psychiatric exam: Absent: manic, suicidal ideation - Skin Skin exam: Present: dry Internal Med - H&P Results - Labs CBC & Chem 7: 06/12/17 19:35 06/12/17 19:35 - EKG Data -: EKG Interpreted by Myself EKG shows normal: sinus rhythm Rate: normal - EKG Data Prior EKG available for review: yes When compared to previous EKG: there is no significant change Interpretation IM: normal EKG - Diagnostic Studies CT scan - head Status: image reviewed by me CT scan - chest Status: image reviewed by me <Dharmesh Vinson - Last Filed: 06/13/17 00:28> Date of Encounter: 06/13/17 Internal Medicine - H&P: HPI History of present illness: Mr. Parker is a 56 year old male All Systems PM: A 10-system review of systems was performed and is negative for pertinent findings except as documented above in the HPI. - Constitutional Vitals: Temp Pulse Resp BP Pulse Ox 98.0 F 110 15 144/94 90 06/13/17 00:01 06/13/17 00:01 06/13/17 00:01 06/13/17 00:01 06/13/17 00:01 Internal Med - H&P Results - Labs CBC & Chem 7: 06/12/17 19:35 08/08/17 19:35 - Attending Attestation I examined this patient and my medical decision-making was reviewed with the nurse practitioner. I agree with the documented findings, disposition and treatment plan as described except to the extent set forth below. She presented with chest pain. He had a syncopal event. He is still severely intoxicated. Plan: Place in observation. Monitor on telemetry. Trend troponin. Benign aback. Alcohol withdrawal precautions. I will add a stress test in the morning to evaluate for CAD given his chest pain and risk factors.
[2017-06-13] MEDS: 0.9 % Sodium Chloride 1,000 ML IVC SCH ×2 (01:15→09:44)
[2017-06-13 01:23] LABS: Basophils # 0.1 K/mcL (0.0-0.2); Basophils % 0.5 %; Eosinophils % 0.2 %; Hematocrit 43.5 % (37.5-50.1); Hemoglobin 14.6 g/dL (12.9-16.9); Immature Granulocytes % 0.6 % (0-4); Lymphocytes # 1.3 K/mcL (0.6-4.6); Lymphocytes % 12.7 %; Mean Corpuscular HGB Conc 33.6 g/dL (31.6-35.5); Mean Corpuscular Hemoglobin 30.3 pg (28.0-33.3); Mean Corpuscular Volume 90.2 fL (83.0-100.0); Mean Platelet Volume 8.8 fL (9.4-12.4); Monocytes # 0.5 K/mcL (0.0-1.3); Platelet Count 264 K/mcL (140-400); Red Blood Count 4.82 M/mcL (4.19-5.50); Red Cell Distribution Width 12.9 % (11.5-14.5)
[2017-06-13 01:34] LABS: Alanine Aminotransferase 8 Units/L (0-55); Albumin 3.4 g/dL (3.5-5.0); Alkaline Phosphatase 52 Units/L (38-126); Aspartate Amino Transferase 22 Units/L (5-34); BUN/Creatinine Ratio 16 (6-26); Bilirubin,Direct 0.3 mg/dL (0.0-0.5); Bilirubin,Indirect 0.3 mg/dL (0.0-1.2); Bilirubin,Total 0.6 mg/dL (0.2-1.2); Blood Urea Nitrogen 13 mg/dL (8-26); Calcium 8.8 mg/dL (8.6-10.8); Carbon Dioxide 24 mEq/L (19-29); Chloride 98 mEq/L (98-109); Globulin 3.4 g/dL (2.4-3.5); Glucose 92 mg/dL (70-99); Magnesium 1.8 mg/dL (1.6-2.6); Osmolality,Calculated 272 (280-300); Potassium 4.7 mEq/L (3.5-4.5); Sodium 131 mEq/L (136-145); Total Protein 6.8 g/dL (6.0-8.3); eGFR For African Americans > 60 (> 60); eGFR For Non-African Americans > 60 (> 60)
[2017-06-13] MEDS: Nicotine 21 MG PATCH.TD24 TD SCH ×2 (01:36→09:44)
[2017-06-13] MEDS ORDERED: *HR* Heparin 5,000 UNIT/ML VIAL SQ SCH (06:00)
[2017-06-13] MEDS ORDERED: *HR* Enoxaparin 40 MG/0.4 ML SYRINGE SQ SCH (06:00)
[2017-06-13] MEDS ORDERED: Regadenoson 0.4 MG/5 ML SYRINGE IVP ONE (07:20)
[2017-06-13] MEDS ORDERED: amLODIPine 5 MG TABLET PO SCH (09:00)
[2017-06-13] MEDS ORDERED: Multivit/Ca/Min/Fe/FA 1 TAB TABLET PO SCH (09:00)
--- NOTE | 2017-06-13 09:59 | Nuclear Medicine Stress Report ---
Regadenoson Nuclear Stress Name: Douglas Parker Date of Study: 06/13/2017 Date: 1960 Ht: 74.0 in Medical Record#: [id number] Age: 56 Wt: 168.0 lb Gender: Male Order #: [id number] Location: [facility] Room: Supervising Provider: Deanna Chen CNP Reading Physician: Santosh Ferreira DO, RALPH, TJ RIVERS Ordering Physician: Allie Molina CNP Primary Care Physician: Varun Jimenez M.D. Stress Technologist: Frank Carrillo, SKI PRODUCTION SUPERVISOR, CPFT Book Publisher: Meghan Jenkins Indications: Syncope Impression: Pharmacologic stress ECG is negative for ischemia at level of heart rate achieved. Gated EF = 68%. Perfusion imaging was negative for ischemia or infarct. History: History of Smoking Stress Test Summary: Stress Test Type: Pharmacologic Regadenoson 0.4mg/5ml given IV Baseline Information: Initial Heart Rate: 66 Blood Pressure: 138/90 Stress Information: Test Terminated Due to (primary): As per protocol Maximum Blood Pressure: 128/80 Maximum Heart Rate: 80 Percent Maximum Heart Rate Achieved: 49 Double Product: [id number] METS Reached: 1 Symptoms: Shortness of breath Nuclear Summary: SPECT myocardial perfusion imaging using Tc99m Sestamibi given intravenously was performed at rest and following cardiac stress testing. The resting images were obtained following initial dose of 11.4 mCi. Following stress an additional dose of 35.2 mCi was given at peak exercise or 30 seconds post regadenoson infusion. Medication Given: Time Medication Dose Units Route Findings: Stress Note * Resting ECG demonstrated normal sinus rhythm. * No baseline arrhythmias were noted. * Pharmacologic stress ECG is negative for ischemia at level of heart rate achieved. * No arrhythmias were noted during stress. * Patient had no chest pain during stress. Hemodynamic responses * Normal hemodynamic responses to pharmacologic stress. Study Quality * Study quality is average. Gated EF % * Gated EF = 68%. Left Ventricle * The left ventricle is not dilated. * LVEDV = 103 mL. NORMALS * Normal wall motion. * Normal segmental perfusion in rest. * Normal segmental perfusion in stress. TID * No evidence of transient ischemic dilatation. TID ratio * TID ratio = 1.00. Lung Uptake * There is no evidence of increase lung uptake. Updated by Santosh Ferreira DO, RALPH, SILVESTRE, TJ on 06/13/2017 9:52:06 AM electronically signed on 06/13/2017 9:52:27 AM with status of Final
[2017-06-13 11:33] VITALS: BP 120/76
--- NOTE | 2017-06-13 15:01 | Discharge Summary ---
Date of Encounter: 06/13/17 Time of Encounter: 14:56 - Discharge Diagnosis (1) Chest pain Priority: Primary Status: Ruled-out Qualifiers: Qualified Code(s): R07.9 - Chest pain, unspecified (2) Syncope Priority: Primary Status: Acute Qualifiers: Syncope type: heat syncope Encounter type: initial encounter Qualified Code(s): T67.1XXA - Heat syncope, initial encounter (3) Laceration of skin of forehead without complication Priority: Secondary Status: Acute Qualifiers: Encounter type: initial encounter Qualified Code(s): S01.81XA - Laceration without foreign body of other part of head, initial encounter (4) Alcohol intoxication Priority: Secondary Status: Acute Qualifiers: Complication of substance-induced condition: uncomplicated Qualified Code(s ): F10.920 - Alcohol use, unspecified with intoxication, uncomplicated (5) Tobacco abuse Priority: Secondary Status: Chronic - Discharge Medications Home Medications: Cyanocobalamin (Vitamin B-12) [Vitamin B-12] 100 mcg PO DAILY 05/29/17 [History] Folic Acid 1 mg PO DAILY 05/29/17 [History] Mv-Mn/FA/Vit K/Lycop/Lut/Coq10 [Daily Multivitamin Capsule] 1 tab PO DAILY 05/29 [History] Thiamine (B-1) [Vitamin B-1] 100 mg PO DAILY 05/29/17 [History] Nicotine Patch [Nicoderm] 21 mg TD DAILY #30 06/03/17 [Rx] amLODIPine [Norvasc] 5 mg PO DAILY #30 tab 06/03/17 [Rx] Disulfiram [Antabuse] 250 mg PO DAILY 06/12/17 [History] Losartan [Cozaar] 25 mg PO DAILY 06/12/17 [History] hydrOXYzine HCl [Hydroxyzine HCl] 25 - 50 mg PO Q8H PRN 06/12/17 [History] Allergies/Adverse Reactions: Allergies Sulfa (Sulfonamide Antibiotics) Allergy (Mild, Verified 05/29/17 18:49) Rash Procedures/tests Complete & Pending: Procedures Performed prior 72 hours Category Date Time Status NM radha perf SPECT multi [NM] Routine Exams 06/13/17 00:26 Taken EV carotid duplex imaging BI Routine Y 06/13/17 08:00 Completed EV echocardiogram Routine Y 06/13/17 08:00 Completed SP pharm nuclear stress Routine Y 06/13/17 07:00 Completed Date of admission: 06/12/17 21:55 Primary care physician: Varun Jimenez MD Consults: 06/12/17 22:36 Consult to Embroidery Machine Operator [CONS] Routine Reason for SW Consult: alcoholic - Patient Status Disposition: Home, Self-Care Condition: Good Overall status at discharge: patient is back to baseline - Discharge Instructions Follow Up With: Varun Jimenez MD [Primary Care Provider] - Additional Instructions: Need to f/u with PCP in 1 week Need to come back to ER or go to PCP for suture removal over your forehead - Diet and Activity Activity: increase activity as tolerated Diet: low salt diet Hospital course: Mr. Parker is a 56 year old male with a PMH of ETOH abuse, seizures, COPD, aspiration pneumonia, respiratory, anxiety and depression who presents to [facility] on 06-12-17 with syncope and a head laceration. Patient hit is head during syncopal event and suffered a laceration to the left forehead which was sutured in the ED. A CT of the head was obtained and was found to be unremarkable with the exception of the laceration. An elevated D-dimer was found during the w/u so a CT chest was obtained, no PE noted but nodules were found. Lab workup was unremarkable with the exception of an elevated Cr from baseline. Cr result in ED was 1.3. Likely RIGO. Additionally, the patient was drinking at the time of the syncopal event and when interviewed in the ED he was unable to recall the amount of ETOH ingested. Lab ETOH was 113. Pt was placed on property assessment monitor and checked his serial troponin x3 which were negative. He did go for cardiac stress test , which came back as negative for any ischemia. He also had 2 D Echo done which showed : LVEF 60-65%. Normal LV chamber size, wall thickness and function. Pseudonormal diastolic function. Pt denied any more CP / SOB. He is tolerating PO intake well. I did behavioral school counselors the pt about quitting drinking alcohol. He is willing to go to walk in rehab clinic this time. Our SW did provided him all the information for rehab clinics. At the time of discharge his vitals are : BP: 120/76, HR: 74 RR: 15 Spo2 95/ RA - Time Spent with Patient Total time spent providing and/or coordinating discharge services: - Constitutional Vitals: Temp Pulse Resp BP Pulse Ox 98.4 F 74 15 120/76 97 06/13/17 11:32 06/13/17 11:32 06/13/17 11:32 06/13/17 11:32 06/13/17 11:32 General appearance: Present: A&O X 3, pleasant, no acute distress - Head Head exam: Present: atraumatic Additional comments: laceration over Left forehead with stitches on - Respiratory Respiratory exam: Present: CTAB. Absent: accessory muscle use, rales, rhonchi, wheezes - Cardiovascular Cardiovascular exam: Present: RRR, +S1, +S2. Absent: diastolic murmur, gallop, rubs, systolic murmur - GI/Abdominal GI/Abdominal exam: Present: normal bowel sounds, soft, no peritoneal signs. Absent: distended, tenderness - Extremities Exam Extremities exam: Absent: calf tenderness, pedal edema, tenderness - Psychiatric Psychiatric exam: Present: anxious
[2017-06-13] MEDS ORDERED: Thiamine (B-1) 100 MG, Folic Acid 1 MG, MVI, adult with vitamin K 10 ML in 0.9 % Sodi... IVPB SCH (18:00)
--- NOTE | 2017-06-13 20:25 | Electrocardiograph Report ---
[place] [id number] Test Date: 2017-06-12 Pat Name: Douglas Parker Department: 104 Room: 3B Gender: M Information Coder: [facility] : 1960 Requested By: Altaf Ambriz Order Number: [id number] Reading MD: Sumeet Xiong MD Measurements Intervals [place] Rate: 83 P: 65 OK: 168 QRS: 60 QRSD: 94 T: 74 QT: 395 QTc: 434 Interpretive Statements SINUS RHYTHM Electronically Signed On 06-13-2017 20:23:50 EDT by Sumeet Xiong MD
--- NOTE | 2017-06-15 15:30 | Carotid Imaging Report ---
Carotid Duplex Patient Name:Douglas Parker Order Number:[id number] Procedure Date:06/13/2017 Date:1960Age:56 yrs Gender:Male Lt BP:150 / 80 mmHg Rt.BP:146 / 89 mmHgHeart Rate: Location:[facility] Room #: [facility] Hat Cleaner:Noy Jordan, RDCS, RVT Referring MD:Rajesh Reyna DIRECTOR CLIENT medical secretary:Varun Jimenez M.D. Reading MD:Charly Pryor MD , FACS Primary Indications:Syncope Risk Factors Yes/No Hypertension No Diabetes No Hypercholesterolemia No Smoking Current Yes Hx of TIA No Hx of CVA No Impressions: Findings: Bilateral carotid systems essentially normal. Recommendations: After imaging the patient returned to their room. Test completed on 06/13/2017 at 9:02:49 am. Findings Carotid Duplex: Hansen scale imaging combined with Doppler flow analysis suggests normal findings on the right. Right: There is antegrade spectral Doppler flow patterns in the right vertebral artery. Left: There is nonstenotic plaque in the left bifurcation. There is smooth heterogeneous plaque. There is antegrade spectral Doppler flow patterns in the left vertebral artery. Prior Study: No prior study available for comparison. Carotid Results Right PSV EDV Assessment Proximal CCA 75 20 Normal Mid CCA 86 20 Normal Distal CCA 64 23 Normal Bifurcation 32 8 Normal Proximal ICA 41 17 Normal Mid ICA 52 23 Normal Distal ICA 62 28 Normal ECA 58 15 Normal Vertebral Artery 36 14 Antegrade Flow Left PSV EDV Assessment Proximal CCA 67 13 Normal Mid CCA 78 20 Normal Distal CCA 66 18 Normal Bifurcation 25 4 Non Stenotic Plaque Proximal ICA 33 12 Normal Mid ICA 39 15 Normal Distal ICA 65 28 Normal ECA 48 13 Normal Vertebral Artery 33 13 Antegrade Flow Ratio's Right ICA/CCA Ratio: 0.72 ICA/CCA Values: 62/86 Left ICA/CCA Ratio: 0.83 ICA/CCA Values: 65/78 Updated by Charly Pryor MD, FACS on 06/15/2017 3:23:12 PM Charly Pryor MD electronically signed on 06/15/2017 3:23:36 PM with status of Final
== END 2017-06-13 16:20 | disposition home or self-care (01) ==
LOC: 3BNU 19:15 → EMEROO 19:15 → 3BNU 23:48
PROVIDERS: ADMIT Internal Medicine; ATTEND Nurse Practitioner Family

== ENCOUNTER 2020-05-20 19:49 | Inpatient (IN) ==
[2020-05-20] MEDS ORDERED: Aspirin 81 MG TAB.CHEW PO ONE (19:54)
[2020-05-20] MEDS ORDERED: Ondansetron 4 MG/2 ML VIAL IVP ONE (20:16)
[2020-05-20] MEDS: 0.9 % Sodium Chloride 1,000 ML IVC SCH ×2 (20:25→20:48)
[2020-05-20 20:38] LABS: Eosinophils # 0.1 K/mcL (0.0-0.6); Eosinophils % 1.5 %; Hematocrit 41.4 % (37.5-50.1); Hemoglobin 14.3 g/dL (12.9-16.9); Immature Granulocytes % 0.3 % (0-4); Lymphocytes # 1.3 K/mcL (0.6-4.6); Mean Corpuscular HGB Conc 34.5 g/dL (31.6-35.5); Mean Corpuscular Hemoglobin 30.3 pg (28.0-33.3); Mean Corpuscular Volume 87.7 fL (83.0-100.0); Mean Platelet Volume 9.2 fL (9.4-12.4); Monocytes # 0.5 K/mcL (0.0-1.3); Monocytes % 11.8 %; Platelet Count 114 K/mcL (140-400); Red Blood Count 4.72 M/mcL (4.19-5.50); Red Cell Distribution Width 11.9 % (11.5-14.5); Segmented Neutrophils % 51.4 %; White Blood Count 3.9 K/mcL (4.3-11.1)
[2020-05-20] MEDS ORDERED: *HR* LORazepam 2 MG/ML VIAL IVP ONE (20:39)
[2020-05-20] MEDS ORDERED: Metoclopramide 10 MG/2 ML VIAL IVP ONE (20:43)
[2020-05-20 20:48] LABS: INR 0.9; Prothrombin Time 10.3 Seconds (9.4-12.1)
[2020-05-20 20:51] LABS: Activated Partial Thrombo Time 31.3 Seconds (26.0-36.0)
[2020-05-20 21:00] LABS: Alanine Aminotransferase 77 Units/L (7-52); Albumin 4.4 g/dL (3.5-5.7); Albumin/Globulin Ratio 2.1 (1.1-2.2); Alkaline Phosphatase 69 Units/L (34-104); Aspartate Amino Transferase 112 Units/L (13-39); BUN/Creatinine Ratio 6 (6-26); Bilirubin,Direct 0.2 mg/dL (0.0-0.2); Bilirubin,Indirect 0.4 mg/dL (0.0-1.0); Bilirubin,Total 0.6 mg/dL (0.3-1.0); Blood Urea Nitrogen 3 mg/dL (6-20); Calcium 8.1 mg/dL (8.6-10.3); Carbon Dioxide 23 mEq/L (23-29); Chloride 91 mEq/L (98-107); Globulin 2.1 g/dL (2.4-3.5); Glucose 111 mg/dL (70-105); Lipase 52 Units/L (11-82); Osmolality,Calculated 253 (280-300); Potassium 3.6 mEq/L (3.5-5.1); Sodium 123 mEq/L (136-145); Total Protein 6.5 g/dL (6.4-8.9); Troponin I < 0.03 ng/mL (< 0.04); eGFR For African Americans > 60 (> 60); eGFR For Non-African Americans > 60 (> 60)
[2020-05-20] MEDS ORDERED: Isovue-370 500 ML BOTTLE IVP ONE (21:09)
[2020-05-20 22:05] LABS: Ethanol 197 mg/dL (Less than 10)
[2020-05-21] MEDS ORDERED: *HR* Promethazine 25 MG/ML VIAL IVP PRN (00:21)
[2020-05-21] MEDS ORDERED: Naloxone 0.4 MG/ML INJ IVP PRN (00:21)
[2020-05-21] MEDS ORDERED: *HR* LORazepam 2 MG/ML VIAL IVP PRN ×4 (00:24→11:28)
[2020-05-21] MEDS: Thiamine (B-1) 100 MG TABLET PO SCH ×2 (01:21→08:10)
[2020-05-21] MEDS: 0.9 % Sodium Chloride 1,000 ML IVC SCH ×2 (01:21→12:29)
[2020-05-21] MEDS: Folic Acid 1 MG TABLET PO SCH (08:10)
[2020-05-21 09:21] LABS: Hemoglobin 14.3 g/dL (12.9-16.9)
[2020-05-21 09:22] LABS: Basophils % 1.2 %; Immature Granulocytes % 0.2 % (0-4)
[2020-05-21 09:23] LABS: Basophils # 0.1 K/mcL (0.0-0.2); Eosinophils # 0.1 K/mcL (0.0-0.6); Eosinophils % 1.2 %; Hematocrit 41.7 % (37.5-50.1); Immature Platelets 3.1 % (1.1-6.1); Lymphocytes # 0.8 K/mcL (0.6-4.6); Lymphocytes % 18.8 %; Mean Corpuscular HGB Conc 34.3 g/dL (31.6-35.5); Mean Corpuscular Hemoglobin 30.2 pg (28.0-33.3); Mean Platelet Volume 9.1 fL (9.4-12.4); Monocytes # 0.4 K/mcL (0.0-1.3); Monocytes % 8.9 %; Platelet Count 100 K/mcL (140-400); Red Blood Count 4.74 M/mcL (4.19-5.50); Segmented Neutrophils % 69.7 %; White Blood Count 4.3 K/mcL (4.3-11.1)
[2020-05-21 09:37] LABS: Prothrombin Time 10.9 Seconds (9.4-12.1)
[2020-05-21 09:46] LABS: Alanine Aminotransferase 87 Units/L (7-52); Albumin 3.9 g/dL (3.5-5.7); Albumin/Globulin Ratio 2.1 (1.1-2.2); Alkaline Phosphatase 64 Units/L (34-104); Aspartate Amino Transferase 142 Units/L (13-39); BUN/Creatinine Ratio 10 (6-26); Bilirubin,Total 0.9 mg/dL (0.3-1.0); Blood Urea Nitrogen 5 mg/dL (6-20); Calcium 8.3 mg/dL (8.6-10.3); Carbon Dioxide 24 mEq/L (23-29); Chloride 99 mEq/L (98-107); Chol/HDL Ratio 1.6 (0-4.9); Cholesterol 152 mg/dL (< 200); Globulin 1.9 g/dL (2.4-3.5); Glucose 99 mg/dL (70-105); HDL Cholesterol 98 mg/dL (40-59); LDL Cholesterol,Calculated 48 mg/dL (< 100); Magnesium 1.7 mg/dL (1.6-2.6); Osmolality,Calculated 267 (280-300); Phosphorous 3.6 mg/dL (2.7-4.5); Potassium 4.1 mEq/L (3.5-5.1); Sodium 130 mEq/L (136-145); Total Protein 5.8 g/dL (6.4-8.9); Triglycerides 30 mg/dL (< 150); eGFR For African Americans > 60 (> 60); eGFR For Non-African Americans > 60 (> 60)
[2020-05-21 09:55] LABS: Thyroid Stimulating Hormone 2.081 mcIU/mL (0.340-5.600)
[2020-05-21 10:11] LABS: Folate > 22.3 ng/mL (3.0-16.0); Vitamin B12 > 1500 pg/mL (250-1100)
[2020-05-21 11:49] LABS: Sodium, Urine 102.9 mEq/L
[2020-05-21 13:27] LABS: BUN/Creatinine Ratio 9 (6-26); Blood Urea Nitrogen 6 mg/dL (6-20); Calcium 8.7 mg/dL (8.6-10.3); Carbon Dioxide 27 mEq/L (23-29); Chloride 98 mEq/L (98-107); Glucose 99 mg/dL (70-105); Osmolality,Calculated 270 (280-300); Potassium 4.5 mEq/L (3.5-5.1); Sodium 131 mEq/L (136-145); eGFR For African Americans > 60 (> 60); eGFR For Non-African Americans > 60 (> 60)
[2020-05-21 20:50] LABS: BUN/Creatinine Ratio 10 (6-26); Blood Urea Nitrogen 7 mg/dL (6-20); Calcium 8.7 mg/dL (8.6-10.3); Carbon Dioxide 26 mEq/L (23-29); Chloride 97 mEq/L (98-107); Glucose 75 mg/dL (70-105); Osmolality,Calculated 267 (280-300); Potassium 3.9 mEq/L (3.5-5.1); Sodium 130 mEq/L (136-145); eGFR For African Americans > 60 (> 60); eGFR For Non-African Americans > 60 (> 60)
[2020-05-22 01:26] LABS: Basophils % 0.8 %; Eosinophils # 0.1 K/mcL (0.0-0.6); Eosinophils % 2.5 %; Hematocrit 40.7 % (37.5-50.1); Hemoglobin 13.7 g/dL (12.9-16.9); Immature Granulocytes % 0.2 % (0-4); Immature Platelets 4.4 % (1.1-6.1); Lymphocytes # 1.4 K/mcL (0.6-4.6); Lymphocytes % 26.7 %; Mean Corpuscular HGB Conc 33.7 g/dL (31.6-35.5); Mean Corpuscular Volume 89.1 fL (83.0-100.0); Monocytes # 0.5 K/mcL (0.0-1.3); Monocytes % 9.9 %; Neutrophils # 3.1 K/mcL (1.6-8.9); Red Blood Count 4.57 M/mcL (4.19-5.50); Red Cell Distribution Width 12.2 % (11.5-14.5); Segmented Neutrophils % 59.9 %; White Blood Count 5.2 K/mcL (4.3-11.1)
[2020-05-22 01:30] LABS: Platelet Count 94 K/mcL (140-400)
[2020-05-22 01:51] LABS: BUN/Creatinine Ratio 10 (6-26); Blood Urea Nitrogen 6 mg/dL (6-20); Calcium 8.6 mg/dL (8.6-10.3); Carbon Dioxide 26 mEq/L (23-29); Chloride 97 mEq/L (98-107); Glucose 83 mg/dL (70-105); Osmolality,Calculated 267 (280-300); Sodium 130 mEq/L (136-145); eGFR For African Americans > 60 (> 60); eGFR For Non-African Americans > 60 (> 60)
[2020-05-22 03:11] VITALS: BP 156/98
[2020-05-22] MEDS: Thiamine (B-1) 100 MG TABLET PO SCH (08:06)
[2020-05-22] MEDS: Folic Acid 1 MG TABLET PO SCH (08:06)
[2020-05-22] MEDS ORDERED: Patient Taking Own Medication 1 EACH PO SCH (09:00)
== END 2020-05-22 10:55 | disposition home or self-care (01) | DRG 641 ==
LOC: EMEROOARM 19:49 → 2NENU 19:49 → EMEROOARM 21:28 → 2NENU 05-21 00:10 → SUATTDRO 05-21 12:29
PROVIDERS: ADMIT Internal Medicine; ATTEND Family Medicine

== ENCOUNTER 2020-05-24 11:35 | Observation (INO) ==
[2020-05-24] MEDS ORDERED: *HR* LORazepam 2 MG/ML VIAL IVP ONE (12:09)
[2020-05-24] MEDS ORDERED: 0.9 % Sodium Chloride 1,000 ML IVC ONE (12:09)
[2020-05-24 12:29] LABS: Basophils # 0.1 K/mcL (0.0-0.2); Eosinophils # 0.1 K/mcL (0.0-0.6); Eosinophils % 1.2 %; Hematocrit 41.8 % (37.5-50.1); Hemoglobin 14.5 g/dL (12.9-16.9); Immature Granulocytes % 0.5 % (0-4); Lymphocytes # 1.1 K/mcL (0.6-4.6); Lymphocytes % 18.2 %; Mean Corpuscular HGB Conc 34.7 g/dL (31.6-35.5); Mean Corpuscular Hemoglobin 30.7 pg (28.0-33.3); Mean Corpuscular Volume 88.4 fL (83.0-100.0); Mean Platelet Volume 9.1 fL (9.4-12.4); Monocytes # 0.5 K/mcL (0.0-1.3); Neutrophils # 4.2 K/mcL (1.6-8.9); Platelet Count 111 K/mcL (140-400); Red Blood Count 4.73 M/mcL (4.19-5.50); Red Cell Distribution Width 12.1 % (11.5-14.5); Segmented Neutrophils % 70.1 %
[2020-05-24 12:49] LABS: Acetaminophen < 10 mcg/mL (10-20); Alanine Aminotransferase 62 Units/L (7-52); Albumin 4.4 g/dL (3.5-5.7); Albumin/Globulin Ratio 1.8 (1.1-2.2); Alkaline Phosphatase 69 Units/L (34-104); Aspartate Amino Transferase 66 Units/L (13-39); BUN/Creatinine Ratio 5 (6-26); Bilirubin,Direct 0.1 mg/dL (0.0-0.2); Bilirubin,Indirect 0.3 mg/dL (0.0-1.0); Bilirubin,Total 0.4 mg/dL (0.3-1.0); Blood Urea Nitrogen 3 mg/dL (6-20); Calcium 9.2 mg/dL (8.6-10.3); Carbon Dioxide 27 mEq/L (23-29); Chloride 94 mEq/L (98-107); Ethanol 28 mg/dL (Less than 10); Globulin 2.4 g/dL (2.4-3.5); Glucose 110 mg/dL (70-105); Osmolality,Calculated 267 (280-300); Potassium 4.4 mEq/L (3.5-5.1); Salicylate < 2.5 mg/dL (15.0-30.0); Sodium 130 mEq/L (136-145); Total Protein 6.8 g/dL (6.4-8.9); eGFR For African Americans > 60 (> 60); eGFR For Non-African Americans > 60 (> 60)
[2020-05-24 13:02] LABS: Bilirubin,Urine Negative (Negative); Blood,Urine Trace (Negative); Clarity,Urine Clear (Clear); Color,Urine Light-Yellow (Yellow); Glucose,Urine (UA) Normal (Normal); Ketones,Urine Negative (Negative); Leukocyte Esterase,Urine Negative (Negative); Mucus,Urine Few per lpf (None-Few); Nitrite,Urine Negative (Negative); Protein,Urine Negative (Neg-Trace); Specific Gravity,Urine 1.009 (1.010-1.025); Urobilinogen,Urine Normal (Normal); WBC,Urine 0-3 per hpf (0-3)
[2020-05-24 13:08] LABS: Amphetamine Screen,Urine Negative ng/mL (Cutoff=1000); Barbiturate Screen,Urine Negative ng/mL (Cutoff=200); Benzodiazepines Screen,Urine Negative ng/mL (Cutoff=200); Cannabinoid Screen,Urine Negative ng/mL (Cutoff = 50); Cocaine Screen,Urine Negative ng/mL (Cutoff= 300); Opiate Screen,Urine Negative ng/mL (Cutoff=300); Phencyclidine Screen,Urine Negative ng/mL (Cutoff=25)
[2020-05-24] MEDS ORDERED: Naloxone 0.4 MG/ML INJ IVP PRN (14:59)
[2020-05-24] MEDS ORDERED: Ondansetron 4 MG/2 ML VIAL IVP PRN (14:59)
[2020-05-24] MEDS ORDERED: 0.9 % Sodium Chloride 1,000 ML IVC SCH (15:00)
[2020-05-24] MEDS ORDERED: *HR* LORazepam 2 MG/ML VIAL IVP PRN ×3 (15:58)
[2020-05-24] MEDS: Nicotine 21 MG PATCH.TD24 TD SCH (16:17)
[2020-05-25 03:05] LABS: Basophils # 0.1 K/mcL (0.0-0.2); Basophils % 1.1 %; Eosinophils # 0.1 K/mcL (0.0-0.6); Eosinophils % 2.7 %; Hematocrit 40.5 % (37.5-50.1); Hemoglobin 13.8 g/dL (12.9-16.9); Immature Granulocytes % 0.6 % (0-4); Immature Platelets 4.4 % (1.1-6.1); Lymphocytes # 1.5 K/mcL (0.6-4.6); Lymphocytes % 30.9 %; Mean Corpuscular HGB Conc 34.1 g/dL (31.6-35.5); Mean Corpuscular Hemoglobin 30.7 pg (28.0-33.3); Mean Platelet Volume 9.9 fL (9.4-12.4); Monocytes # 0.5 K/mcL (0.0-1.3); Monocytes % 10.8 %; Neutrophils # 2.6 K/mcL (1.6-8.9); Platelet Count 111 K/mcL (140-400); Red Cell Distribution Width 12.3 % (11.5-14.5); Segmented Neutrophils % 53.9 %; White Blood Count 4.7 K/mcL (4.3-11.1)
[2020-05-25 03:21] LABS: Alanine Aminotransferase 47 Units/L (7-52); Albumin 3.8 g/dL (3.5-5.7); Albumin/Globulin Ratio 1.8 (1.1-2.2); Alkaline Phosphatase 58 Units/L (34-104); Aspartate Amino Transferase 46 Units/L (13-39); BUN/Creatinine Ratio 13 (6-26); Bilirubin,Total 0.7 mg/dL (0.3-1.0); Blood Urea Nitrogen 8 mg/dL (6-20); Calcium 8.2 mg/dL (8.6-10.3); Carbon Dioxide 27 mEq/L (23-29); Chloride 99 mEq/L (98-107); Globulin 2.1 g/dL (2.4-3.5); Glucose 84 mg/dL (70-105); Magnesium 1.8 mg/dL (1.6-2.6); Osmolality,Calculated 272 (280-300); Phosphorous 4.2 mg/dL (2.7-4.5); Sodium 132 mEq/L (136-145); Total Protein 5.9 g/dL (6.4-8.9); eGFR For African Americans > 60 (> 60); eGFR For Non-African Americans > 60 (> 60)
[2020-05-25] MEDS ORDERED: Thiamine (B-1) 100 MG TABLET PO SCH (09:00)
[2020-05-25] MEDS ORDERED: Aspirin Enteric Coated 81 MG Tablet PO SCH (09:00)
[2020-05-25] MEDS ORDERED: Folic Acid 1 MG TABLET PO SCH (09:00)
[2020-05-25] MEDS: Nicotine 21 MG PATCH.TD24 TD SCH (09:36)
[2020-05-25 11:43] VITALS: BP 135/83
== END 2020-05-25 14:52 | disposition other institution (70) ==
LOC: 3BNU 11:35 → EMEROOARM 11:35 → SUATTDRO 14:36 → 3BNU 15:29
PROVIDERS: ADMIT Internal Medicine; ATTEND Internal Medicine